=== PATIENT | male | born 1940 | race Caucasian/White ===

== ENCOUNTER 2019-11-20 14:42 | Inpatient (IN) | payer MEDICARE ==
[~2019-11-20] VITALS: Ht 177.8 cm; Wt 62.4 kg
--- NOTE | 2019-11-20 14:45 | NUR ---
Admission Note with Justification for Admission to [facility] Patient admitted to [facility] for protective oversight for emergency stabilization of acute psychiatric crisis. Pt admitted from: [facility] Mode of arrival: Wheelchair van Accompanied By: Wheelchair Van personnel Precipitating behaviors that initiated intake and admission: manic, lying in driveway, yelling at family, hearing voices,delusional, moving from 1 subject to another rapidly, paranoid, racing thoughts, insomnia. Description of failure of out patient attempts at stabilization in previous setting list behavior and medication trials: crisis intervention team in [facility]. Behaviors and assessment findings upon admission: Pt is calm upon admission. Interactive with staff. States that he is a mystic, grandiose thoughts. Compliant with cares. Plan: Admit for protective oversight for adjustment and stabilization of medications, behaviors and mood. Intense treatment regimen including groups, medication adjustments, therapy, consistent regimen for ADL's, self care, and sleep hygiene. Daily monitoring by Inpatient staff, Psychiatry, and Medical Physician.
[2019-11-20] MEDS ORDERED: ACETAMINOPHEN 325 MG TABLET PO PRN (15:30)
[2019-11-20] MEDS ORDERED: METHYL SALICYLATE/MENTHOL TOPICAL OINTMENT 57GM TUBE. TP PRN (15:30)
[2019-11-20] MEDS ORDERED: MAGNESIUM HYDROXIDE 2,400 MG/30 ML ORAL.SUSP. PO PRN (15:30)
[2019-11-20] MEDS ORDERED: MAG HYDROX/AL HYDROX/SIMETH 30 ML ORAL.SUSP PO PRN (15:30)
[2019-11-20] MEDS ORDERED: LITH300T22 PO (16:25)
[2019-11-20] MEDS ORDERED: RISP0.5T3 PO (16:25)
[2019-11-20] MEDS ORDERED: LEVO25TA4 PO (16:25)
[2019-11-20] MEDS ORDERED: OLAN5TAB9 PO (16:25)
[2019-11-20 16:58] LABS: BASO % 0 % (0-3); EOS # 0.1 x10^3/uL (0.0-0.7); EOS % 1 % (0-3); HEMATOCRIT 43.3 % (39.0-53.0); HEMOGLOBIN 14.4 g/dL (13.0-17.5); LYMPH % 10 % (24-48); MEAN CORPUSCULAR HEMOGLOBIN 32 pg (25-35); MEAN CORPUSCULAR HGB CONC 33 g/dL (31-37); MEAN CORPUSCULAR VOLUME 95 fL (79-100); MONO # 0.6 x10^3/uL (0.0-1.1); MONO % 6 % (0-9); NEUT # 8.1 x10^3uL (1.8-7.7); NEUT % 82 % (31-73); PLATELET COUNT 302 x10^3/uL (140-400); RED BLOOD COUNT 4.58 x10^6/uL (4.30-5.70); RED CELL DISTRIBUTION WIDTH 13.6 % (11.5-14.5); WHITE BLOOD COUNT 9.8 x10^3/uL (4.0-11.0)
[2019-11-20 17:14] LABS: ALBUMIN/GLOBULIN RATIO 0.7 (1.0-1.7); CALCIUM 9.4 mg/dL (8.5-10.1); CREATININE 1.6 mg/dL (0.7-1.3); GFR 41.9; MAGNESIUM 2.4 mg/dL (1.8-2.4); POTASSIUM 3.7 mmol/L (3.5-5.1); TOTAL BILIRUBIN 0.3 mg/dL (0.2-1.0); TOTAL PROTEIN 7.2 g/dL (6.4-8.2)
[2019-11-20 18:26] VITALS: BP 134/81
[2019-11-20 18:50] LABS: BILIRUBIN,URINE NEG (NEG); CLARITY,URINE CLEAR; COLOR,URINE YELLOW; GLUCOSE,URINE NEG (NEG)
[2019-11-20 18:51] LABS: BACTERIA,URINE 0 /HPF (0-FEW); NITRITE,URINE NEG (NEG); RBC,URINE RARE /HPF (0-2); SQUAMOUS EPITHELIAL CELL,UR OCC /LPF; UROBILINOGEN,URINE 0.2 mg/dL (0.2 mg/dL); WBC,URINE OCC /HPF (0-4)
[2019-11-20] MEDS: risperiDONE 0.5 MG TABLET. PO SCH (20:37)
[2019-11-20] MEDS: LITHIUM CARBONATE ER 300 MG TABLET.ER PO SCH (20:37)
--- NOTE | 2019-11-20 22:15 | PDOC ---
Exam Note: Quoc Note: Please also refer to the separate dictated note~for this date of service dictated separately.~Patient seen individually. Discussed the patient with Nursing staff reviewed the chart.~Reviewed interim history and current functioning. Reviewed vital signs,~Labs/ Radiology~and current medications noted below. Continue current treatment with the changes noted in the dictated addendum note Assessment: Vital Signs/I&O: Vital Signs Date Time Temp Pulse Resp B/P (MAP) Pulse Ox O2 Delivery O2 Flow Rate FiO2 11/20/19 18:26 98.9 95 18 134/81 (98) 95 Labs: Laboratory Tests Test 11/20/19 16:41 11/20/19 18:30 White Blood Count 9.8 x10^3/uL (4.0-11.0) Red Blood Count 4.58 x10^6/uL (4.30-5.70) Hemoglobin 14.4 g/dL (13.0-17.5) Hematocrit 43.3 % (39.0-53.0) Mean Corpuscular Volume 95 fL (79-100) Mean Corpuscular Hemoglobin 32 pg (25-35) Mean Corpuscular Hemoglobin Concent 33 g/dL (31-37) Red Cell Distribution Width 13.6 % (11.5-14.5) Platelet Count 302 x10^3/uL (140-400) Neutrophils (%) (Auto) 82 % (31-73) H Lymphocytes (%) (Auto) 10 % (24-48) L Monocytes (%) (Auto) 6 % (0-9) Eosinophils (%) (Auto) 1 % (0-3) Basophils (%) (Auto) 0 % (0-3) Neutrophils # (Auto) 8.1 x10^3uL (1.8-7.7) H Lymphocytes # (Auto) 1.0 x10^3/uL (1.0-4.8) Monocytes # (Auto) 0.6 x10^3/uL (0.0-1.1) Eosinophils # (Auto) 0.1 x10^3/uL (0.0-0.7) Basophils # (Auto) 0.0 x10^3/uL (0.0-0.2) Sodium Level 139 mmol/L (136-145) Potassium Level 3.7 mmol/L (3.5-5.1) Chloride Level 105 mmol/L (98-107) Carbon Dioxide Level 28 mmol/L (21-32) Anion Gap 6 (6-14) Blood Urea Nitrogen 19 mg/dL (8-26) Creatinine 1.6 mg/dL (0.7-1.3) H Estimated GFR (Cockcroft-Gault) 41.9 BUN/Creatinine Ratio 12 (6-20) Glucose Level 111 mg/dL (70-99) H Calcium Level 9.4 mg/dL (8.5-10.1) Magnesium Level 2.4 mg/dL (1.8-2.4) Total Bilirubin 0.3 mg/dL (0.2-1.0) Aspartate Amino Transferase (AST) 22 U/L (15-37) Alanine Aminotransferase (ALT) 42 U/L (16-63) Alkaline Phosphatase 76 U/L (46-116) Total Protein 7.2 g/dL (6.4-8.2) Albumin 3.0 g/dL (3.4-5.0) L Albumin/Globulin Ratio 0.7 (1.0-1.7) L Urine Collection Type Unknown Urine Color Yellow Urine Clarity Clear Urine pH 7.0 Urine Specific [place] 1.015 Urine Protein Neg (NEG-TRACE) Urine Glucose (UA) Neg mg/dL (NEG) Urine Ketones (Stick) Neg mg/dL (NEG) Urine Blood Neg (NEG) Urine Nitrite Neg (NEG) Urine Bilirubin Neg (NEG) Urine Urobilinogen Dipstick 0.2 mg/dL (0.2 mg/dL) Urine Leukocyte Esterase Neg (NEG) Urine RBC Rare /HPF (0-2) Urine WBC Occ /HPF (0-4) Urine Squamous Epithelial Cells Occ /LPF Urine Bacteria 0 /HPF (0-FEW) Current Medications: Meds: Current Medications Medications (Trade) Dose Ordered Sig/Ki Route PRN Reason Start Time Stop Time Status Last Admin Dose Admin Opp Carbonate (Lithobid) 300 mg BID PO 11/20/19 21:00 11/20/19 20:37 Risperidone (RisperDAL) 0.5 mg BID PO 11/20/19 21:00 11/20/19 20:37 I have reviewed the current psychotropics carefully including drug interactions. Risk benefit ratio favors no change other than as noted in my dictated progress note. Diagnosis: Problems: (1) Bipolar disorder, curr episode mixed, severe, with psychotic features WAN SEO MD Nov 20, 2019 22:15
--- NOTE | 2019-11-20 23:04 | NUR ---
Pt up in w/c in hallway at shift change. Pt A/O, pleasant, and interactive. Pt asking appropriate questions of staff, all questions answered to pt's satisfaction. Pt provided a walker this evening and has ambulated with a steady gait in the hallway some this evening. Pt cooperative with assessment and compliant with medications administered whole.
[2019-11-21 06:07] LABS: HEMOGLOBIN A1C 5.5 % (4.8-5.6)
[2019-11-21 06:22] VITALS: BP 157/91
[2019-11-21 07:09] LABS: THYROXINE 5.5 ug/dL (4.5-12.0)
[2019-11-21] MEDS: LITHIUM CARBONATE ER 300 MG TABLET.ER PO SCH ×2 (07:47→20:36)
[2019-11-21] MEDS: risperiDONE 0.5 MG TABLET. PO SCH ×2 (07:47→20:36)
[2019-11-21] MEDS ORDERED: LEVOTHYROXINE 25 MCG TABLET. PO SCH (09:00)
--- NOTE | 2019-11-21 10:43 | RAD ---
EXAM: Head CT without contrast. HISTORY: Mental status changes. TECHNIQUE: Computed tomographic images of the head were obtained without contrast. *One or more of the following individualized dose reduction techniques were utilized for this examination: 1. Automated exposure control. 2. Adjustment of the mA and/or kV according to patient size. 3. Use of iterative reconstruction technique. COMPARISON: None. FINDINGS: There is no acute or subacute extra-axial or intraparenchymal hemorrhage. There is no mass effect or midline shift. There is no hydrocephalus. There are areas of decreased attenuation within the cerebral white matter, nonspecific and likely related to chronic small vessel disease. There is cerebral volume loss. There is fluid throughout the left greater than right mastoid air cells. The visualized paranasal sinuses and orbits are unremarkable. No calvarial lesion is seen. IMPRESSION: 1. No acute intracranial finding. Note is made that MRI is more sensitive for acute infarction. 2. Bilateral cerebral white matter changes, likely due to chronic small vessel disease. 3. Left greater than right mastoid fluid. Electronically signed by: Iman Gordon MD (11/21/2019 10:40 AM) [id number]
--- NOTE | 2019-11-21 11:21 | NUR ---
NURSING NOTE REQUEST FOR MEDICAL RECORDS REQUEST FOR MEDICAL RECORDS FAXED TO [facility] AT FOR PSYCH UNIT STAY IN [address] SEO REQUEST. FAX CONFIRMATION IN CHART. LESLIE MARTINO.
--- NOTE | 2019-11-21 12:13 | CONS ---
DATE OF CONSULTATION: 11/21/2019 ATTENDING PHYSICIAN: Dr. King. We are asked to see this patient for medical consultation. HISTORY OF PRESENT ILLNESS: The patient is a 79-year-old gentleman directly admitted up here from the [place], [place]. I may have taken care of him during hospitalization at [facility]. He seems to recognize my face. The patient is fairly alert and cooperative. He was sent here for treatment of psychosis related to bipolar disorder, mixed, with psychotic features. There is no suicidal ideation. He is not agitated. He was very cooperative. CURRENT MEDICINES: Include Synthroid, lithium, Zyprexa and risperidone. Various p.r.n. meds have been started. ALLERGIES: PREDNISOLONE. Exact etiology is unclear. SOCIAL HISTORY: He is a nonsmoker, nondrinker. FAMILY HISTORY: Unobtainable. REVIEW OF SYSTEMS: Unremarkable for any recent exposures, fevers, chills, cough, congestion, shortness of breath, dyspnea. All other systems reviewed and determined to be negative. PHYSICAL EXAMINATION: GENERAL: When I saw him, this is a pleasant, middle-aged gentleman. INITIAL VITAL SIGNS: Showed a blood pressure of 134/81 mmHg. His pulse is 90 and regular, temperature 98.9 degrees Fahrenheit and his oxygen saturation 95% on room air. HEENT: Head is without trauma. The pupils are reactive. Sclerae are nonicteric. The oropharynx is clear. NECK: Supple, no bruits identified. LUNGS: Otherwise clear. CARDIOVASCULAR: Showed regular heart tones. No gallops, no murmurs. Peripheral pulses are palpable and full. ABDOMEN: Soft, obese, protuberant. No organomegaly. Bowel sounds are normoactive. EXTREMITIES: Show no cyanosis or edema. NEUROLOGIC: Focally intact. Speech is fluent. No focal deficits. PERTINENT LABORATORY STUDIES: His hemoglobin is 14.4 g/dL with a white count of 9800. Electrolytes are within normal range. Creatinine is slightly elevated at 1.6 mg/dL. Nonfasting blood sugar 111. Hemoglobin A1c is normal. Transaminases and liver functions are normal. ASSESSMENT: 1. This 79-year-old gentleman has bipolar disorder, mixed with some psychosis. He is currently calm. 2. Mild chronic kidney disease stage 2. Etiology unclear. He is not on a diuretic. 3. Degenerative arthritis. 4. This patient is stable from a medical standpoint. RECOMMENDATIONS: Home meds were reviewed. We will continue them as ordered. Thank you again for asking us to see this patient for medical consultation. We should gladly follow along closely during his inpatient stay. PETE DELATORRE MD DR: PERRY/hamlet JOB#: [id number] / [id number] WAN Dunham MD, AHMED MD
--- NOTE | 2019-11-21 12:57 | NUR ---
NURSING SHIFT NOTE PT WAS IN DINNING ROOM THIS AM UPON ASSESSMENT AND MEDICATION ADMINISTRATION. PT TOOK HIS MEDS WHOLE WITH NO PROBLEM. PT IS A&O X4 THIS AM, CALM, COOPERATIVE, AND COMPLIANT WITH CARES. PT DENIES HEARING ANY VOICES THIS AM, DENIES ANY HALLUCINATIONS. PT LUNGS ARE DIMINISHED, PT DOES HAVE A COUGH THIS AM. PT HAS A SCAN ON HIS LEFT HAND THAT IS HEALING WELL AND BRUISING ON HIS ARMS. PT HAS BEEN INTERACTIVE WITH OTHERS AND APPROPRIATE THUS FAR. PT DID REST IN HIS BED BEFORE LUNCH. NO COMPLICATIONS. WILL CONTINUE TO MONITOR. LESLIE MARTINO.
[2019-11-21] MEDS: OLANZapine 5 MG TABLET PO PRN (13:14)
--- NOTE | 2019-11-21 13:15 | NUR ---
Patient has been sitting with a female peer that is speaking negatively about [facility]. At lunch AT was talking to the female and patient kept inserting himself into the conversation and interrupting. He was getting upset and agitated by the conversation. Patient verbally redirected but he continued to be intrusive. PRN zyprexa given for agitation per order. 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 Patient appears calmer and is heading to day room for movie activity. Will continue to monitor.
[2019-11-21 14:10] LABS: THYROID STIM HORMONE (TSH) 1.826 uIU/mL (0.358-3.740)
[2019-11-21 15:50] VITALS: BP 166/84
--- NOTE | 2019-11-21 16:21 | NUR ---
PSYCHOSOCIAL ASSESSMENT ADMISSION DATE: 11/20/19 CONTACT INFORMATION: DPOA/Guardian Contact Name: Patrick Muñiz-spouse/POA Contact Phone #: [phone] ETHNIC ORIGIN: REASONS FOR ADMISSION: Agitated Angry Delusions Poor impulse control Sig. Change Sleep Suspicious/paranoid ADDITIONAL ADMISSION COMMENTS: Per intake, hearing voices, delusional, manic, psychotic, agitated, yelling at family, labile mood, racing thoughts, paranoid, insomnia, and laying out in hot driveway. REASON FOR ADMISSION IN PATIENT/FAMILY'S OWN WORDS: Per Matteo, this is my "fifth manic episode." PATIENT/FAMILY EXPECTATIONS FOR ADMISSION: Per Matteo, "Anything my wants, she wants me to be well." LIVING SITUATION: Patient lives with: Spouse Patrick Address: [address] [place] [id number] Phone #: [phone] FAMILY RELATIONS: Marital Status: # of Marriages: 3 # of Children: 4 [facility] Family Support: Cooperative Additional Comments r/t Family: Matteo was to Clare for 25 years. They had two children, Jason ([place]) and Moshe ( from cancer 8 years ago). Clare and Matteo after Clare fell in love with another man. Matteo has periodic phone conversations with Jason. Matteo remarried to Maite. Maite had two children from a previous marriage, Shailesh and Vinita. Maite and Matteo were for 11 years before Maite of cancer. Matteo continues to have regular communication with Bill and Vinita. Matteo is currently to Patrick. They have been for 13 years. Matteo describes their marriage as wonderful until he's manic and then Patrick "can't stand to be around." SIGNIFICANT PSYCHIATRIC/MEDICAL HISTORY: Psychiatric/Treatment History: Matteo reports being hospitalized five times, starting [place] [address]. Dr. Brower is his current psychiatrist and Matteo sees him every two months. Matteo has also used the counseling supports of [facility]. Pertinent Family History: Matteo denies mental illness in his family of origin. He reports his brother Juan was an alcoholic (recovering) and suspects his father was an undiagnosed alcoholic. HISTORICAL DATA: Childhood Environment: [place] Childhood Environment Additional Comments: Matteo was born in [facility] to Matteo and Rebecca Parkin. He was the second child born of four. His brother Juan is , Jeannie resides in [place], and Kalyn resides in [place]. Matteo recalls his childhood fondly and stated "we had a good time." Trauma History: None reported Drug Abuse History last 12 months: None Comment: Matteo has a monthly louis. 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 Matteo also worked in the [employer] industry. service: Five years- Last Size Baptist background: Matteo is of the Sabianist john and belongs to [facility] in [place]. He attends services regularly and reports his john is "my life." Sexual orientation: Heterosexual Educational Level: Matteo graduated high school and obtained a BA in economics. Past/Present Interests/Hobbies: Matteo enjoys exercising, volunteer work, protestant involvement, camping, and cooking. Financial support/resources: Senior Living/Pension Social Security Monthly income: adequate Person handling finances: Matteo and Patrick Do you have a history of legal problems: None reported Cultural considerations: None reported. SOCIAL RELATIONSHIPS-CURRENT/PAST: Psychiatrist: Dr. Brower PCP: Dr. Nieves Counselor/Therapist: [facility] [employer]: N/A Support Group: N/A Hospitality Ambassador/.Net Architect: N/A Other relationships: Support from family and friends STRENGTHS & WEAKNESSES: Patient's strengths: Good verbal skills Ambulatory Engaged Patient's weaknesses: Impulsive Health problems Other patient weaknesses: Manic, grandiose PRELIMINARY PLAN OF TREATMENT: Preliminary plan: Apr. Hallucination/Delus Promote Coping Skill Medication Stabilization Monitor Med Effects Control abnormal behavior Other preliminary treatment comments: Matteo will be encouraged to attend group programming while on the unit. DISCHARGE PLANNING: Discharge planning/disposition: Home Additional discharge needs identified: Follow up with PCP and psychiatrist ADDITIONAL INFORMATION: Other Pertinent Data: Met with Matteo on 11/19 and 11/20 to complete psychosocial assessment and social history. Matteo is alert and oriented to person, place, year, and month. He is able to make his needs and wishes known. He is hyperverbal with labile mood and tearfulness throughout discussion. Matteo expresses the desire to get better and return home.
--- NOTE | 2019-11-21 16:32 | TX PLAN ---
Interdisciplinary Tx Plan Admission Information Nov 20, 2019 at 14:42 Legal Status (on Admission): Voluntary, DPOA DPOA/Guardian Name: Patrick Muñiz-spouse/POA Contact Other Contact Name: Patrick Other Contact Verified Code Status: Full Code Allergies: Coded Allergies: prednisolone (Verified Allergy, Mild, 11/20/19) Estimated Length of Stay: 14 Diagnoses Primary Diagnosis: Bipolar mixed with psychotic features Reasons for Admission: Delusions, Agitated, Sig. Change Sleep, Angry, Suspicious/paranoid, Poor impulse control Problem in Patient's Words: Per Matteo, this is my "fifth manic episode." Additional Admission Comments: Per intake, hearing voices, delusional, manic, psychotic, agitated, yelling at family, labile mood, racing thoughts, paranoid, insomnia, and laying out in hot driveway. Problems Active Problems: Manic Grandiose Not sleeping Inactive Problems: Medication complaint Pt Strengths/Limitations Ability for [place]: Fair Cognitive Functioning/Ability: Fair Communication Skills/Ability: Fair Financial Resources: Fair Insight/Judgement: Fair Intellectual Ability: Good Physical Health: Fair Social Skills: Fair Stability in Family: Fair Verbal Skills: Good Discharge Criteria Discharge Criteria: Adequate arrangements @DC, Adequate self-care, Improved behavior, Improved mood/thought Preliminary Discharge Plan Preliminary DC Plan: Home Special Precautions Fall Risk: High Initial D/C Plan Home with once stable Identified Discharge Needs: Follow up with PCP and psychiatrist Currently Utilized Resources Currently Utilized Resources/P: PCP, psychiatry, counseling prn Identified Problems/Hx/Goals Objectives/Short-Term Goals Short Term Goals: Control abnormal behavior, Dec. Hallucination/Delus, Medication Stabilization, Monitor Med Effects, Promote Coping Skill Short Term Goals in Patient's: Per Matteo, "Anything my wants, she wants me to get better." Interventions/Frequency Staff Interventions/Frequency&: Nursing to provide routine checks, medication administration, and adl support. Psychiatry visit 3-5 times weekly. SW visits twice weekly. Recreational and SW groups as Matteo will participate. 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 Matteo also worked in the [employer] industry. Social: Matteo enjoys exercising, volunteer work, oriental orthodox involvement, and camping. Education: Matteo graduated high school and obtained a BA in economics. Community Follow-up PCP, psychiatry, counseling prn Treatment Plan Explained Patient/Dust Mixer had this treatment plan explained to him/her as indicated by the signature below and has been given the opportunity to ask questions and make suggestions: Date: Patient/Dust Mixer Signature: MICHELLE ART Nov 21, 2019 16:32
--- NOTE | 2019-11-21 22:15 | PDOC ---
Exam Note: Quoc Note: Please also refer to the separate dictated note~for this date of service dictated separately.~Patient seen individually. Discussed the patient with Nursing staff reviewed the chart.~Reviewed interim history and current functioning. Reviewed vital signs,~Labs/ Radiology~and current medications noted below. Continue current treatment with the changes noted in the dictated addendum note Assessment: Vital Signs/I&O: Vital Signs Date Time Temp Pulse Resp B/P (MAP) Pulse Ox O2 Delivery O2 Flow Rate FiO2 11/21/19 15:50 98.6 94 20 166/84 (111) 95 Room Air I & O 11/20/19 11/20/19 11/21/19 14:59 22:59 06:59 Intake Total 240 ml 120 ml Balance 240 ml 120 ml Labs: Laboratory Tests Test 11/21/19 05:50 Webster Level 0.8 mmol/L (0.6-1.2) Webster Last Dose Date 11/20/19 Webster Last Dose Time 2100 Current Medications: Meds: Current Medications Medications (Trade) Dose Ordered Sig/Ki Route PRN Reason Start Time Stop Time Status Last Admin Dose Admin Levothyroxine Sodium (Synthroid) 25 mcg DAILY PO 11/21/19 09:00 11/21/19 07:47 I have reviewed the current psychotropics carefully including drug interactions. Risk benefit ratio favors no change other than as noted in my dictated progress note. Diagnosis: Problems: (1) Bipolar disorder, curr episode mixed, severe, with psychotic features WAN SEO MD Nov 21, 2019 22:15
--- NOTE | 2019-11-21 22:45 | NUR ---
Pt sitting in room at shift change but came down to the day room for evening movie after his shower. Pt calm and interactive when approached, but he does become anxious and tearful after speaking with a female peer in the hallway on his way to his room. Pt was removed from the situation and escorted to his room. I spoke with pt 1:1 about his concerns and he was much calmer after. Pt cooperative with assessment and compliant with medications administered whole.
[2019-11-22] MEDS: LEVOTHYROXINE 25 MCG TABLET. PO SCH (04:50)
[2019-11-22 06:24] VITALS: BP 161/83
[2019-11-22] MEDS: risperiDONE 0.5 MG TABLET. PO SCH ×2 (08:21→20:45)
[2019-11-22] MEDS: LITHIUM CARBONATE ER 300 MG TABLET.ER PO SCH ×2 (08:21→20:45)
--- NOTE | 2019-11-22 09:39 | HP ---
ADMIT DATE: 11/20/2019 PSYCHIATRIC ADMISSION HISTORY/EVALUATION This late entry 11/20/2019 covers elements not covered in my initial note. SUBJECTIVE: I met with the patient evening of 11/20/2019 for this evaluation. IDENTIFYING DATA: The patient is a 79-year-old male referred to us from [facility] where he presented from home on account of marked agitation, yelling at family, having a labile mood, hearing voices, delusional, being manic with racing thoughts, jumping from one thing to another. He had laid himself in the driveway. Behaviors were deemed dangerous, unmanageable at the home. He was evaluated by the crisis intervention team of the local [facility] and taken to the Emergency Room at [facility] on 11/14/2019. Seroquel was started, then discontinued. Behaviors and mood lability persisted. He was having racing thoughts, tearfulness, deemed a potential danger to himself while he to return home without psychiatric stabilization, then referred to us by his primary care physician, Dr. Israel Nieves and his psychiatrist, Dr. Dumont. CHIEF COMPLAINT: "I don't know what to do." The patient was tearful, anxious, quite labile. He had been living with his , but his moved out with other family due to the patient's marked manic symptoms. HISTORY OF PRESENT ILLNESS: The patient has a history of bipolar disorder, being followed by the local [facility]. Recently, he has had an exacerbation of his symptoms, hearing voices, delusional, appearing manic with marked mood lability, yelling at family, jumping from one subject to the other, having marked paranoia, racing thoughts, tearfulness. He has had sleep and appetite changes. No active suicidal or homicidal ideation. PAST PSYCHIATRIC HISTORY: As above. MEDICAL HISTORY: Hypertension, BPH, benign neoplasm of colon, hearing loss, hyperlipidemia, hyperthyroidism, melanoma, neuropathy, osteoarthritis, diverticulitis, status post appendectomy, total hip replacement bilateral, chronic kidney disease. ACCU-CHEKS: None. CODE STATUS: Full code. ALLERGIES: PREDNISOLONE. FAMILY HISTORY: Noncontributory. SOCIAL HISTORY: No history of alcohol, drug abuse, physical, sexual or elder abuse. He is not known to be a perpetrator. CURRENT PSYCHOTROPICS: Risperdal 0.5 mg b.i.d., lithium carbonate 300 mg controlled release b.i.d., Zyprexa 5 mg b.i.d. p.r.n. [place] is being drawn. REACTION TO HOSPITALIZATION: The patient accepting of it. ASSETS: Supportive family. REVIEW OF SYSTEMS: Positive for some tiredness, impaired ambulation with walker. No CV, , pulmonary, eye, ENT system symptoms on review. Hard of hearing as noted. MENTAL STATUS EXAMINATION: The patient was seen individually evening of 11/20/2019. He is oriented to himself and situation, somewhat anxious, restless, tearful at times, distractible. He is paranoid, suspicious. No active suicidal or homicidal ideation. Attention span is short. Language function intact. Intellect average. Insight somewhat limited. Judgment intact to standard questioning. LABORATORY DATA: Reviewed. IMPRESSION: Bipolar disorder, mixed with psychotic features versus depressed with psychotic features; anxiety disorder, unspecified; mild cognitive impairment; impulse control disorder. Rest as above. PLAN: Admit to Geropsychiatry Unit at [facility]. I will see the patient daily individually from a psychiatric standpoint. Medical followup with Dr. Guillory/Dr. Lu. Continue the patient on his current psychotropics. Obtain past psychiatric records. CT head was done at [facility], we will review that in time. We will make further adjustments in psychotropics post baseline assessment. ESTIMATED LENGTH OF STAY: 10-12 days. DISPOSITION PLANS: Possibly back home once he is psychiatrically stable. WAN SEO MD DR: MACEY/hamlet JOB#: [id number] / [id number]
--- NOTE | 2019-11-22 10:25 | NUR ---
ACTIVITY THERAPY ASSESSMENT Completed based on observation, notes, and interview. Pt. was in his room and agreeable to speak with [facility] after she read a letter he wrote. The letter was difficult to read and follow about covid and and masks. Pt. was tearful off and on during the interview. He knew he was at [place] and was in a manic state, explained this was his fifth episode in 23 years and thought these states usually last a couple weeks. He said he was from [place] and was feeling really good after he wrote that letter. He thinks everyone should be wearing masks. It was difficult to comprehend everything he was tearful about: talked about an issue with his step daughter and something about his not wanting him to sweat anymore. He was wearing a mask off and on during the interview and that made it difficult to understand. He explained his glasses, hearing aid, dentures that are all not functioning right now. When asked what he enjoyed doing in his leisure time, he paused, reached out for BRAZER RESISTANCE's hand and looked her in the eye and softly said "I take care of people the best I can." He needed some guidance to get more information about hobbies: "anything that's good" (music), "take on projects," collect things (seashells), journals/writing, did "4,000" crunches in his bed, volunteers for [employer], rebuilt [employer]. He believes he has a little guardian isaura on his shoulder that whispers in his ear and he chuckled as he explained he just tries to do what they want him to do. Pt. has a tendency to get involved with other's issues, often increasing agitation. [facility] walked with Pt. to group after assessment, where he used CleanBeeBabyalker to listen and participate. Initial goal aimed to increase focus/attention: Pt. will participate in at least three Activity Therapy groups, fully, per week. Addendum: 12/05/19 at 1113 by SHEKHAR GOFF ACT Goal changed 12/05/19: Pt. will participate in at least one Activity Therapy group per day
--- NOTE | 2019-11-22 10:38 | NUR ---
Returned phone call to Patrick, pura/ARGELIA, and provided update as reported at treatment team meeting on 11/21/19. Patrick will plan to be involved in treatment team meeting on 11/28/19.
--- NOTE | 2019-11-22 13:27 | PN ---
DATE: 11/21/2019 PSYCHIATRIC PROGRESS NOTE This late entry 11/21/2019 covers elements not covered in my initial note. SUBJECTIVE: I met with the patient evening of 11/21/2019 and staffed at a treatment team meeting with the entire team in the morning. Savanna Martinez, bariatric program coordinator, social service staff and Britany along with LESLIE Downs and Graciela attended the treatment team meeting along with the patient's , Sylvain. We will obtain CT head results from [facility] if not repeated on our unit. Appetite 75%, sleeping 2-3 hours at night. He has been calmer, pleasant. At times, he is noted to be grandiose and manic, at times depressed. PSYCHOSOCIAL HISTORY. Reportedly, he was driving until recently, volunteering in [employer] projects and had been treated outpatient for his bipolar disorder. REVIEW OF SYSTEMS: Ambulation impaired with walker. No hard of hearing. No CV, , pulmonary, eye system symptoms on review. MENTAL STATUS EXAMINATION: The patient is reasonably oriented. Speech coherent, quite tearful, anxious, restless, following me around the unit in the evening on rounds. Abstraction fair, computation impaired, language function intact, attention span short. Mood and affect remains anxious, labile, paranoid. LABORATORY DATA: Reviewed. IMPRESSION: Bipolar 1 disorder, mixed with psychotic features versus manic with psychotic features; anxiety disorder, unspecified; impulse control disorder, unspecified. Rest as above. PLAN: Continue current psychotropics. Check a lithium level. Obtain past psychiatric records. CT head as noted. Make further adjustments as clinically indicated. MAN Wili SEO MD DR: MACEY/hamlet JOB#: [id number] / [id number]
--- NOTE | 2019-11-22 13:50 | NUR ---
Nursing note: Pt in dining room for morning meds and assessment. He was pleasant, med compliant, and cooperative. He showed this nurse all the notes he had been writing down about his day and where he had logged his sleep hours. He was given a pocket talker for morning group and has continued to use it. He has been very social with peers. He is currently sitting in the day room. Will continue to monitor.
[2019-11-22 15:35] VITALS: BP 152/80
[2019-11-22] MEDS ORDERED: traZODone 50 MG TABLET. PO PRN (17:00)
--- NOTE | 2019-11-22 22:16 | PDOC ---
Exam Note: Quoc Note: Please also refer to the separate dictated note~for this date of service dictated separately.~Patient seen individually. Discussed the patient with Nursing staff reviewed the chart.~Reviewed interim history and current functioning. Reviewed vital signs,~Labs/ Radiology~and current medications noted below. Continue current treatment with the changes noted in the dictated addendum note Assessment: Vital Signs/I&O: Vital Signs Date Time Temp Pulse Resp B/P (MAP) Pulse Ox O2 Delivery O2 Flow Rate FiO2 11/22/19 15:35 97.9 98 20 152/80 (104) 97 11/21/19 15:50 Room Air I & O 11/21/19 11/21/19 11/22/19 15:00 23:00 07:00 Intake Total 720 ml 240 ml 120 ml Balance 720 ml 240 ml 120 ml Current Medications: Meds: Current Medications Medications (Trade) Dose Ordered Sig/Ki Route PRN Reason Start Time Stop Time Status Last Admin Dose Admin Levothyroxine Sodium (Synthroid) 25 mcg DAILY06 PO 11/22/19 06:00 11/22/19 04:50 I have reviewed the current psychotropics carefully including drug interactions. Risk benefit ratio favors no change other than as noted in my dictated progress note. Diagnosis: Problems: (1) Bipolar disorder, current episode manic severe with psychotic features (2) Mild cognitive impairment (3) Anxiety disorder, unspecified (4) Impulse control disorder, unspecified (5) Bipolar disorder, curr episode mixed, severe, with psychotic features WAN SEO MD Nov 22, 2019 22:16
--- NOTE | 2019-11-22 23:59 | NUR ---
Pt located in his room this evening, visiting with a male peer. Pt hyperverbal at times, laughing uncontrollably at times. Compliant with whole medications. Pt has been writing notes addressed to the doctor. PRN Trazodone administered at midnight per pt request.
[2019-11-23] MEDS: traZODone 50 MG TABLET. PO PRN ×2 (00:03→20:40)
[2019-11-23] MEDS: LEVOTHYROXINE 25 MCG TABLET. PO SCH (05:18)
[2019-11-23 06:43] VITALS: BP 164/83
[2019-11-23] MEDS: LITHIUM CARBONATE ER 300 MG TABLET.ER PO SCH (08:20)
[2019-11-23] MEDS: risperiDONE 0.5 MG TABLET. PO SCH ×2 (08:20→20:40)
--- NOTE | 2019-11-23 11:25 | NUR ---
Pt is calm, cooperative, compliant. No agitation,m no aggression, no hallucinations, no delusions. He is compliant with his medications and assessment.
[2019-11-23 15:58] VITALS: BP 120/67
--- NOTE | 2019-11-23 22:14 | PDOC ---
Exam Note: Quoc Note: Please also refer to the separate dictated note~for this date of service dictated separately.~Patient seen individually. Discussed the patient with Nursing staff reviewed the chart.~Reviewed interim history and current functioning. Reviewed vital signs,~Labs/ Radiology~and current medications noted below. Continue current treatment with the changes noted in the dictated addendum note Assessment: Vital Signs/I&O: Vital Signs Date Time Temp Pulse Resp B/P (MAP) Pulse Ox O2 Delivery O2 Flow Rate FiO2 11/23/19 15:58 98.5 100 20 120/67 (84) 96 11/21/19 15:50 Room Air I & O 11/22/19 11/22/19 11/23/19 15:00 23:00 07:00 Intake Total 600 ml 600 ml Balance 600 ml 600 ml Current Medications: I have reviewed the current psychotropics carefully including drug interactions. Risk benefit ratio favors no change other than as noted in my dictated progress note. Diagnosis: Problems: (1) Bipolar disorder, curr episode mixed, severe, with psychotic features (2) Impulse control disorder, unspecified (3) Mild cognitive impairment (4) Anxiety disorder, unspecified (5) Bipolar disorder, current episode manic severe with psychotic features WAN SEO MD Nov 23, 2019 22:14
--- NOTE | 2019-11-23 23:56 | NUR ---
Pt has been interacting with another male pt this evening. Compliant with whole medications. Became tearful when talking about his and how beautiful she is. Less manic tonight.
[2019-11-24] MEDS: traZODone 50 MG TABLET. PO PRN (00:46)
[2019-11-24] MEDS: LEVOTHYROXINE 25 MCG TABLET. PO SCH (05:30)
[2019-11-24 06:39] VITALS: BP 132/67
--- NOTE | 2019-11-24 07:14 | PDOC ---
Exam Note: Quoc Note: This note is a late entry for 11/22/2019 covers elements not covered in my initial note. Subjective: The patient was seen individually in the evening of 11/22/2019. Per Becca NELSON, he slept 1-1/2 hours previous night. He took meds in the morning, less intrusive. We are awaiting records from [facility]. I have also received a note from Savanna Wilkins, Horse Show Judge/social service staff. This patients Jolly power of industrial electrician wants me to call the patients psychiatrist Dr. Philippe, #[phone] to discuss possibly changing lithium to an alternate mood stabilizer. I had already considered this since his creatinine is somewhat elevated, GFR is in the 40s, but we will observe him another day and then decide. Review of Systems: Ambulation impaired with walker. No CV, , pulmonary, eye system symptoms on review. He has vague somatic symptoms. Mental Status Exam: The patient is oriented to himself and situation. Speech has some latency, somewhat pressured at times. He is talking about doing [employer] projects and quite verbal about this. Attention span is short. Language function is intact. Mood and affect remains labile. Laboratory Data: Reviewed. Impression: Bipolar disorder, manic with psychotic features. Anxiety disorder unspecified. Impulse control disorder unspecified. Mild cognitive impairment. Plan: Given his marked insomnia, we will add trazodone 50 mg h.s. p.r.n., may repeat x1. Rest unchanged for now. Consider changing lithium to Depakote. Assessment: Vital Signs/I&O: Vital Signs Date Time Temp Pulse Resp B/P (MAP) Pulse Ox O2 Delivery O2 Flow Rate FiO2 11/24/19 06:39 97.5 85 18 132/67 (88) 97 11/21/19 15:50 Room Air I & O 11/23/19 11/23/19 11/24/19 15:00 23:00 07:00 Intake Total 960 ml 360 ml Balance 960 ml 360 ml Current Medications: I have reviewed the current psychotropics carefully including drug interactions. Risk benefit ratio favors no change other than as noted in my dictated progress note. Diagnosis: Problems: (1) Bipolar disorder, curr episode mixed, severe, with psychotic features (2) Impulse control disorder, unspecified (3) Mild cognitive impairment (4) Anxiety disorder, unspecified (5) Bipolar disorder, current episode manic severe with psychotic features WAN SEO MD Nov 24, 2019 07:14
--- NOTE | 2019-11-24 07:35 | PDOC ---
Exam Note: Quoc Note: This note is a late entry for 11/23/2019 covers elements not covered in my initial note. Subjective: The patient was seen individually in the evening of 11/23/2019. Per Gin NELSON, he slept 4-1/4 hours previous night. He has been somewhat manic, hyperverbal and I met with him in the evening. 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 He was laughing uncontrollably at times previous evening. He was writing profuse notes, page after page, disorganized. He believes one or the other patients on the unit is his girlfriend. Review of Systems: Ambulation impaired with walker. No CV, , pulmonary, eye system symptoms on review. He has vague somatic symptoms. Mental Status Exam: The patient is oriented to himself and situation. Speech has some latency, somewhat pressured at times. Abstraction is fair. Computation impaired. Attention span is short. Language function is intact. Mood and affect remains labile, manic. Laboratory Data: Reviewed. AST 22 and ALT 42, alkaline phosphatase 76, BUN 19 and creatinine 1.6. Creatinine clearance is in the 40s. Impression: Bipolar disorder, manic with psychotic features. Anxiety disorder unspecified. Impulse control disorder unspecified. Mild cognitive impairment. Plan: We will stop the patients lithium. Start Depakote ER 500 mg p.o. h.s. Check CBC, CMP, valproic acid level, ammonia level in 3 days for bipolar disorder stabilization. Continue rest unchanged. Assessment: Vital Signs/I&O: Vital Signs Date Time Temp Pulse Resp B/P (MAP) Pulse Ox O2 Delivery O2 Flow Rate FiO2 11/24/19 06:39 97.5 85 18 132/67 (88) 97 11/21/19 15:50 Room Air I & O 11/23/19 11/23/19 11/24/19 15:00 23:00 07:00 Intake Total 960 ml 360 ml Balance 960 ml 360 ml Current Medications: I have reviewed the current psychotropics carefully including drug interactions. Risk benefit ratio favors no change other than as noted in my dictated progress note. Diagnosis: Problems: (1) Bipolar disorder, curr episode mixed, severe, with psychotic features (2) Impulse control disorder, unspecified (3) Mild cognitive impairment (4) Anxiety disorder, unspecified (5) Bipolar disorder, current episode manic severe with psychotic features WAN SEO MD Nov 24, 2019 07:35
[2019-11-24] MEDS: DIVALPROEX ER 500 MG TAB.ER.24H PO SCH (08:03)
[2019-11-24] MEDS: risperiDONE 0.5 MG TABLET. PO SCH ×2 (08:04→20:40)
--- NOTE | 2019-11-24 11:10 | NUR ---
Pt is calm, cooperative and compliant. Pt states he is manic. No agitation, no aggression. Denies SI/HI. He is compliant with medication and assessment.
[2019-11-24 16:32] VITALS: BP 112/72
[2019-11-24] MEDS: traZODone 100 MG TABLET. PO PRN (20:40)
--- NOTE | 2019-11-24 22:20 | PDOC ---
Exam Note: Quoc Note: Please also refer to the separate dictated note~for this date of service dictated separately.~Patient seen individually. Discussed the patient with Nursing staff reviewed the chart.~Reviewed interim history and current functioning. Reviewed vital signs,~Labs/ Radiology~and current medications noted below. Continue current treatment with the changes noted in the dictated addendum note Assessment: Vital Signs/I&O: Vital Signs Date Time Temp Pulse Resp B/P (MAP) Pulse Ox O2 Delivery O2 Flow Rate FiO2 11/24/19 16:32 97.4 99 18 112/72 (85) 95 11/21/19 15:50 Room Air I & O 11/23/19 11/23/19 11/24/19 15:00 23:00 07:00 Intake Total 960 ml 360 ml Balance 960 ml 360 ml Current Medications: Meds: Current Medications Medications (Trade) Dose Ordered Sig/Ki Route PRN Reason Start Time Stop Time Status Last Admin Dose Admin Divalproex Sodium (Depakote Er) 500 mg DAILY PO 11/24/19 09:00 11/24/19 08:03 Trazodone HCl (Desyrel) 100 mg PRN QHS PRN PO INSOMNIA, use first 11/24/19 16:30 11/24/19 20:40 I have reviewed the current psychotropics carefully including drug interactions. Risk benefit ratio favors no change other than as noted in my dictated progress note. Diagnosis: Problems: (1) Bipolar disorder, curr episode mixed, severe, with psychotic features (2) Impulse control disorder, unspecified (3) Mild cognitive impairment (4) Anxiety disorder, unspecified (5) Bipolar disorder, current episode manic severe with psychotic features WAN SEO MD Nov 24, 2019 22:20
--- NOTE | 2019-11-24 23:56 | NUR ---
Pt delusional this evening, stating that he is an undercover [employer] agent. Pt states that he is going home tomorrow. Compliant with whole medications. Interactive with staff and other patients.
[2019-11-25] MEDS: traZODone 50 MG TABLET. PO PRN ×2 (01:03→23:52)
--- NOTE | 2019-11-25 01:11 | NUR ---
Pt awake and extremely manic. Pt refusing to stay in his room, walking up and down the hallway yelling. Pt picking up his walker and lifting it as if he is lifting weights. Pt manically writing in his journal and became upset and yelled at this RN when I couldn't read his journal note. The journal stated Noy Charlton and the date he was hired with the [employer]. Attempted to administer repeat Trazodone to pt x3 and each time pt took the med cup and dumped the medication on the floor. Pt stated to this RN that he would lay down if I would go to bed with him. 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 Pt yelling "[employer] Agent Matteo Muñiz reporting!" Will continue to monitor. Addendum: 11/25/19 at 0148 by NIURKA WHITEHEAD RN Pt has been wandering unit. Pt went back to his room where he proceeded to tear apart his bed and attempt to lay on the floor. Pt informed that he cannot lay on the floor as he is up and down all night and he could potentially trip over the mattress on the floor. Attempted to have pt stand up and take him to the [facility]. Pt extremely combative. Staff x4 assisted pt to [facility] for de-escalation. Pt now yelling out "not too bad for an 80 year old, huh?" Pt continues to make statements about the [employer].
[2019-11-25 05:03] VITALS: BP 142/75
[2019-11-25] MEDS: LEVOTHYROXINE 25 MCG TABLET. PO SCH (05:03)
[2019-11-25] MEDS: risperiDONE 0.5 MG TABLET. PO SCH ×2 (08:02→20:43)
[2019-11-25] MEDS: DIVALPROEX ER 500 MG TAB.ER.24H PO SCH (08:02)
--- NOTE | 2019-11-25 09:53 | PDOC ---
Exam Note: Quoc Note: This note is a late entry for 11/24/2019 covers elements not covered in my initial note. Subjective: The patient was seen individually in the evening of 11/24/2019. Per Gin NELSON, he slept 2 hours previous night. 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 Review of Systems: Ambulation impaired with walker. No CV, , pulmonary, eye system symptoms on review. Mental Status Exam: The patient is oriented to himself and situation. Speech has some latency, somewhat pressured at times. Abstraction is fair. Computation impaired. Attention span is short. Language function is intact. Mood and affect remains labile, anxious. Laboratory Data: Reviewed. Impression: Bipolar disorder, manic with psychotic features. Anxiety disorder unspecified. Impulse control disorder unspecified. Mild cognitive impairment. Plan: The patients lithium has been changed to Depakote due to his low GFR. We will follow labs level and adjust as clinically indicated. Continue rest of the psychotropics. Start trazodone 100 mg h.s. p.r.n. May repeat 50 mg p.r.n. insomnia. Rest unchanged. Assessment: Vital Signs/I&O: Vital Signs Date Time Temp Pulse Resp B/P (MAP) Pulse Ox O2 Delivery O2 Flow Rate FiO2 11/25/19 05:03 98.1 95 20 142/75 (97) 96 11/21/19 15:50 Room Air I & O 11/24/19 11/24/19 11/25/19 15:00 23:00 07:00 Intake Total 960 ml 600 ml Balance 960 ml 600 ml Current Medications: Meds: Current Medications Medications (Trade) Dose Ordered Sig/Ki Route PRN Reason Start Time Stop Time Status Last Admin Dose Admin Trazodone HCl (Desyrel) 100 mg PRN QHS PRN PO INSOMNIA, use first 11/24/19 16:30 11/24/19 20:40 I have reviewed the current psychotropics carefully including drug interactions. Risk benefit ratio favors no change other than as noted in my dictated progress note. Diagnosis: Problems: (1) Bipolar disorder, curr episode mixed, severe, with psychotic features (2) Impulse control disorder, unspecified (3) Mild cognitive impairment (4) Anxiety disorder, unspecified (5) Bipolar disorder, current episode manic severe with psychotic features WAN SEO MD Nov 25, 2019 09:53
[2019-11-25] MEDS ORDERED: MELATONIN 3 MG TABLET PO PRN (16:30)
[2019-11-25 16:43] VITALS: BP 132/81
--- NOTE | 2019-11-25 18:26 | NUR ---
Patient is alert, oriented to place, self and time. Pt is however manic. While RN on the phone this afternoon, pt was repeatedly banging on the window. Pt thought that SW was an packaging sales and wanted the nurse to have her look at his hearing aids. Pt is compliant with medications. Pt is also taking trash paper bags out of other patients rooms and hoarding them so that he can garden later. RN had to remove 2 bags from patients hands that had trash in them. Pt didn't understand this, wanted to keep them because he was going to keep trash in them. RN informed him that there is a trash can in day room for him to throw trash him and that he wasn't going to keep trash bags with dirty tissues in them. Pt walked away mad. RAOUL.
[2019-11-25] MEDS: traZODone 100 MG TABLET. PO PRN (20:43)
--- NOTE | 2019-11-25 22:17 | PDOC ---
Exam Note: Quoc Note: Please also refer to the separate dictated note~for this date of service dictated separately.~Patient seen individually. Discussed the patient with Nursing staff reviewed the chart.~Reviewed interim history and current functioning. Reviewed vital signs,~Labs/ Radiology~and current medications noted below. Continue current treatment with the changes noted in the dictated addendum note Assessment: Vital Signs/I&O: Vital Signs Date Time Temp Pulse Resp B/P (MAP) Pulse Ox O2 Delivery O2 Flow Rate FiO2 11/25/19 16:43 97.8 97 20 132/81 (98) 95 11/21/19 15:50 Room Air I & O 11/24/19 11/24/19 11/25/19 14:59 22:59 06:59 Intake Total 960 ml 600 ml Balance 960 ml 600 ml Current Medications: Meds: Current Medications Medications (Trade) Dose Ordered Sig/Ki Route PRN Reason Start Time Stop Time Status Last Admin Dose Admin Melatonin (Melatonin) 3 mg PRN QHS PRN PO INSOMNIA 11/25/19 16:30 11/25/19 20:43 I have reviewed the current psychotropics carefully including drug interactions. Risk benefit ratio favors no change other than as noted in my dictated progress note. Diagnosis: Problems: (1) Bipolar disorder, curr episode mixed, severe, with psychotic features (2) Impulse control disorder, unspecified (3) Mild cognitive impairment (4) Anxiety disorder, unspecified (5) Bipolar disorder, current episode manic severe with psychotic features WAN SEO MD Nov 25, 2019 22:17
--- NOTE | 2019-11-25 23:34 | NUR ---
Pt restless this evening, pacing the unit back and forth into the dayroom. Pt salutes staff members as he walks by them. Pt stated that he was tired from working all day. Pt stated that he had a contractual agreement with [employer] to complete the [facility] project today. Pt found on the floor multiple times doing crunches, stating that he has to complete his 4000 crunches/ day. Compliant with whole medications. PRN Trazodone and Melatonin administered with HS medications.
[2019-11-26] MEDS: LEVOTHYROXINE 25 MCG TABLET. PO SCH (05:08)
[2019-11-26 05:34] VITALS: BP 142/75
--- NOTE | 2019-11-26 07:24 | PDOC ---
Exam Note: Quoc Note: This note is a late entry for 11/25/2019 covers elements not covered in my initial note. Subjective: The patient was seen individually in the evening of 11/25/2019. Per Ant NELSON, he slept 2-3/4 hours previous night. He has had hypergraphia writing page after page in handwritten notes, stealing things from trash cans saying that he has to go and find a job. 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 Discussed with Savanna Wilkins, social service staff that I was unable to contact Dr. Philippe over the weekend but we have changed the lithium to Depakote and if Dr. Philippe would like to talk to me my cell phone number could be shared with Dr. Philippe, patients outpatient psychiatrist. Review of Systems: Ambulation impaired with walker. No CV, , pulmonary, eye system symptoms on review. Mental Status Exam: The patient is oriented to himself and situation. He is very hyperverbal, grandiose. Speech has some latency, somewhat pressured at times. Abstraction is fair. Computation impaired. Attention span is short. Language function is intact. Mood and affect remains labile as I met with him. No suicidal or homicidal ideation. Laboratory Data: Reviewed. Impression: Bipolar disorder, manic with psychotic features. Anxiety disorder unspecified. Impulse control disorder unspecified. Mild cognitive impairment. Plan: Continue psychotropics from initial note. Adjust Depakote to reach therapeutic level. Assessment: Vital Signs/I&O: Vital Signs Date Time Temp Pulse Resp B/P (MAP) Pulse Ox O2 Delivery O2 Flow Rate FiO2 11/26/19 05:34 97.3 84 18 142/75 (97) 98 11/21/19 15:50 Room Air I & O 11/25/19 11/25/19 11/26/19 15:00 23:00 07:00 Intake Total 840 ml 240 ml 360 ml Balance 840 ml 240 ml 360 ml Current Medications: Meds: Current Medications Medications (Trade) Dose Ordered Sig/Ki Route PRN Reason Start Time Stop Time Status Last Admin Dose Admin Melatonin (Melatonin) 3 mg PRN QHS PRN PO INSOMNIA 11/25/19 16:30 11/25/19 20:43 I have reviewed the current psychotropics carefully including drug interactions. Risk benefit ratio favors no change other than as noted in my dictated progress note. Diagnosis: Problems: (1) Bipolar disorder, curr episode mixed, severe, with psychotic features (2) Impulse control disorder, unspecified (3) Mild cognitive impairment (4) Anxiety disorder, unspecified (5) Bipolar disorder, current episode manic severe with psychotic features WAN SEO MD Nov 26, 2019 07:24
[2019-11-26] MEDS: DIVALPROEX ER 500 MG TAB.ER.24H PO SCH (08:19)
[2019-11-26] MEDS: risperiDONE 0.5 MG TABLET. PO SCH ×2 (08:19→19:53)
[2019-11-26 15:37] VITALS: BP 144/79
--- NOTE | 2019-11-26 18:15 | NUR ---
Patient has been writing notes on paper and sending them into nurses station. On one note, pt it appears that patient is requesting to be dismissed so that he can keep working on his garden plans outside of the patio. Pt also gave RN plans to give to director of planning for a new garden measuring 100ft by 100ft. Pt was talking to another patient during breakfast. These two patients feed off of each other, RN suggested to patient that he sit somewhere else so that his behaviors remain good. Pt did move to another area. Pt was overheard by mmd unit teacher telling another patient that the BROADCAST DIRECTOR OPERATIONS was the most beautiful person that he had seen all day. Pt is now requesting gloves and a manicure.
[2019-11-26] MEDS: traZODone 100 MG TABLET. PO PRN (19:53)
--- NOTE | 2019-11-26 22:06 | PDOC ---
Exam Note: Quoc Note: Please also refer to the separate dictated note~for this date of service dictated separately.~Patient seen individually. Discussed the patient with Nursing staff reviewed the chart.~Reviewed interim history and current functioning. Reviewed vital signs,~Labs/ Radiology~and current medications noted below. Continue current treatment with the changes noted in the dictated addendum note Assessment: Vital Signs/I&O: Vital Signs Date Time Temp Pulse Resp B/P (MAP) Pulse Ox O2 Delivery O2 Flow Rate FiO2 11/26/19 15:37 98.4 83 16 144/79 (100) 98 Room Air I & O 11/25/19 11/25/19 11/26/19 15:00 23:00 07:00 Intake Total 840 ml 240 ml 360 ml Balance 840 ml 240 ml 360 ml Current Medications: I have reviewed the current psychotropics carefully including drug interactions. Risk benefit ratio favors no change other than as noted in my dictated progress note. Diagnosis: Problems: (1) Bipolar disorder, curr episode mixed, severe, with psychotic features (2) Impulse control disorder, unspecified (3) Mild cognitive impairment (4) Anxiety disorder, unspecified (5) Bipolar disorder, current episode manic severe with psychotic features WAN SEO MD Nov 26, 2019 22:06
[2019-11-26] MEDS: traZODone 50 MG TABLET. PO PRN (22:07)
--- NOTE | 2019-11-26 23:08 | NUR ---
On assessment sitting on couch in dayroom visiting with other pts. Pt is pleasant and compliant with this RN. Pt shows RN his hand and said, "Do you know what this writing says?" This RN said no, pt then stated that he saw a well dressed isaura, the most beautiful lady he has seen. Pt then asks if this RN knew Savanna, the GRAPHIC TECHNICIAN, that she was this isaura. Pt restless in room, telling this RN that he did not know how to sleep. Pt wanted to log his sleep himself in his journal, notified pt that the journal has in his locker for the night and he could have it back in the am. Assisted pt back to bed multiple times. PRN Trazodone given as ordered x2.
[2019-11-27] MEDS: LEVOTHYROXINE 25 MCG TABLET. PO SCH (05:10)
[2019-11-27 05:32] VITALS: BP 138/72
[2019-11-27 06:29] LABS: BASO % 0 % (0-3); EOS # 0.1 x10^3/uL (0.0-0.7); EOS % 1 % (0-3); HEMOGLOBIN 13.1 g/dL (13.0-17.5); LYMPH # 0.9 x10^3/uL (1.0-4.8); LYMPH % 8 % (24-48); MEAN CORPUSCULAR HEMOGLOBIN 31 pg (25-35); MEAN CORPUSCULAR HGB CONC 33 g/dL (31-37); MEAN CORPUSCULAR VOLUME 95 fL (79-100); MONO # 0.5 x10^3/uL (0.0-1.1); MONO % 5 % (0-9); NEUT # 9.4 x10^3uL (1.8-7.7); NEUT % 86 % (31-73); PLATELET COUNT 276 x10^3/uL (140-400); RED BLOOD COUNT 4.22 x10^6/uL (4.30-5.70); RED CELL DISTRIBUTION WIDTH 13.2 % (11.5-14.5); WHITE BLOOD COUNT 10.8 x10^3/uL (4.0-11.0)
[2019-11-27 06:42] LABS: ALBUMIN/GLOBULIN RATIO 0.8 (1.0-1.7); ALK PHOS 80 U/L (46-116); ALT (SGPT) 24 U/L (16-63); ANION GAP 9 (6-14); AST (SGOT) 15 U/L (15-37); BLOOD UREA NITROGEN 17 mg/dL (8-26); BUN/CREATININE RATIO 10 (6-20); CARBON DIOXIDE 24 mmol/L (21-32); CHLORIDE 106 mmol/L (98-107); CREATININE 1.7 mg/dL (0.7-1.3); GFR 39.1; GLUCOSE 110 mg/dL (70-99); SODIUM 139 mmol/L (136-145); TOTAL BILIRUBIN 0.3 mg/dL (0.2-1.0); TOTAL PROTEIN 6.8 g/dL (6.4-8.2)
[2019-11-27 06:43] LABS: VAL ACID 37 mcg/mL (50-100)
--- NOTE | 2019-11-27 07:04 | PDOC ---
Exam Note: Quoc Note: This note is a late entry for 11/26/2019 covers elements not covered in my initial note. Subjective: The patient was seen individually in the evening of 11/26/2019. Per Ant NELSON, he slept 2-3/4 hours previous night. 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 He instigates other patients asking them not to take their medications and other things. I processed this with him. He was quite grandiose, hyperverbal as I met with him. Review of Systems: Ambulation impaired with walker. No CV, , pulmonary, eye system symptoms on review. Mental Status Exam: The patient is oriented to himself and situation. He is very hyperverbal, grandiose. Speech has some latency, somewhat pressured at times. Abstraction is fair. Computation impaired. Attention span is short. Language function is intact. Mood and affect remains labile. No suicidal or homicidal ideation. Laboratory Data: Reviewed. Impression: Bipolar disorder, manic with psychotic features. Anxiety disorder unspecified. Impulse control disorder unspecified. Mild cognitive impairment. Plan: Continue psychotropics from initial note. Valproic acid level will be checked 11/26. Adjust Depakote thereafter to reach therapeutic level. [place] has been stopped. Maintain Risperdal along with Zyprexa p.r.n., trazodone p.r.n., melatonin 3 mg h.s. Assessment: Vital Signs/I&O: Vital Signs Date Time Temp Pulse Resp B/P (MAP) Pulse Ox O2 Delivery O2 Flow Rate FiO2 11/27/19 05:32 98.3 87 18 138/72 (94) 96 Room Air I & O 11/26/19 11/26/19 11/27/19 15:00 23:00 07:00 Intake Total 1080 ml 840 ml Balance 1080 ml 840 ml Labs: Laboratory Tests Test 11/27/19 06:02 White Blood Count 10.8 x10^3/uL (4.0-11.0) Red Blood Count 4.22 x10^6/uL (4.30-5.70) L Hemoglobin 13.1 g/dL (13.0-17.5) Hematocrit 40.0 % (39.0-53.0) Mean Corpuscular Volume 95 fL (79-100) Mean Corpuscular Hemoglobin 31 pg (25-35) Mean Corpuscular Hemoglobin Concent 33 g/dL (31-37) Red Cell Distribution Width 13.2 % (11.5-14.5) Platelet Count 276 x10^3/uL (140-400) Neutrophils (%) (Auto) 86 % (31-73) H Lymphocytes (%) (Auto) 8 % (24-48) L Monocytes (%) (Auto) 5 % (0-9) Eosinophils (%) (Auto) 1 % (0-3) Basophils (%) (Auto) 0 % (0-3) Neutrophils # (Auto) 9.4 x10^3uL (1.8-7.7) H Lymphocytes # (Auto) 0.9 x10^3/uL (1.0-4.8) L Monocytes # (Auto) 0.5 x10^3/uL (0.0-1.1) Eosinophils # (Auto) 0.1 x10^3/uL (0.0-0.7) Basophils # (Auto) 0.0 x10^3/uL (0.0-0.2) Sodium Level 139 mmol/L (136-145) Potassium Level 4.0 mmol/L (3.5-5.1) Chloride Level 106 mmol/L (98-107) Carbon Dioxide Level 24 mmol/L (21-32) Anion Gap 9 (6-14) Blood Urea Nitrogen 17 mg/dL (8-26) Creatinine 1.7 mg/dL (0.7-1.3) H Estimated GFR (Cockcroft-Gault) 39.1 BUN/Creatinine Ratio 10 (6-20) Glucose Level 110 mg/dL (70-99) H Calcium Level 9.0 mg/dL (8.5-10.1) Total Bilirubin 0.3 mg/dL (0.2-1.0) Aspartate Amino Transferase (AST) 15 U/L (15-37) Alanine Aminotransferase (ALT) 24 U/L (16-63) Alkaline Phosphatase 80 U/L (46-116) Ammonia < 10 mcmol/L (11-34) L Total Protein 6.8 g/dL (6.4-8.2) Albumin 3.0 g/dL (3.4-5.0) L Albumin/Globulin Ratio 0.8 (1.0-1.7) L Valproic Acid Level 37 mcg/mL (50-100) L Valproic Acid Last Dose Date 11/26/2019 Valproic Acid Last Dose Time 0900 Current Medications: I have reviewed the current psychotropics carefully including drug interactions. Risk benefit ratio favors no change other than as noted in my dictated progress note. Diagnosis: Problems: (1) Bipolar disorder, curr episode mixed, severe, with psychotic features (2) Impulse control disorder, unspecified (3) Mild cognitive impairment (4) Anxiety disorder, unspecified (5) Bipolar disorder, current episode manic severe with psychotic features WAN SEO MD Nov 27, 2019 07:04
[2019-11-27] MEDS: risperiDONE 0.5 MG TABLET. PO SCH ×2 (07:38→19:57)
[2019-11-27] MEDS: DIVALPROEX ER 500 MG TAB.ER.24H PO SCH (07:39)
--- NOTE | 2019-11-27 13:56 | NUR ---
NURSING NOTE PT WAS IN HALLWAY THIS AM UPON ASSESSMENT AND MEDICATION ADMINISTRATION. PT WAS A&O X4 THIS AM. PT TOOK MEDS WHOLE WITH NO COMPLICATIONS. PT DOES STILL HAVE A COUGH. PT DECLINED ANY PAIN. PT DECLINES ANY SI THOUGHTS OR HALLUCINATIONS AT THIS TIME. PT WAS VERY ACTIVE IN PARTICIPATING IN GROUP TODAY. PT IS CALM AND COOPERATIVE THUS FAR. PT ASKING SEVERAL TIMES ABOUT MICHELLE RG IN HER "PRETTY SKIRT". PT ASKED SEVERAL TIMES ABOUT PERSONAL LIFE AND QUESTIONS, REDIRECTED EASILY. PT ALSO WANTING HIS NOTEBOOK TO WRITE IN. PT WAS GIVEN NOTEBOOK AFTER LUNCH FOR SHORT PERIOD OF TIME. LAWNCARE WAS OUTSIDE MOWING, PT STATES "I ORDERED HIM TO MOW THAT GRASS". PT DID NOT SLEEP LAST NIGHT PER REPORT. WILL CONTINUE TO MONITOR. LESLIE MARTINO.
--- NOTE | 2019-11-27 14:34 | NUR ---
Matteo has attended both recreational therapy groups this date with full participation. He continues to be hyperverbal and become tearful several times during conversation. Matteo was agreeable to complete MMSE and scored 26/30. He continues to be grandiose sharing lots of stories. SW had lengthy phone conversation with Patrick, /POA, on 11/26/19. Patrick is uncertain that she will be able to continue to manage Matteo in their home. She is meeting with an commercial litigation attorney about their finances and assets. Patrick will be involved in team meeting via phone on 11/28/19.
[2019-11-27 16:48] VITALS: BP 157/80
[2019-11-27] MEDS: traZODone 100 MG TABLET. PO PRN (19:57)
--- NOTE | 2019-11-27 20:00 | NUR ---
Pt is sitting up in chair in the dayroom on assessment. Pt is calm and interactive with staff. Pt compliant with medications whole. Denies complaints at this time.
[2019-11-27] MEDS ORDERED: DIVALPROEX ER 500 MG TAB.ER.24H PO ONE (21:00)
--- NOTE | 2019-11-27 22:16 | PDOC ---
Exam Note: Quoc Note: Please also refer to the separate dictated note~for this date of service dictated separately.~Patient seen individually. Discussed the patient with Nursing staff reviewed the chart.~Reviewed interim history and current functioning. Reviewed vital signs,~Labs/ Radiology~and current medications noted below. Continue current treatment with the changes noted in the dictated addendum note Assessment: Vital Signs/I&O: Vital Signs Date Time Temp Pulse Resp B/P (MAP) Pulse Ox O2 Delivery O2 Flow Rate FiO2 11/27/19 16:48 97.3 86 18 157/80 (105) 98 11/27/19 05:32 Room Air I & O 11/26/19 11/26/19 11/27/19 15:00 23:00 07:00 Intake Total 1080 ml 840 ml Balance 1080 ml 840 ml Labs: Laboratory Tests Test 11/27/19 06:02 White Blood Count 10.8 x10^3/uL (4.0-11.0) Red Blood Count 4.22 x10^6/uL (4.30-5.70) L Hemoglobin 13.1 g/dL (13.0-17.5) Hematocrit 40.0 % (39.0-53.0) Mean Corpuscular Volume 95 fL (79-100) Mean Corpuscular Hemoglobin 31 pg (25-35) Mean Corpuscular Hemoglobin Concent 33 g/dL (31-37) Red Cell Distribution Width 13.2 % (11.5-14.5) Platelet Count 276 x10^3/uL (140-400) Neutrophils (%) (Auto) 86 % (31-73) H Lymphocytes (%) (Auto) 8 % (24-48) L Monocytes (%) (Auto) 5 % (0-9) Eosinophils (%) (Auto) 1 % (0-3) Basophils (%) (Auto) 0 % (0-3) Neutrophils # (Auto) 9.4 x10^3uL (1.8-7.7) H Lymphocytes # (Auto) 0.9 x10^3/uL (1.0-4.8) L Monocytes # (Auto) 0.5 x10^3/uL (0.0-1.1) Eosinophils # (Auto) 0.1 x10^3/uL (0.0-0.7) Basophils # (Auto) 0.0 x10^3/uL (0.0-0.2) Sodium Level 139 mmol/L (136-145) Potassium Level 4.0 mmol/L (3.5-5.1) Chloride Level 106 mmol/L (98-107) Carbon Dioxide Level 24 mmol/L (21-32) Anion Gap 9 (6-14) Blood Urea Nitrogen 17 mg/dL (8-26) Creatinine 1.7 mg/dL (0.7-1.3) H Estimated GFR (Cockcroft-Gault) 39.1 BUN/Creatinine Ratio 10 (6-20) Glucose Level 110 mg/dL (70-99) H Calcium Level 9.0 mg/dL (8.5-10.1) Total Bilirubin 0.3 mg/dL (0.2-1.0) Aspartate Amino Transferase (AST) 15 U/L (15-37) Alanine Aminotransferase (ALT) 24 U/L (16-63) Alkaline Phosphatase 80 U/L (46-116) Ammonia < 10 mcmol/L (11-34) L Total Protein 6.8 g/dL (6.4-8.2) Albumin 3.0 g/dL (3.4-5.0) L Albumin/Globulin Ratio 0.8 (1.0-1.7) L Valproic Acid Level 37 mcg/mL (50-100) L Valproic Acid Last Dose Date 11/26/2019 Valproic Acid Last Dose Time 0900 Current Medications: Meds: Current Medications Medications (Trade) Dose Ordered Sig/Ki Route PRN Reason Start Time Stop Time Status Last Admin Dose Admin Divalproex Sodium (Depakote Er) 500 mg 1X ONCE PO 11/27/19 21:00 11/27/19 21:01 DC 11/27/19 19:57 I have reviewed the current psychotropics carefully including drug interactions. Risk benefit ratio favors no change other than as noted in my dictated progress note. Diagnosis: Problems: (1) Impulse control disorder, unspecified (2) Mild cognitive impairment (3) Anxiety disorder, unspecified (4) Bipolar disorder, current episode manic severe with psychotic features WAN SEO MD Nov 27, 2019 22:16
--- NOTE | 2019-11-27 22:39 | NUR ---
Pt put self on the floor in doorway to his room. Pt reports the he feels like he will lose his hips, he needs a CAT scan. Pt reports that he need to warm his hips up. Pt proceed to scoot around the room and then out into the hallway. Pt notified that it was unsafe to lay in the middle of the helton, and that he needs to get up. Pt states that he is unable to get up before his hips warm up 10 more degrees. Pt assisted up with x3 assist, and taken to the shower. Pt states the shower will warm his hip right up.
[2019-11-28] MEDS: LEVOTHYROXINE 25 MCG TABLET. PO SCH (05:32)
[2019-11-28 05:36] VITALS: BP 145/76
--- NOTE | 2019-11-28 07:20 | PDOC ---
Exam Note: Quoc Note: This note is a late entry for 11/27/2019 covers elements not covered in my initial note. Subjective: The patient was seen individually in the evening of 11/27/2019. Per Florencia RN, he slept just 1 hour previous night. He remains quite grandiose, irritable, labile, hit stuck a star on his forehead. He was joking about it, at times somewhat flirtatious with female nursing staff, talking about one of the administration female staff members would come on the unit and how pretty she was and her dress. He does redirect when socially inappropriate comments are pointed out to him. Valproic acid level is 37 on Depakote ER 500 mg a day. Review of Systems: Ambulation impaired with walker. No CV, , pulmonary, eye system symptoms on review. Mental Status Exam: The patient is reasonably oriented. Speech is coherent, rapid at times. Abstraction is fair. Computation impaired. Attention span is short. Language function is intact. Mood and affect remains grandiose, labile. Laboratory Data: Reviewed. Impression: Bipolar disorder, manic with psychotic features. Anxiety disorder unspecified. Impulse control disorder unspecified. Mild cognitive impairment. Plan: The patients valproic acid level is 37 subtherapeutic on Depakote ER 500 mg a day. We will change this to Depakote ER 1000 mg h.s. to help somewhat with insomnia. Check CBC, CMP, valproic acid level, ammonia level in 3 days. Rest unchanged from initial note. Assessment: Vital Signs/I&O: Vital Signs Date Time Temp Pulse Resp B/P (MAP) Pulse Ox O2 Delivery O2 Flow Rate FiO2 11/28/19 05:36 97.9 87 18 145/76 (99) 96 Room Air I & O 11/27/19 11/27/19 11/28/19 15:00 23:00 07:00 Intake Total 600 ml 480 ml Balance 600 ml 480 ml Current Medications: Meds: Current Medications Medications (Trade) Dose Ordered Sig/Ki Route PRN Reason Start Time Stop Time Status Last Admin Dose Admin Divalproex Sodium (Depakote Er) 500 mg 1X ONCE PO 11/27/19 21:00 11/27/19 21:01 DC 11/27/19 19:57 I have reviewed the current psychotropics carefully including drug interactions. Risk benefit ratio favors no change other than as noted in my dictated progress note. Diagnosis: Problems: (1) Impulse control disorder, unspecified (2) Mild cognitive impairment (3) Anxiety disorder, unspecified (4) Bipolar disorder, current episode manic severe with psychotic features WAN SEO MD Nov 28, 2019 07:20
[2019-11-28] MEDS: risperiDONE 0.5 MG TABLET. PO SCH ×2 (07:49→20:32)
--- NOTE | 2019-11-28 08:59 | NUR ---
Patient is calm and cooperative. Patient has no complaints this morning.
--- NOTE | 2019-11-28 10:41 | NUR ---
WEEKLY ACTIVITY THERAPY NOTE Date of Admission: 11/20/19 Date of AT Assessment: 11/22/19 Precipitating behaviors that initiated intake and admission: manic, lying in driveway, yelling at family, hearing voices,delusional, moving from 1 subject to another rapidly, paranoid, racing thoughts, insomnia. Goal aimed: to increase focus/attention Initial Goal: Pt. will participate in at least three Activity Therapy groups, fully, per week. 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
--- NOTE | 2019-11-28 11:16 | TX PLAN ---
Interdisciplinary Tx Plan Admission Information Nov 20, 2019 at 14:42 Legal Status (on Admission): Voluntary, DPOA DPOA/Guardian Name: Patrick Muñiz-spouse/POA Contact Other Contact Name: Patrick Other Contact Verified Code Status: Full Code Allergies: Coded Allergies: prednisolone (Verified Allergy, Mild, 11/20/19) Estimated Length of Stay: 14 Diagnoses Primary Diagnosis: Bipolar mixed with psychotic features Reasons for Admission: Delusions, Agitated, Sig. Change Sleep, Angry, Suspicious/paranoid, Poor impulse control Problem in Patient's Words: Per Matteo, this is my "fifth manic episode." Additional Admission Comments: Per intake, hearing voices, delusional, manic, psychotic, agitated, yelling at family, labile mood, racing thoughts, paranoid, insomnia, and laying out in hot driveway. Problems Active Problems: Manic Grandiose Not sleeping Inactive Problems: Medication complaint Pt Strengths/Limitations Ability for [place]: Fair Cognitive Functioning/Ability: Fair Communication Skills/Ability: Fair Financial Resources: Fair Insight/Judgement: Fair Intellectual Ability: Good Physical Health: Fair Social Skills: Fair Stability in Family: Fair Verbal Skills: Good Discharge Criteria Discharge Criteria: Adequate arrangements @DC, Adequate self-care, Improved behavior, Improved mood/thought Preliminary Discharge Plan Preliminary DC Plan: Home Special Precautions Fall Risk: High Initial D/C Plan Home with once stable Identified Discharge Needs: Follow up with PCP and psychiatrist Currently Utilized Resources Currently Utilized Resources/P: PCP, psychiatry, counseling prn Identified Problems/Hx/Goals Objectives/Short-Term Goals Short Term Goals: Control abnormal behavior, Dec. Hallucination/Delus, Medication Stabilization, Monitor Med Effects, Promote Coping Skill Short Term Goals in Patient's: Per Matteo, "Anything my wants, she wants me to get better." Interventions/Frequency Staff Interventions/Frequency&: Nursing to provide routine checks, medication administration, and adl support. Psychiatry visit 3-5 times weekly. SW visits twice weekly. Recreational and SW groups as Matteo will participate. 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 Matteo also worked in the [employer] industry. Social: Matteo enjoys exercising, volunteer work, episcopalian involvement, and camping. Education: Matteo graduated high school and obtained a BA in economics. Community Follow-up PCP, psychiatry, counseling prn Treatment Plan Explained Patient/Population Health Manager had this treatment plan explained to him/her as indicated by the signature below and has been given the opportunity to ask questions and make suggestions: Date: Patient/Population Health Manager Signature: Status Update Update WEEKLY UPDATE/NOTE: Matteo is averaging 75% of meal intakes and three hours of sleep at night. Matteo is manic, delusional, demanding, and not sleeping well. He is fixated on landscaping and lawn care. Matteo has been fully involved in most of the groups with a tendency to be easily distracted and in need of re-direction at times. [place] has been discontinued and Depakote has been initiated. MMSE score of 26/30. Will request further cognitive testing from Dr. Bolton. Almaterra, /POA, participated in team meeting via phone. SW will follow up with Patrick about preferences for discharge location. MICHELLE ART Nov 28, 2019 11:16
--- NOTE | 2019-11-28 13:20 | NUR ---
Dr. Bolton will complete cognitive testing with Matteo on 12/06/19, awaiting time.
[2019-11-28 15:37] VITALS: BP 157/77
--- NOTE | 2019-11-28 20:30 | NUR ---
Pt in room during assessment. Pt calm and compliant with assessment and medications whole.
[2019-11-28] MEDS: DIVALPROEX ER 500 MG TAB.ER.24H PO SCH (20:32)
[2019-11-28] MEDS: traZODone 100 MG TABLET. PO PRN (21:16)
--- NOTE | 2019-11-28 22:06 | PDOC ---
Exam Note: Quoc Note: Please also refer to the separate dictated note~for this date of service dictated separately.~Patient seen individually. Discussed the patient with Nursing staff reviewed the chart.~Reviewed interim history and current functioning. Reviewed vital signs,~Labs/ Radiology~and current medications noted below. Continue current treatment with the changes noted in the dictated addendum note Assessment: Vital Signs/I&O: Vital Signs Date Time Temp Pulse Resp B/P (MAP) Pulse Ox O2 Delivery O2 Flow Rate FiO2 11/28/19 15:37 98.7 103 20 157/77 (103) 95 11/28/19 05:36 Room Air I & O 11/27/19 11/27/19 11/28/19 15:00 23:00 07:00 Intake Total 600 ml 480 ml Balance 600 ml 480 ml Current Medications: Meds: Current Medications Medications (Trade) Dose Ordered Sig/Ki Route PRN Reason Start Time Stop Time Status Last Admin Dose Admin Divalproex Sodium (Depakote Er) 1,000 mg QHS PO 11/28/19 21:00 11/28/19 20:32 I have reviewed the current psychotropics carefully including drug interactions. Risk benefit ratio favors no change other than as noted in my dictated progress note. Diagnosis: Problems: (1) Impulse control disorder, unspecified (2) Mild cognitive impairment (3) Anxiety disorder, unspecified (4) Bipolar disorder, current episode manic severe with psychotic features WAN SEO MD Nov 28, 2019 22:06
[2019-11-28] MEDS: OLANZapine 5 MG TABLET PO PRN (22:40)
[2019-11-28] MEDS: traZODone 50 MG TABLET. PO PRN (22:40)
--- NOTE | 2019-11-28 22:54 | NUR ---
Pt restless and wandering into other pts rooms. Pt trying to find someone to count his crunches. Pt keeps laying himself on the floor and then yelling that the ground is to cold for his hips. Pt assisted to the secure hallway. Pt given PRN ttrazodone as ordered. Pt in hallway doing his drills and yelling out commands. Pt shouting at staff that we need to count his crunches and that we promised he could start at nine o'clock. Pt yells that he could get his friend to do the counting for him. Reminded pt that all the other pts are currently in bed and would be unable to assist him. Attempted to redirect pt. Pt continue to pace the helton yelling. PRN Trazodone and Zyprexa given as ordered Pt said he would do his crunches in bed. Pt encouraged to go lay down in bed in quiet room to get some rest. Pt refused and stated that 210 was his room. Pt states that his room has be anointed my god and he would only sleep in that room. Pt promised that if he could go to his room that he would stay in there and not disturb the other pts. Pt ambulated to back to his room, with stand by assist. Will continue to monitor.
--- NOTE | 2019-11-29 00:05 | NUR ---
Pt restless and attempting to wander. Pt is intrusive with another pt. Pt following female pt back into her room refusing to leave. When attempting to redirect pt, pt attempts to swing at staff. Pt assisted x4 to quiet [place] for deescalation.
[2019-11-29 05:16] VITALS: BP 123/79
[2019-11-29] MEDS: LEVOTHYROXINE 25 MCG TABLET. PO SCH (06:10)
[2019-11-29] MEDS: risperiDONE 0.5 MG TABLET. PO SCH (07:55)
[2019-11-29] MEDS: OLANZapine 5 MG TABLET PO PRN (07:57)
[2019-11-29 16:00] VITALS: BP 106/56
--- NOTE | 2019-11-29 16:26 | NUR ---
Pt up for meals and out to day room. Has been compliant with meds and cares. Has been hyperverbal at times. Was attempting to make announcements at lunch. Was telling table mates he was recently diagnosed with PTSD. Pt found propelling self in a peers wc. Pt stated he was in one for six months after B knee surgery. Pt was running over others in the way. Pt removed from wc.
[2019-11-29] MEDS: DIVALPROEX ER 500 MG TAB.ER.24H PO SCH (20:34)
[2019-11-29] MEDS: traZODone 100 MG TABLET. PO PRN (20:35)
[2019-11-29] MEDS: risperiDONE 1 MG TABLET. PO SCH (20:35)
--- NOTE | 2019-11-29 22:15 | PDOC ---
Exam Note: Quoc Note: Please also refer to the separate dictated note~for this date of service dictated separately.~Patient seen individually. Discussed the patient with Nursing staff reviewed the chart.~Reviewed interim history and current functioning. Reviewed vital signs,~Labs/ Radiology~and current medications noted below. Continue current treatment with the changes noted in the dictated addendum note Assessment: Vital Signs/I&O: Vital Signs Date Time Temp Pulse Resp B/P (MAP) Pulse Ox O2 Delivery O2 Flow Rate FiO2 11/29/19 16:00 98.1 69 16 106/56 (73) 96 11/28/19 05:36 Room Air I & O 11/28/19 11/28/19 11/29/19 15:00 23:00 07:00 Intake Total 720 ml 240 ml Balance 720 ml 240 ml Current Medications: Meds: Current Medications Medications (Trade) Dose Ordered Sig/Ki Route PRN Reason Start Time Stop Time Status Last Admin Dose Admin Risperidone (RisperDAL) 1 mg QHS PO 11/29/19 21:00 11/29/19 20:35 I have reviewed the current psychotropics carefully including drug interactions. Risk benefit ratio favors no change other than as noted in my dictated progress note. Diagnosis: Problems: (1) Impulse control disorder, unspecified (2) Mild cognitive impairment (3) Anxiety disorder, unspecified (4) Bipolar disorder, current episode manic severe with psychotic features WAN SEO MD Nov 29, 2019 22:15
--- NOTE | 2019-11-29 23:59 | NUR ---
Patient is in the day room on assumption of care. He is calm, cooperative and compliant with assessments and medications. Interactive and appropriate with peers and staff. No agitation. Denies any pain or discomfort. Denies SI. Appears to be sleeping comfortably at present time. Will continue to monitor.
[2019-11-30] MEDS: LEVOTHYROXINE 25 MCG TABLET. PO SCH (05:28)
[2019-11-30 05:39] VITALS: BP 155/88
--- NOTE | 2019-11-30 07:39 | PDOC ---
Exam Note: Quoc Note: This note is a late entry for 11/28/2019 covers elements not covered in my initial note. Subjective: The patient was seen individually in the morning of 11/28/2019 with treatment team meeting with Mima Greenfield RN (social service staff), [facility] staff. The patients Martina attended the lengthy treatment team meeting. He slept 2-3 hours previous night. Appetite is 75%. He remains somewhat manic, delusional, puts himself on the floor. He makes somewhat inappropriate sexual comments to female nursing staff but then redirects. He did attend some groups. He talked at length individually as I met with him about the bernardo gardens he has planted and how he has won national competitions and [employer]. On the mini-mental status exam he scored 26/30. He continues to be writing extensive notes every day leaving for me and social service staff and nursing staff. Discussed with Lio NELSON in the evening. The patient remains social butterfly. I also returned a call from Dr. Philippe, patients outpatient psychiatrist and had discussion about the patients diagnoses, change in treatment from lithium to Depakote as a mood stabilizer given his creatinine clearance in the low 40s. Dr. Philippe was agreeable to this. Review of Systems: Ambulation impaired with walker. No CV, , pulmonary, eye system symptoms on review. Mental Status Exam: The patient is reasonably oriented. He is quite manic, hyperverbal, distractible. Speech is coherent, rapid at times. Abstraction is fair. Computation impaired. Attention span is short. Language function is intact. Mood and affect remains manic. No suicidal or homicidal ideation. Laboratory Data: Reviewed. Impression: Bipolar disorder, manic with psychotic features. Anxiety disorder unspecified. Impulse control disorder unspecified. Mild cognitive impairment. Plan: No change from initial note. Check valproic acid level on 11/29 and adjust Depakote to reach therapeutic level. Continue Risperdal along with Zyprexa p.r.n., trazodone and melatonin. Assessment: Vital Signs/I&O: Vital Signs Date Time Temp Pulse Resp B/P (MAP) Pulse Ox O2 Delivery O2 Flow Rate FiO2 11/30/19 05:39 98.1 84 18 155/88 (110) 97 Room Air I & O 11/29/19 11/29/19 11/30/19 15:00 23:00 07:00 Intake Total 960 ml 0 ml 480 ml Balance 960 ml 0 ml 480 ml Current Medications: Meds: Current Medications Medications (Trade) Dose Ordered Sig/Ki Route PRN Reason Start Time Stop Time Status Last Admin Dose Admin Risperidone (RisperDAL) 1 mg QHS PO 11/29/19 21:00 11/29/19 20:35 I have reviewed the current psychotropics carefully including drug interactions. Risk benefit ratio favors no change other than as noted in my dictated progress note. Diagnosis: Problems: (1) Impulse control disorder, unspecified (2) Mild cognitive impairment (3) Anxiety disorder, unspecified (4) Bipolar disorder, current episode manic severe with psychotic features WAN SEO MD Nov 30, 2019 07:39
[2019-11-30] MEDS: OLANZapine 5 MG TABLET PO PRN (08:04)
[2019-11-30] MEDS: risperiDONE 0.5 MG TABLET. PO SCH (08:04)
--- NOTE | 2019-11-30 08:09 | PDOC ---
Exam Note: Quoc Note: This note is a late entry for 11/29/2019 covers elements not covered in my initial note. Subjective: The patient was seen individually in the evening of 11/29/2019. Per Katarina NELSON, he did not sleep at all but just 1 hour previous night. He has had a very difficult night. He was agitated, manic, grandiose, had to be placed in the West hallway. He then climbed up several feet on a glass partition the West hallway from the nursing station and climbed on to the desk on the nursing station. He is quite dramatic. He remains hyperverbal, anxious. Review of Systems: Ambulation impaired with walker. No CV, , pulmonary, eye system symptoms on review. Mental Status Exam: The patient is reasonably oriented. Speech is coherent, rapid at times. Abstraction is fair. Computation impaired. Attention span is short. Language function is intact. Mood and affect remains hyperverbal, anxious with marked mood lability. No suicidal or homicidal ideation. Laboratory Data: Reviewed. Impression: Bipolar disorder, manic with psychotic features. Anxiety disorder unspecified. Impulse control disorder unspecified. Mild cognitive impairment. Plan: Rest unchanged from initial note. Increase Risperdal from 0.5 mg b.i.d. to 0.5 mg a.m. and 1 mg h.s. Continue Depakote and check labs level in the morning. Adjust to reach therapeutic level. Assessment: Vital Signs/I&O: Vital Signs Date Time Temp Pulse Resp B/P (MAP) Pulse Ox O2 Delivery O2 Flow Rate FiO2 11/30/19 05:39 98.1 84 18 155/88 (110) 97 Room Air I & O 11/29/19 11/29/19 11/30/19 15:00 23:00 07:00 Intake Total 960 ml 0 ml 480 ml Balance 960 ml 0 ml 480 ml Current Medications: Meds: Current Medications Medications (Trade) Dose Ordered Sig/Ki Route PRN Reason Start Time Stop Time Status Last Admin Dose Admin Risperidone (RisperDAL) 0.5 mg DAILY PO 11/30/19 09:00 11/30/19 08:04 Risperidone (RisperDAL) 1 mg QHS PO 11/29/19 21:00 11/29/19 20:35 I have reviewed the current psychotropics carefully including drug interactions. Risk benefit ratio favors no change other than as noted in my dictated progress note. Diagnosis: Problems: (1) Impulse control disorder, unspecified (2) Mild cognitive impairment (3) Anxiety disorder, unspecified (4) Bipolar disorder, current episode manic severe with psychotic features WAN SEO MD Nov 30, 2019 08:09
[2019-11-30 08:31] LABS: BASO % 1 % (0-3); EOS # 0.1 x10^3/uL (0.0-0.7); EOS % 2 % (0-3); HEMATOCRIT 34.3 % (39.0-53.0); HEMOGLOBIN 11.3 g/dL (13.0-17.5); LYMPH # 1.3 x10^3/uL (1.0-4.8); LYMPH % 23 % (24-48); MEAN CORPUSCULAR HEMOGLOBIN 31 pg (25-35); MEAN CORPUSCULAR HGB CONC 33 g/dL (31-37); MEAN CORPUSCULAR VOLUME 95 fL (79-100); MONO # 0.5 x10^3/uL (0.0-1.1); MONO % 9 % (0-9); NEUT # 3.7 x10^3uL (1.8-7.7); NEUT % 66 % (31-73); PLATELET COUNT 244 x10^3/uL (140-400); RED BLOOD COUNT 3.63 x10^6/uL (4.30-5.70); RED CELL DISTRIBUTION WIDTH 13.3 % (11.5-14.5); WHITE BLOOD COUNT 5.6 x10^3/uL (4.0-11.0)
[2019-11-30 08:38] LABS: ALBUMIN 2.4 g/dL (3.4-5.0); ALBUMIN/GLOBULIN RATIO 0.7 (1.0-1.7); ALK PHOS 62 U/L (46-116); ALT (SGPT) 20 U/L (16-63); ANION GAP 6 (6-14); AST (SGOT) 19 U/L (15-37); BLOOD UREA NITROGEN 16 mg/dL (8-26); BUN/CREATININE RATIO 9 (6-20); CALCIUM 8.5 mg/dL (8.5-10.1); CARBON DIOXIDE 26 mmol/L (21-32); CHLORIDE 107 mmol/L (98-107); CREATININE 1.7 mg/dL (0.7-1.3); GFR 39.1; GLUCOSE 97 mg/dL (70-99); SODIUM 139 mmol/L (136-145); TOTAL BILIRUBIN 0.2 mg/dL (0.2-1.0); TOTAL PROTEIN 5.7 g/dL (6.4-8.2)
[2019-11-30 08:46] LABS: VAL ACID 53 mcg/mL (50-100)
[2019-11-30 16:47] VITALS: BP 157/71
--- NOTE | 2019-11-30 16:51 | NUR ---
Pt hyperverbal today. Perseverating on having a show on stage for day and has invited all the pts and staff to particpate. Keeps asking staff to pain a sunflower and a pipe on his pinkie nails. Has been compliant with meds. Has been redirectable thus far.
[2019-11-30] MEDS: DIVALPROEX ER 500 MG TAB.ER.24H PO SCH (20:32)
[2019-11-30] MEDS: risperiDONE 1 MG TABLET. PO SCH (20:32)
--- NOTE | 2019-11-30 22:27 | PDOC ---
Exam Note: Quoc Note: Please also refer to the separate dictated note~for this date of service dictated separately.~Patient seen individually. Discussed the patient with Nursing staff reviewed the chart.~Reviewed interim history and current functioning. Reviewed vital signs,~Labs/ Radiology~and current medications noted below. Continue current treatment with the changes noted in the dictated addendum note Assessment: Vital Signs/I&O: Vital Signs Date Time Temp Pulse Resp B/P (MAP) Pulse Ox O2 Delivery O2 Flow Rate FiO2 11/30/19 16:47 97.9 90 18 157/71 (99) 96 Room Air I & O 11/29/19 11/29/19 11/30/19 15:00 23:00 07:00 Intake Total 960 ml 0 ml 480 ml Balance 960 ml 0 ml 480 ml Labs: Laboratory Tests Test 11/30/19 07:44 White Blood Count 5.6 x10^3/uL (4.0-11.0) Red Blood Count 3.63 x10^6/uL (4.30-5.70) L Hemoglobin 11.3 g/dL (13.0-17.5) L Hematocrit 34.3 % (39.0-53.0) L Mean Corpuscular Volume 95 fL (79-100) Mean Corpuscular Hemoglobin 31 pg (25-35) Mean Corpuscular Hemoglobin Concent 33 g/dL (31-37) Red Cell Distribution Width 13.3 % (11.5-14.5) Platelet Count 244 x10^3/uL (140-400) Neutrophils (%) (Auto) 66 % (31-73) Lymphocytes (%) (Auto) 23 % (24-48) L Monocytes (%) (Auto) 9 % (0-9) Eosinophils (%) (Auto) 2 % (0-3) Basophils (%) (Auto) 1 % (0-3) Neutrophils # (Auto) 3.7 x10^3uL (1.8-7.7) Lymphocytes # (Auto) 1.3 x10^3/uL (1.0-4.8) Monocytes # (Auto) 0.5 x10^3/uL (0.0-1.1) Eosinophils # (Auto) 0.1 x10^3/uL (0.0-0.7) Basophils # (Auto) 0.0 x10^3/uL (0.0-0.2) Sodium Level 139 mmol/L (136-145) Potassium Level 4.0 mmol/L (3.5-5.1) Chloride Level 107 mmol/L (98-107) Carbon Dioxide Level 26 mmol/L (21-32) Anion Gap 6 (6-14) Blood Urea Nitrogen 16 mg/dL (8-26) Creatinine 1.7 mg/dL (0.7-1.3) H Estimated GFR (Cockcroft-Gault) 39.1 BUN/Creatinine Ratio 9 (6-20) Glucose Level 97 mg/dL (70-99) Calcium Level 8.5 mg/dL (8.5-10.1) Total Bilirubin 0.2 mg/dL (0.2-1.0) Aspartate Amino Transferase (AST) 19 U/L (15-37) Alanine Aminotransferase (ALT) 20 U/L (16-63) Alkaline Phosphatase 62 U/L (46-116) Ammonia 13 mcmol/L (11-34) Total Protein 5.7 g/dL (6.4-8.2) L Albumin 2.4 g/dL (3.4-5.0) L Albumin/Globulin Ratio 0.7 (1.0-1.7) L Valproic Acid Level 53 mcg/mL (50-100) Valproic Acid Last Dose Date 11/29/19 Valproic Acid Last Dose Time 2100 Current Medications: Meds: Current Medications Medications (Trade) Dose Ordered Sig/Ki Route PRN Reason Start Time Stop Time Status Last Admin Dose Admin Risperidone (RisperDAL) 0.5 mg DAILY PO 11/30/19 09:00 11/30/19 08:04 I have reviewed the current psychotropics carefully including drug interactions. Risk benefit ratio favors no change other than as noted in my dictated progress note. Diagnosis: Problems: (1) Impulse control disorder, unspecified (2) Mild cognitive impairment (3) Anxiety disorder, unspecified (4) Bipolar disorder, current episode manic severe with psychotic features WAN SEO MD Nov 30, 2019 22:27
[2019-12-01] MEDS: LEVOTHYROXINE 25 MCG TABLET. PO SCH (04:59)
[2019-12-01 06:07] VITALS: BP 162/85
--- NOTE | 2019-12-01 07:35 | PDOC ---
Exam Note: Quoc Note: This note is a late entry for 11/30/2019 covers elements not covered in my initial note. Subjective: The patient was seen individually in the evening of 11/30/2019. Per Katarina NELSON, he slept 5-3/4 hours previous night. He was somewhat manic, grandiose, later more depressed, talking about wanting his nails painted and wants a Dayne and pipes drawn onto his nails. This is again reflective of his bipolar mood symptoms. Valproic acid level is therapeutic at 53. We will repeat on 12/02/19. Review of Systems: Ambulation impaired with walker. No CV, , pulmonary, eye, ENT, integumentary system symptoms on review. Mental Status Exam: Reasonably oriented. Speech is coherent. Abstraction is fair. Computation impaired. Attention span is short. Language function is intact. Mood and affect somewhat labile. He was quite anxious. He remains hyperverbal, other times almost tearful as I met with him. Laboratory Data: Reviewed. Impression: Bipolar disorder, manic with psychotic features. Anxiety disorder unspecified. Impulse control disorder unspecified. Mild cognitive impairment. Plan: Continue current psychotropics. Repeat valproic acid as noted above. Continue Risperdal current dosage, Zyprexa, melatonin for now. Assessment: Vital Signs/I&O: Vital Signs Date Time Temp Pulse Resp B/P (MAP) Pulse Ox O2 Delivery O2 Flow Rate FiO2 12/01/19 06:07 98.0 96 16 162/85 (110) 98 Room Air I & O 11/30/19 11/30/19 12/01/19 15:00 23:00 07:00 Intake Total 720 ml Balance 720 ml Labs: Laboratory Tests Test 11/30/19 07:44 White Blood Count 5.6 x10^3/uL (4.0-11.0) Red Blood Count 3.63 x10^6/uL (4.30-5.70) L Hemoglobin 11.3 g/dL (13.0-17.5) L Hematocrit 34.3 % (39.0-53.0) L Mean Corpuscular Volume 95 fL (79-100) Mean Corpuscular Hemoglobin 31 pg (25-35) Mean Corpuscular Hemoglobin Concent 33 g/dL (31-37) Red Cell Distribution Width 13.3 % (11.5-14.5) Platelet Count 244 x10^3/uL (140-400) Neutrophils (%) (Auto) 66 % (31-73) Lymphocytes (%) (Auto) 23 % (24-48) L Monocytes (%) (Auto) 9 % (0-9) Eosinophils (%) (Auto) 2 % (0-3) Basophils (%) (Auto) 1 % (0-3) Neutrophils # (Auto) 3.7 x10^3uL (1.8-7.7) Lymphocytes # (Auto) 1.3 x10^3/uL (1.0-4.8) Monocytes # (Auto) 0.5 x10^3/uL (0.0-1.1) Eosinophils # (Auto) 0.1 x10^3/uL (0.0-0.7) Basophils # (Auto) 0.0 x10^3/uL (0.0-0.2) Sodium Level 139 mmol/L (136-145) Potassium Level 4.0 mmol/L (3.5-5.1) Chloride Level 107 mmol/L (98-107) Carbon Dioxide Level 26 mmol/L (21-32) Anion Gap 6 (6-14) Blood Urea Nitrogen 16 mg/dL (8-26) Creatinine 1.7 mg/dL (0.7-1.3) H Estimated GFR (Cockcroft-Gault) 39.1 BUN/Creatinine Ratio 9 (6-20) Glucose Level 97 mg/dL (70-99) Calcium Level 8.5 mg/dL (8.5-10.1) Total Bilirubin 0.2 mg/dL (0.2-1.0) Aspartate Amino Transferase (AST) 19 U/L (15-37) Alanine Aminotransferase (ALT) 20 U/L (16-63) Alkaline Phosphatase 62 U/L (46-116) Ammonia 13 mcmol/L (11-34) Total Protein 5.7 g/dL (6.4-8.2) L Albumin 2.4 g/dL (3.4-5.0) L Albumin/Globulin Ratio 0.7 (1.0-1.7) L Valproic Acid Level 53 mcg/mL (50-100) Valproic Acid Last Dose Date 11/29/19 Valproic Acid Last Dose Time 2100 Current Medications: Meds: Current Medications Medications (Trade) Dose Ordered Sig/Ki Route PRN Reason Start Time Stop Time Status Last Admin Dose Admin Risperidone (RisperDAL) 0.5 mg DAILY PO 11/30/19 09:00 11/30/19 08:04 I have reviewed the current psychotropics carefully including drug interactions. Risk benefit ratio favors no change other than as noted in my dictated progress note. Diagnosis: Problems: (1) Impulse control disorder, unspecified (2) Mild cognitive impairment (3) Anxiety disorder, unspecified (4) Bipolar disorder, current episode manic severe with psychotic features WAN SEO MD Dec 01, 2019 07:35
[2019-12-01] MEDS: risperiDONE 0.5 MG TABLET. PO SCH (08:29)
[2019-12-01] MEDS: OLANZapine 5 MG TABLET PO PRN ×2 (08:29→20:25)
--- NOTE | 2019-12-01 12:30 | NUR ---
Pt was tearful at lunch. Pt came back to room. Met biology tutor in [place]. Asked her not to go in day room where she was about to mop as he felt something bad was going to happen to her. Slat Basket Maker Helper Machine left pt. Pt went in room and doused self with water, doused floor and covered floor with toilet paper. Pt believes the wax on the floor is going to spontaneously combust. Pt not redirectable. Will notify dr. ceja.
--- NOTE | 2019-12-01 12:45 | NUR ---
Pt given Haldol 5mg x1 po per order. Pt redirected back to [facility]. Pt asked for a mask and requested all staff use mask to prevent exposure to chlorine fumes from cleaning fluid.
[2019-12-01] MEDS ORDERED: HALOPERIDOL 5 MG TABLET PO ONE (13:15)
--- NOTE | 2019-12-01 13:30 | NUR ---
Pt starting to slow down. Pt intermittently resting in bed with eyes closed. Pt wearing mask provided.
[2019-12-01 15:38] VITALS: BP 168/92
--- NOTE | 2019-12-01 17:14 | NUR ---
Pt asked for pen and paper. Has been writing notes on it. Asking for numerous other items such as wash clothes, denture cream, a new water cup etc. Attempting to redirect to dinner table.
[2019-12-01] MEDS: DIVALPROEX ER 500 MG TAB.ER.24H PO SCH (20:23)
[2019-12-01] MEDS: risperiDONE 1 MG TABLET. PO SCH (20:24)
[2019-12-01] MEDS: traZODone 100 MG TABLET. PO PRN (20:24)
--- NOTE | 2019-12-01 22:05 | PDOC ---
Exam Note: Quoc Note: Please also refer to the separate dictated note~for this date of service dictated separately.~Patient seen individually. Discussed the patient with Nursing staff reviewed the chart.~Reviewed interim history and current functioning. Reviewed vital signs,~Labs/ Radiology~and current medications noted below. Continue current treatment with the changes noted in the dictated addendum note Assessment: Vital Signs/I&O: Vital Signs Date Time Temp Pulse Resp B/P (MAP) Pulse Ox O2 Delivery O2 Flow Rate FiO2 12/01/19 15:38 97.8 94 16 168/92 (117) 96 12/01/19 06:07 Room Air I & O 11/30/19 11/30/19 12/01/19 15:00 23:00 07:00 Intake Total 720 ml Balance 720 ml Current Medications: Meds: Current Medications Medications (Trade) Dose Ordered Sig/Ki Route PRN Reason Start Time Stop Time Status Last Admin Dose Admin Haloperidol (Haldol) 5 mg 1X ONCE PO 12/01/19 13:15 12/01/19 13:16 DC 12/01/19 13:11 I have reviewed the current psychotropics carefully including drug interactions. Risk benefit ratio favors no change other than as noted in my dictated progress note. Diagnosis: Problems: (1) Impulse control disorder, unspecified (2) Mild cognitive impairment (3) Anxiety disorder, unspecified (4) Bipolar disorder, current episode manic severe with psychotic features WAN SEO MD Dec 01, 2019 22:05
--- NOTE | 2019-12-01 23:40 | NUR ---
Patient is in his room on assumption of care. He is calm, cooperative and compliant with assessments and medications. Interactive and appropriate with peers and staff. No agitation. Denies any pain or discomfort. Denies SI. Appears to be sleeping comfortably at present time. Will continue to monitor.
[2019-12-02] MEDS: LEVOTHYROXINE 25 MCG TABLET. PO SCH (05:06)
[2019-12-02 06:18] VITALS: BP 125/66
[2019-12-02 06:53] LABS: VAL ACID 59 mcg/mL (50-100)
--- NOTE | 2019-12-02 07:46 | PDOC ---
Exam Note: Quoc Note: This note is a late entry for 12/01/2019 covers elements not covered in my initial note. Subjective: The patient was seen individually in the evening of 12/01/2019. Per Katarina NELSON, he slept 5 hours previous night. I was paged as an emergency earlier in the day. The patient was agitated, restless, anxious, very paranoid. We added one dose of Haldol 5 mg p.o. and he slept somewhat after that, less paranoid, still manic, talking about toxic chemicals that might kill people, agitated in the p.m. We will repeat valproic acid level tomorrow morning. He remains on Zyprexa 5 mg t.i.d. p.r.n. psychosis and agitation. Review of Systems: Ambulation impaired with walker. No CV, , pulmonary, eye, ENT, integumentary system symptoms on review. Mental Status Exam: Reasonably oriented. Speech is coherent, has some latency, pressured. Abstraction is fair. Computation impaired. Attention span is short. Language function is intact. He remains paranoid, suspicious, distractible. Laboratory Data: Reviewed. Impression: Bipolar 1 disorder, mixed with psychotic features. Anxiety disorder unspecified. Impulse control disorder unspecified. Plan: Continue current psychotropics. Risperdal is total 1.5 mg a day, Depakote ER 1000 mg h.s. Valproic acid level will be checked on 12/01. Adjust to reach a therapeutic level. Continue melatonin 3 mg h.s., trazodone p.r.n. Assessment: Vital Signs/I&O: Vital Signs Date Time Temp Pulse Resp B/P (MAP) Pulse Ox O2 Delivery O2 Flow Rate FiO2 12/02/19 06:18 98.4 78 16 125/66 (85) 97 Room Air I & O 12/01/19 12/01/19 12/02/19 15:00 23:00 07:00 Intake Total 720 ml 360 ml Balance 720 ml 360 ml Labs: Laboratory Tests Test 12/02/19 06:15 Valproic Acid Level 59 mcg/mL (50-100) Valproic Acid Last Dose Date 12/01/2019 Valproic Acid Last Dose Time 2100 Current Medications: Meds: Current Medications Medications (Trade) Dose Ordered Sig/Ki Route PRN Reason Start Time Stop Time Status Last Admin Dose Admin Haloperidol (Haldol) 5 mg 1X ONCE PO 12/01/19 13:15 12/01/19 13:16 DC 12/01/19 13:11 I have reviewed the current psychotropics carefully including drug interactions. Risk benefit ratio favors no change other than as noted in my dictated progress note. Diagnosis: Problems: (1) Bipolar disorder, curr episode mixed, severe, with psychotic features (2) Impulse control disorder, unspecified (3) Mild cognitive impairment (4) Anxiety disorder, unspecified WAN SEO MD Dec 02, 2019 07:46
[2019-12-02] MEDS: risperiDONE 0.5 MG TABLET. PO SCH (08:26)
[2019-12-02] MEDS: SCOPOLAMINE 1.5MG PATCH. TD SCH (13:30)
--- NOTE | 2019-12-02 15:38 | NUR ---
Patient is mostly calm, cooperative with meds. Is intrusive into other peoples business, has been instructed 3 times today that the he needs to worry about his own problems and quit getting involved into others. Pt has a habit of getting other patients riled up, for instance, another patient asked this nurse for a new brief, this nurse told the patient she would get one. This patient told the other patient that the nurse wouldn't get it. This patient likes to sit with 3 other patients and discuss staff and other patients. They feed off each other and get each other upset, these patients are now being during meal times. WCTM.
[2019-12-02 16:25] VITALS: BP 109/64
[2019-12-02] MEDS: risperiDONE 1 MG TABLET. PO SCH (20:37)
[2019-12-02] MEDS: traZODone 100 MG TABLET. PO PRN (20:37)
[2019-12-02] MEDS: DIVALPROEX ER 500 MG TAB.ER.24H PO SCH (20:38)
--- NOTE | 2019-12-02 21:54 | NUR ---
Pt sitting up in the dayroom eating a snack on assessmeny. Pt is pleasant and inactive with staff. Pt compliant with medications whole and assessment. Pt denies other complaints at this time.
--- NOTE | 2019-12-02 22:08 | PDOC ---
Exam Note: Quoc Note: Please also refer to the separate dictated note~for this date of service dictated separately.~Patient seen individually. Discussed the patient with Nursing staff reviewed the chart.~Reviewed interim history and current functioning. Reviewed vital signs,~Labs/ Radiology~and current medications noted below. Continue current treatment with the changes noted in the dictated addendum note Assessment: Vital Signs/I&O: Vital Signs Date Time Temp Pulse Resp B/P (MAP) Pulse Ox O2 Delivery O2 Flow Rate FiO2 12/02/19 16:25 97.1 81 16 109/64 (79) 96 12/02/19 06:18 Room Air I & O 12/01/19 12/01/19 12/02/19 15:00 23:00 07:00 Intake Total 720 ml 360 ml Balance 720 ml 360 ml Labs: Laboratory Tests Test 12/02/19 06:15 Valproic Acid Level 59 mcg/mL (50-100) Valproic Acid Last Dose Date 12/01/2019 Valproic Acid Last Dose Time 2100 Current Medications: Meds: Current Medications Medications (Trade) Dose Ordered Sig/Ki Route PRN Reason Start Time Stop Time Status Last Admin Dose Admin Scopolamine (Transderm-Scop) 1 patch Q3DAYS TD 12/02/19 13:30 12/02/19 13:30 I have reviewed the current psychotropics carefully including drug interactions. Risk benefit ratio favors no change other than as noted in my dictated progress note. Diagnosis: Problems: (1) Bipolar disorder, curr episode mixed, severe, with psychotic features (2) Impulse control disorder, unspecified (3) Mild cognitive impairment (4) Anxiety disorder, unspecified AWN SEO MD Dec 02, 2019 22:08
[2019-12-03] MEDS: traZODone 50 MG TABLET. PO PRN ×2 (00:44→22:50)
[2019-12-03] MEDS: LEVOTHYROXINE 25 MCG TABLET. PO SCH (05:02)
[2019-12-03 06:04] VITALS: BP 156/78
--- NOTE | 2019-12-03 07:37 | NUR ---
Patient continually coming to nurses station to ask for his hearing aides and dentures. When staff gets the hearing aides patient refusing to wear them because "a piece is missing" (the plastic earbud). He keeps announcing what time it is and how long until breakfast time to staff and everyone in the hallway. Patient arguing with nurse about his closet contents and is becoming agitated with staff about the hearing aides, he wants to look through all the things in his closet multiple times. He then wants all the belongings put into the patient belonging bag. 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 Patient is very forgetful and attention seeking this morning.
[2019-12-03] MEDS: risperiDONE 0.5 MG TABLET. PO SCH (08:25)
[2019-12-03] MEDS: OLANZapine 5 MG TABLET PO PRN (08:25)
--- NOTE | 2019-12-03 08:27 | NUR ---
Patient demanding and rude to staff in day room. He continues to state that he was in the [employer] and must eat in a hurry because he has to go. PRN zyprexa given for delusions/agitation per order. He is also accusing a peer of having "stole his glasses the first day he was here".
--- NOTE | 2019-12-03 10:44 | NUR ---
Patient continues to obsessively look for his glasses despite being told by multiple staff members that he did not bring them to the hospital. (the belongings paper in the chart was checked). Patient obsessing about a linen cart that is in the elevator lobby, saying that his glasses, hearing aides and dentures are on the cart. There is nothing on the cart. Patient has been told multiple times by several staff members that there is nothing on that cart. After breakfast, patient tired to take a peers glasses of his face stating that they were his. He was redirected to the hallway by staff. The PRN zyprexa given at 0830 was not effective.
--- NOTE | 2019-12-03 12:55 | NUR ---
Follow up call placed to Patrick, /POA, to inquire about status of legal affairs and d/c destination for once Matteo is stable. Patrick expressed that the collections attorney she left a message with has not called her back. She is hopeful that Matteo will stabilize and that he can return home and they can have continued discussions about their finances and division of property. Patrick expressed that she feels Matteo has been somewhat more logical on phone calls but still slips back into "fantasies." Patrick took phone numbers for several assisted living facilities in the [facility] to inquire about respite care and also took the contact information for the [facility]. Patrick will be involved in team meeting via phone on 12/05/19. Patrick indicated that Matteo has a new pair of eyeglasses for when he gets home and has dentures at home that need to be repaired or replaced. Matteo has his hearing aids on the unit.
[2019-12-03 16:15] VITALS: BP 127/63
[2019-12-03] MEDS: risperiDONE 1 MG TABLET. PO SCH (19:31)
[2019-12-03] MEDS: traZODone 100 MG TABLET. PO PRN (19:31)
[2019-12-03] MEDS: DIVALPROEX ER 500 MG TAB.ER.24H PO SCH (19:31)
--- NOTE | 2019-12-03 22:09 | PDOC ---
Exam Note: Quoc Note: Please also refer to the separate dictated note~for this date of service dictated separately.~Patient seen individually. Discussed the patient with Nursing staff reviewed the chart.~Reviewed interim history and current functioning. Reviewed vital signs,~Labs/ Radiology~and current medications noted below. Continue current treatment with the changes noted in the dictated addendum note Assessment: Vital Signs/I&O: Vital Signs Date Time Temp Pulse Resp B/P (MAP) Pulse Ox O2 Delivery O2 Flow Rate FiO2 12/03/19 16:15 97.9 92 19 127/63 (84) 98 Room Air I & O 12/02/19 12/02/19 12/03/19 15:00 23:00 07:00 Intake Total 960 ml 720 ml Balance 960 ml 720 ml Current Medications: I have reviewed the current psychotropics carefully including drug interactions. Risk benefit ratio favors no change other than as noted in my dictated progress note. Diagnosis: Problems: (1) Bipolar disorder, curr episode mixed, severe, with psychotic features (2) Impulse control disorder, unspecified (3) Mild cognitive impairment (4) Anxiety disorder, unspecified WAN SEO MD Dec 03, 2019 22:09
--- NOTE | 2019-12-03 22:28 | NUR ---
On assessment pt is sitting on bedside writing in journal. Pt remains obsessed with finding his glasses, denture and hearing aids. Pt is insisting that he is leaving tomorrow to go home. Pt is compliant with medications, but need directions to get pt to remain on task. Pt is pleasant with staff.
--- NOTE | 2019-12-03 22:54 | NUR ---
Pt restless and insisting that he is leaving tomorrow. Pt shouting down the helton at staff. When attempting to lock up journal for the night pt place self between staff and locker. Pt then accuses staff of putting the journal in their pants, demanding the staff member to be frisked. Attempted to redirect pt with little success. Made deal with pt that if we went through first two pages of questions that he would allow us to lock the journal up and lay back down. Pt asked questions like, "Did you find the card for my dump truck driver off highway that is taking me to [place] tomorrow", "Should I send my son in [place] a big steak.", "I need to write a check for my and one for me, i have not had hill in 40 yrs.", "Can i get this nail paint for my daughter." Reminded pt that these were all questions that could be dealt with when he went home. Pt demanding and short with staff, saying he hide things in the room we missed. Tech searched room, nothing found. Pt given PRN Trazodone given as ordered.
[2019-12-04 05:03] VITALS: BP 100/60
[2019-12-04] MEDS: LEVOTHYROXINE 25 MCG TABLET. PO SCH (05:17)
--- NOTE | 2019-12-04 07:30 | PDOC ---
Exam Note: Quoc Note: This note is a late entry for 12/02/2019 covers elements not covered in my initial note. Subjective: The patient was seen individually in the evening of 12/02/2019. Per Ant NELSON, he slept 5-1/4 hours previous night. He has been intrusive, grandiose. The day before he had been extremely paranoid, psychotic, wanting washed cloths to put on what he believed were cleaning material that were hazardous left on the floor by the cleaning lady. Valproic acid level is 59. He has been combative with cares at times, getting into other patients rooms and telling others not to take the medications at times but I addressed this with him individually. Review of Systems: Ambulation impaired with walker. No CV, , pulmonary, eye, ENT, integumentary system symptoms on review. Mental Status Exam: Reasonably oriented. Speech is coherent, has some latency, pressured. Abstraction is fair. Computation impaired. Attention span is short. Language function is intact. He remains paranoid, psychotic. Laboratory Data: Reviewed. Impression: Bipolar 1 disorder, mixed with psychotic features. Anxiety disorder unspecified. Impulse control disorder unspecified. Plan: Continue current psychotropics. We do have an option to increase the Depakote slightly if mood swings persist. Assessment: Vital Signs/I&O: Vital Signs Date Time Temp Pulse Resp B/P (MAP) Pulse Ox O2 Delivery O2 Flow Rate FiO2 12/04/19 05:03 99.0 70 18 100/60 (73) 96 12/03/19 16:15 Room Air I & O 12/03/19 12/03/19 12/04/19 15:00 23:00 07:00 Intake Total 480 ml 600 ml Balance 480 ml 600 ml Current Medications: I have reviewed the current psychotropics carefully including drug interactions. Risk benefit ratio favors no change other than as noted in my dictated progress note. Diagnosis: Problems: (1) Impulse control disorder, unspecified (2) Mild cognitive impairment (3) Anxiety disorder, unspecified (4) Bipolar disorder, current episode manic severe with psychotic features WAN SEO MD Dec 04, 2019 07:30
--- NOTE | 2019-12-04 08:11 | PDOC ---
Exam Note: Quoc Note: This note is a late entry for 12/03/2019 covers elements not covered in my initial note. Subjective: The patient was seen individually in the evening of 12/03/2019. Per Julia NELSON, he slept 5 hours previous night. In the morning he was fixated on his hearing aid and dentures and quite obsessive regarding his glasses and his closet. He remains somewhat delusional, paranoid stated he works for [employer] and has to go for meetings. Psyche testing will be done on 12/05 for diagnostic clarification but it does seem he has bipolar disorder, manic with psychotic features. Review of Systems: Ambulation impaired with walker. No CV, , pulmonary, eye, ENT, integumentary system symptoms on review. Mental Status Exam: Reasonably oriented. The patient was saluting me as I met with him. Speech is coherent. Abstraction is fair. Computation impaired. Attention span is short. Language function is intact. Mood and affect still somewhat grandiose, labile but better than before. Laboratory Data: Reviewed. Impression: Bipolar 1 disorder, mixed with psychotic features. Anxiety disorder unspecified. Impulse control disorder unspecified. Plan: Continue current psychotropics. Continue Risperdal, Depakote along with Zyprexa and trazodone p.r.n. Make further adjustments as clinically indicated. Assessment: Vital Signs/I&O: Vital Signs Date Time Temp Pulse Resp B/P (MAP) Pulse Ox O2 Delivery O2 Flow Rate FiO2 12/04/19 05:03 99.0 70 18 100/60 (73) 96 12/03/19 16:15 Room Air I & O 12/03/19 12/03/19 12/04/19 15:00 23:00 07:00 Intake Total 480 ml 600 ml Balance 480 ml 600 ml Current Medications: I have reviewed the current psychotropics carefully including drug interactions. Risk benefit ratio favors no change other than as noted in my dictated progress note. Diagnosis: Problems: (1) Impulse control disorder, unspecified (2) Mild cognitive impairment (3) Anxiety disorder, unspecified (4) Bipolar disorder, current episode manic severe with psychotic features WAN SEO MD Dec 04, 2019 08:11
[2019-12-04] MEDS: risperiDONE 0.5 MG TABLET. PO SCH (08:23)
--- NOTE | 2019-12-04 11:00 | NUR ---
Patient social at breakfast with table mate and staff. Patient making a lot of requests one at a time (ketchup, napkins, hot tea, cream and sugar) instead of grouping the requests. Patient is oriented x4 and calm and compliant at this time. He has been appropriate, denies hallucinations and delusions at this time.
--- NOTE | 2019-12-04 13:54 | NUR ---
Matteo accepted SW invite to recreational therapy group this afternoon in which they were utilizing music as therapy. Matteo was engaged in group and began going individually to each of his peers and requesting to dance. Matteo would dance and peers would stay seated. Matteo gives frequent compliments to female staff. 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 Matteo's will be involved in team meeting on 12/05/19 via phone.
[2019-12-04 16:08] VITALS: BP 158/70
[2019-12-04] MEDS: DIVALPROEX ER 500 MG TAB.ER.24H PO SCH (20:29)
[2019-12-04] MEDS: traZODone 100 MG TABLET. PO PRN (20:29)
[2019-12-04] MEDS: risperiDONE 1 MG TABLET. PO SCH (20:29)
--- NOTE | 2019-12-04 20:30 | NUR ---
On assessment pt is sitting up in the dayroom visiting with other pts. Pt is alert and oriented x4. Pt is calm and compliant with medication and assessment. Pt denies all other complaints at this time.
[2019-12-04] MEDS: traZODone 50 MG TABLET. PO PRN (22:46)
--- NOTE | 2019-12-04 22:57 | PDOC ---
Exam Note: Quoc Note: Please also refer to the separate dictated note~for this date of service dictated separately.~Patient seen individually. Discussed the patient with Nursing staff reviewed the chart.~Reviewed interim history and current functioning. Reviewed vital signs,~Labs/ Radiology~and current medications noted below. Continue current treatment with the changes noted in the dictated addendum note Assessment: Vital Signs/I&O: Vital Signs Date Time Temp Pulse Resp B/P (MAP) Pulse Ox O2 Delivery O2 Flow Rate FiO2 12/04/19 16:08 98.5 87 18 158/70 (99) 96 12/03/19 16:15 Room Air I & O 12/03/19 12/03/19 12/04/19 15:00 23:00 07:00 Intake Total 480 ml 600 ml Balance 480 ml 600 ml Current Medications: I have reviewed the current psychotropics carefully including drug interactions. Risk benefit ratio favors no change other than as noted in my dictated progress note. Diagnosis: Problems: (1) Bipolar disorder, curr episode mixed, severe, with psychotic features (2) Impulse control disorder, unspecified (3) Mild cognitive impairment (4) Anxiety disorder, unspecified (5) Bipolar disorder, current episode manic severe with psychotic features WAN SEO MD Dec 04, 2019 22:57
--- NOTE | 2019-12-04 23:06 | NUR ---
Pt is restless, demanding to see the logs. Pt wandering the halls, not staying out of other rooms. PRN trazodone given as ordered.
[2019-12-05] MEDS: LEVOTHYROXINE 25 MCG TABLET. PO SCH (04:48)
[2019-12-05 05:15] VITALS: BP 159/74
[2019-12-05] MEDS: risperiDONE 0.5 MG TABLET. PO SCH (08:49)
[2019-12-05] MEDS: SCOPOLAMINE 1.5MG PATCH. TD SCH (08:49)
--- NOTE | 2019-12-05 11:12 | NUR ---
WEEKLY ACTIVITY THERAPY NOTE Date of Admission: 11/20/19 Date of AT Assessment: 11/22/19 Precipitating behaviors that initiated intake and admission: manic, lying in driveway, yelling at family, hearing voices,delusional, moving from 1 subject to another rapidly, paranoid, racing thoughts, insomnia. Goal aimed: to increase focus/attention Initial Goal: Pt. will participate in at least three Activity Therapy groups, fully, per week. Weekly progress towards goal: 12/29 Group participation level: 4 full, 2 mod, 2 min Weekly highlights: really enjoyed dancing on Monday afternoon Behaviors observed: reports Pt. got into nurses station and at a different time he flooded his room and self over the weekend, restless, always moving, often front and center in groups and needs redirection, tried to get others engaged in groups Plan: change goal to: Pt. will participate in at least one Activity Therapy group per day Beneficial adaptations: work/productivity activities (garden)
--- NOTE | 2019-12-05 11:22 | TX PLAN ---
Interdisciplinary Tx Plan Admission Information Nov 20, 2019 at 14:42 Legal Status (on Admission): Voluntary, DPOA DPOA/Guardian Name: Patrick Muñiz-spouse/POA Contact Other Contact Name: Patrick Other Contact Verified Code Status: Full Code Allergies: Coded Allergies: prednisolone (Verified Allergy, Mild, 11/20/19) Estimated Length of Stay: 14 Diagnoses Primary Diagnosis: Bipolar mixed with psychotic features Reasons for Admission: Delusions, Agitated, Sig. Change Sleep, Angry, Suspicious/paranoid, Poor impulse control Problem in Patient's Words: Per Matteo, this is my "fifth manic episode." Additional Admission Comments: Per intake, hearing voices, delusional, manic, psychotic, agitated, yelling at family, labile mood, racing thoughts, paranoid, insomnia, and laying out in hot driveway. Problems Active Problems: Manic Grandiose Not sleeping Inactive Problems: Medication complaint Pt Strengths/Limitations Ability for [place]: Fair Cognitive Functioning/Ability: Fair Communication Skills/Ability: Fair Financial Resources: Fair Insight/Judgement: Fair Intellectual Ability: Good Physical Health: Fair Social Skills: Fair Stability in Family: Fair Verbal Skills: Good Discharge Criteria Discharge Criteria: Adequate arrangements @DC, Adequate self-care, Improved behavior, Improved mood/thought Preliminary Discharge Plan Preliminary DC Plan: Home Special Precautions Fall Risk: High Initial D/C Plan Home with once stable Identified Discharge Needs: Follow up with PCP and psychiatrist Currently Utilized Resources Currently Utilized Resources/P: PCP, psychiatry, counseling prn Identified Problems/Hx/Goals Objectives/Short-Term Goals Short Term Goals: Control abnormal behavior, Dec. Hallucination/Delus, Medication Stabilization, Monitor Med Effects, Promote Coping Skill Short Term Goals in Patient's: Per Matteo, "Anything my wants, she wants me to get better." Interventions/Frequency Staff Interventions/Frequency&: Nursing to provide routine checks, medication administration, and adl support. Psychiatry visit 3-5 times weekly. SW visits twice weekly. Recreational and SW groups as Matteo will participate. 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 Matteo also worked in the [employer] industry. Social: Matteo enjoys exercising, volunteer work, scientology involvement, and camping. Education: Matteo graduated high school and obtained a BA in economics. Community Follow-up PCP, psychiatry, counseling prn Treatment Plan Explained Patient/Financial Writer had this treatment plan explained to him/her as indicated by the signature below and has been given the opportunity to ask questions and make suggestions: Date: Patient/Financial Writer Signature: Status Update Update WEEKLY UPDATE/NOTE: Matteo is averaging 75% of meal intakes and five hours of sleep. He is compliant with nursing assessments and medication administration. Matteo is restless and tends to be on the go or move all the time. He can be demanding at times. He has been involved in group programming and is engaged often working to get his peers engaged. Matteo was delusional over the weekend and had placed water and toilet paper on his floor with the belief that the floor was going to combust. Matteo will have cognitive testing completed on 12/06/19. Patrick, /POA, participated in team meeting via phone and reported that she has checked in to the [facility] program which is currently not available due to Covid. Patrick is reaching out to [facility] this afternoon to determine if Matteo may be a candidate to go there for a short term stay upon d/c. Patrick also inquired about if the Depakote would be able to stabilize Matteo's psychosis/mood as historically lithium has worked the best for Matteo. Patrick expressed that she would rather see Matteo's mood stabilized and for him to be fully functional even if that meant he had side effects to his kidneys from the lithium. Patrick was informed that it would take a full 6-8 weeks to determine the effectiveness of the Depakote and that Dr. Martinez (community psychiatrist) could make that determination. Tentative d/c around 12/11/19. MICHELLE ART Dec 05, 2019 11:22
--- NOTE | 2019-12-05 11:37 | NUR ---
Patient is compliant with medications. At meals he makes many requests for condiments, drinks, straws, etc and encourages everyone at his table to do the same thing. Patient is usually cooperative with staff during the day. He can be hyperfocused on looking for his glasses, dentures and hearing aides at times and wants his closet opened several times per shift so he can "look at his things" because as he states, "they are my things". Patient oriented x4 and yet remains delusional. He is attention seeking, wandering from N to S nurses station stating he is in the [employer] and has been assigned to go outside and work on the concrete and flower gardens. This nurse has asked him several times where he is and why he is here. He consistently able to state that he is at [facility] and he is here for "eliseo". At breakfast patient stood up and announced that we would be singing Happy Birthday to Bhavesh Lundy and Jj Ladd. He stated he would sing the first verse and then others should join in on the second verse. Patient spends time in the day room and in his room, is very social with the female peers and is a self proclaimed expert about [facility], introduces himself to all new patients and offers to "show them the ropes".
--- NOTE | 2019-12-05 12:33 | NUR ---
Patient was observed chewing his food and spitting it into a cup, Patient has no teeth and no dentures present. Nurse changed diet to dysphagia 2, ground meat. Kitchen notified after lunch and [facility].
--- NOTE | 2019-12-05 14:37 | NUR ---
Patient has removed both of the mattresses in his room from the beds and put them on the floor. He has pushed the chair across the room and states he is looking for his hearing aides. Patient is not redirectible and is insisting that nurse come into room to look under the side rails. Nurse looked under the rails, behind the bed and where the chairs had been. Patient is still insisting that they are lost.
[2019-12-05 15:37] VITALS: BP 142/56
[2019-12-05] MEDS: risperiDONE 1 MG TABLET. PO SCH (20:27)
[2019-12-05] MEDS: DIVALPROEX ER 500 MG TAB.ER.24H PO SCH (20:27)
--- NOTE | 2019-12-05 22:06 | PDOC ---
Exam Note: Quoc Note: Please also refer to the separate dictated note~for this date of service dictated separately.~Patient seen individually. Discussed the patient with Nursing staff reviewed the chart.~Reviewed interim history and current functioning. Reviewed vital signs,~Labs/ Radiology~and current medications noted below. Continue current treatment with the changes noted in the dictated addendum note Assessment: Vital Signs/I&O: Vital Signs Date Time Temp Pulse Resp B/P (MAP) Pulse Ox O2 Delivery O2 Flow Rate FiO2 12/05/19 15:37 98.2 79 18 142/56 (84) 94 12/03/19 16:15 Room Air I & O 12/04/19 12/04/19 12/05/19 15:00 23:00 07:00 Intake Total 960 ml 360 ml 240 ml Balance 960 ml 360 ml 240 ml Current Medications: I have reviewed the current psychotropics carefully including drug interactions. Risk benefit ratio favors no change other than as noted in my dictated progress note. Diagnosis: Problems: (1) Impulse control disorder, unspecified (2) Mild cognitive impairment (3) Anxiety disorder, unspecified (4) Bipolar disorder, current episode manic severe with psychotic features WAN SEO MD Dec 05, 2019 22:06
[2019-12-06] MEDS: traZODone 100 MG TABLET. PO PRN ×2 (00:02→19:41)
--- NOTE | 2019-12-06 01:05 | NUR ---
Nursing Note Pt in and out of his room on and off. Argues at length about his time in and how much time he still has how much time will he be credited for etc. Gets angry that he has to go to his room and wants to argue with all male staff. Very irritable and manic this pm. Trazodone given this HS.
[2019-12-06] MEDS: LEVOTHYROXINE 25 MCG TABLET. PO SCH ×2 (05:29→05:33)
--- NOTE | 2019-12-06 05:29 | NUR ---
Nursing Note Pt up and awake intermittently this PM, pt is intrusive and demanding. Finally fell asleep this am and is not waking up to take his synthroid dose. Pt had awakened and obsessively shaved multiple times in the night.
--- NOTE | 2019-12-06 05:32 | NUR ---
Nursing not Pt now awake and willing to take his meds.
[2019-12-06 06:16] VITALS: BP 134/70
[2019-12-06 06:46] LABS: BASO % 1 % (0-3); EOS # 0.2 x10^3/uL (0.0-0.7); EOS % 4 % (0-3); HEMOGLOBIN 12.2 g/dL (13.0-17.5); LYMPH # 0.7 x10^3/uL (1.0-4.8); LYMPH % 13 % (24-48); MEAN CORPUSCULAR HEMOGLOBIN 32 pg (25-35); MEAN CORPUSCULAR HGB CONC 33 g/dL (31-37); MEAN CORPUSCULAR VOLUME 95 fL (79-100); MONO # 0.8 x10^3/uL (0.0-1.1); MONO % 15 % (0-9); NEUT # 3.5 x10^3uL (1.8-7.7); NEUT % 68 % (31-73); PLATELET COUNT 197 x10^3/uL (140-400); RED BLOOD COUNT 3.88 x10^6/uL (4.30-5.70); RED CELL DISTRIBUTION WIDTH 13.2 % (11.5-14.5); WHITE BLOOD COUNT 5.2 x10^3/uL (4.0-11.0)
--- NOTE | 2019-12-06 07:14 | PDOC ---
Exam Note: Quoc Note: This note is a late entry for 12/04/2019 covers elements not covered in my initial note. Subjective: The patient was seen individually in the evening of 12/04/2019. Per Julia NELSON, he slept 3-3/4 hours previous night. He has had a better day. He remains somewhat paranoid, suspicious. He likes to look in his closet and feels reassured when he finds his things. He felt previous night he was taken to nursing home. Review of Systems: Ambulation impaired with walker. No CV, , pulmonary, eye, ENT system symptoms on review. Mental Status Exam: He is alert and oriented x4. Speech is coherent. Abstraction is fair. Computation impaired. Attention span is short. Language function is intact. Mood and affect still somewhat paranoid. Laboratory Data: Reviewed. Impression: Bipolar 1 disorder, mixed with psychotic features. Anxiety disorder unspecified. Impulse control disorder unspecified. Plan: Valproic acid level is therapeutic. Continue Risperdal, trazodone, and Klonopin at current dosage. Make further adjustments as clinically indicated. Assessment: Vital Signs/I&O: Vital Signs Date Time Temp Pulse Resp B/P (MAP) Pulse Ox O2 Delivery O2 Flow Rate FiO2 12/06/19 06:16 98.3 85 18 134/70 (91) 96 12/03/19 16:15 Room Air I & O 12/05/19 12/05/19 12/06/19 15:00 23:00 07:00 Intake Total 720 ml 480 ml Balance 720 ml 480 ml Labs: Laboratory Tests Test 12/06/19 06:17 White Blood Count 5.2 x10^3/uL (4.0-11.0) Red Blood Count 3.88 x10^6/uL (4.30-5.70) L Hemoglobin 12.2 g/dL (13.0-17.5) L Hematocrit 37.0 % (39.0-53.0) L Mean Corpuscular Volume 95 fL (79-100) Mean Corpuscular Hemoglobin 32 pg (25-35) Mean Corpuscular Hemoglobin Concent 33 g/dL (31-37) Red Cell Distribution Width 13.2 % (11.5-14.5) Platelet Count 197 x10^3/uL (140-400) Neutrophils (%) (Auto) 68 % (31-73) Lymphocytes (%) (Auto) 13 % (24-48) L Monocytes (%) (Auto) 15 % (0-9) H Eosinophils (%) (Auto) 4 % (0-3) H Basophils (%) (Auto) 1 % (0-3) Neutrophils # (Auto) 3.5 x10^3uL (1.8-7.7) Lymphocytes # (Auto) 0.7 x10^3/uL (1.0-4.8) L Monocytes # (Auto) 0.8 x10^3/uL (0.0-1.1) Eosinophils # (Auto) 0.2 x10^3/uL (0.0-0.7) Basophils # (Auto) 0.0 x10^3/uL (0.0-0.2) Current Medications: I have reviewed the current psychotropics carefully including drug interactions. Risk benefit ratio favors no change other than as noted in my dictated progress note. Diagnosis: Problems: (1) Bipolar disorder, curr episode mixed, severe, with psychotic features (2) Impulse control disorder, unspecified (3) Mild cognitive impairment (4) Anxiety disorder, unspecified (5) Bipolar disorder, current episode manic severe with psychotic features WAN SEO MD Dec 06, 2019 07:14
[2019-12-06 07:25] LABS: ALBUMIN 2.5 g/dL (3.4-5.0); ALBUMIN/GLOBULIN RATIO 0.7 (1.0-1.7); CALCIUM 8.7 mg/dL (8.5-10.1); CREATININE 1.7 mg/dL (0.7-1.3); GFR 39.1; POTASSIUM 4.5 mmol/L (3.5-5.1); TOTAL BILIRUBIN 0.2 mg/dL (0.2-1.0); TOTAL PROTEIN 6.2 g/dL (6.4-8.2)
--- NOTE | 2019-12-06 07:40 | PDOC ---
Exam Note: Quoc Note: This note is a late entry for 12/05/2019 covers elements not covered in my initial note. Subjective: The patient was seen individually in the morning of 12/05/2019 with treatment team meeting with Mima (social service staff), Graciela Activity [facility] staff, Gin NELSON. The patients Sylvain also attended. I had a lengthy discussion about his diagnoses, grandiosity which is slightly improving over the last day or so. Sleeping 5 hours average. Appetite is 75%. He is compliant with meds, has been restless, demanding at times. shared with us his history where he would become quite restless at home, moving the furniture. Couple of nights back and over the weekend he was quite paranoid on the unit stating the cleaning supplies that were left were poisoned and was going to blow up. I discussed with Julia NELSON in the evening. He has been telling others that he is in the [employer]. He was singing Happy Birthday to others. He gets confused. He was dancing in Activity Therapy groups the day before. He has some bizarre behaviors at times walking around the unit with towel on his head. Review of Systems: Ambulation impaired with walker. No CV, , pulmonary, eye, ENT system symptoms on review. Mental Status Exam: Reasonably oriented. Speech is coherent. Abstraction is fair. Computation impaired. Attention span is short. Language function is intact. Mood and affect grandiosity improved, somewhat paranoid. Laboratory Data: Reviewed. Impression: Bipolar 1 disorder, mixed with psychotic features. Anxiety disorder unspecified. Impulse control disorder unspecified. Plan: Continue current psychotropics per initial note. Assessment: Vital Signs/I&O: Vital Signs Date Time Temp Pulse Resp B/P (MAP) Pulse Ox O2 Delivery O2 Flow Rate FiO2 12/06/19 06:16 98.3 85 18 134/70 (91) 96 12/03/19 16:15 Room Air I & O 12/05/19 12/05/19 12/06/19 15:00 23:00 07:00 Intake Total 720 ml 480 ml Balance 720 ml 480 ml Labs: Laboratory Tests Test 12/06/19 06:17 12/06/19 06:30 White Blood Count 5.2 x10^3/uL (4.0-11.0) Red Blood Count 3.88 x10^6/uL (4.30-5.70) L Hemoglobin 12.2 g/dL (13.0-17.5) L Hematocrit 37.0 % (39.0-53.0) L Mean Corpuscular Volume 95 fL (79-100) Mean Corpuscular Hemoglobin 32 pg (25-35) Mean Corpuscular Hemoglobin Concent 33 g/dL (31-37) Red Cell Distribution Width 13.2 % (11.5-14.5) Platelet Count 197 x10^3/uL (140-400) Neutrophils (%) (Auto) 68 % (31-73) Lymphocytes (%) (Auto) 13 % (24-48) L Monocytes (%) (Auto) 15 % (0-9) H Eosinophils (%) (Auto) 4 % (0-3) H Basophils (%) (Auto) 1 % (0-3) Neutrophils # (Auto) 3.5 x10^3uL (1.8-7.7) Lymphocytes # (Auto) 0.7 x10^3/uL (1.0-4.8) L Monocytes # (Auto) 0.8 x10^3/uL (0.0-1.1) Eosinophils # (Auto) 0.2 x10^3/uL (0.0-0.7) Basophils # (Auto) 0.0 x10^3/uL (0.0-0.2) Sodium Level 140 mmol/L (136-145) Potassium Level 4.5 mmol/L (3.5-5.1) Chloride Level 106 mmol/L (98-107) Carbon Dioxide Level 28 mmol/L (21-32) Anion Gap 6 (6-14) Blood Urea Nitrogen 15 mg/dL (8-26) Creatinine 1.7 mg/dL (0.7-1.3) H Estimated GFR (Cockcroft-Gault) 39.1 BUN/Creatinine Ratio 9 (6-20) Glucose Level 101 mg/dL (70-99) H Calcium Level 8.7 mg/dL (8.5-10.1) Total Bilirubin 0.2 mg/dL (0.2-1.0) Aspartate Amino Transferase (AST) 15 U/L (15-37) Alanine Aminotransferase (ALT) 18 U/L (16-63) Alkaline Phosphatase 65 U/L (46-116) Total Protein 6.2 g/dL (6.4-8.2) L Albumin 2.5 g/dL (3.4-5.0) L Albumin/Globulin Ratio 0.7 (1.0-1.7) L Current Medications: I have reviewed the current psychotropics carefully including drug interactions. Risk benefit ratio favors no change other than as noted in my dictated progress note. Diagnosis: Problems: (1) Impulse control disorder, unspecified (2) Mild cognitive impairment (3) Anxiety disorder, unspecified (4) Bipolar disorder, current episode manic severe with psychotic features WAN SEO MD Dec 06, 2019 07:40
[2019-12-06] MEDS: risperiDONE 0.5 MG TABLET. PO SCH (08:21)
--- NOTE | 2019-12-06 09:10 | NUR ---
Matteo met with Dr. Rg on 12/05/19 and completed cognitive testing. Cognitive testing left in Dr. King's box for review. Met with Matteo this morning who reported he felt the appointment went well. He was complimentary of Dr. Rg. 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
[2019-12-06 15:39] VITALS: BP 172/77
[2019-12-06] MEDS: DIVALPROEX ER 500 MG TAB.ER.24H PO SCH (19:40)
[2019-12-06] MEDS: MELATONIN 3 MG TABLET PO SCH ×2 (19:41→21:00)
[2019-12-06] MEDS: risperiDONE 1 MG TABLET. PO SCH (19:41)
[2019-12-06] MEDS ORDERED: MELATONIN 3 MG TABLET PO SCH (21:00)
[2019-12-06] MEDS ORDERED: MELATONIN 3 MG TABLET PO PRN (21:00)
--- NOTE | 2019-12-06 22:01 | PDOC ---
Exam Note: Quoc Note: Please also refer to the separate dictated note~for this date of service dictated separately.~Patient seen individually. Discussed the patient with Nursing staff reviewed the chart.~Reviewed interim history and current functioning. Reviewed vital signs,~Labs/ Radiology~and current medications noted below. Continue current treatment with the changes noted in the dictated addendum note Assessment: Vital Signs/I&O: Vital Signs Date Time Temp Pulse Resp B/P (MAP) Pulse Ox O2 Delivery O2 Flow Rate FiO2 12/06/19 15:39 98.1 84 18 172/77 (108) 96 Room Air I & O 12/05/19 12/05/19 12/06/19 15:00 23:00 07:00 Intake Total 720 ml 480 ml Balance 720 ml 480 ml Labs: Laboratory Tests Test 12/06/19 06:17 12/06/19 06:30 White Blood Count 5.2 x10^3/uL (4.0-11.0) Red Blood Count 3.88 x10^6/uL (4.30-5.70) L Hemoglobin 12.2 g/dL (13.0-17.5) L Hematocrit 37.0 % (39.0-53.0) L Mean Corpuscular Volume 95 fL (79-100) Mean Corpuscular Hemoglobin 32 pg (25-35) Mean Corpuscular Hemoglobin Concent 33 g/dL (31-37) Red Cell Distribution Width 13.2 % (11.5-14.5) Platelet Count 197 x10^3/uL (140-400) Neutrophils (%) (Auto) 68 % (31-73) Lymphocytes (%) (Auto) 13 % (24-48) L Monocytes (%) (Auto) 15 % (0-9) H Eosinophils (%) (Auto) 4 % (0-3) H Basophils (%) (Auto) 1 % (0-3) Neutrophils # (Auto) 3.5 x10^3uL (1.8-7.7) Lymphocytes # (Auto) 0.7 x10^3/uL (1.0-4.8) L Monocytes # (Auto) 0.8 x10^3/uL (0.0-1.1) Eosinophils # (Auto) 0.2 x10^3/uL (0.0-0.7) Basophils # (Auto) 0.0 x10^3/uL (0.0-0.2) Sodium Level 140 mmol/L (136-145) Potassium Level 4.5 mmol/L (3.5-5.1) Chloride Level 106 mmol/L (98-107) Carbon Dioxide Level 28 mmol/L (21-32) Anion Gap 6 (6-14) Blood Urea Nitrogen 15 mg/dL (8-26) Creatinine 1.7 mg/dL (0.7-1.3) H Estimated GFR (Cockcroft-Gault) 39.1 BUN/Creatinine Ratio 9 (6-20) Glucose Level 101 mg/dL (70-99) H Calcium Level 8.7 mg/dL (8.5-10.1) Total Bilirubin 0.2 mg/dL (0.2-1.0) Aspartate Amino Transferase (AST) 15 U/L (15-37) Alanine Aminotransferase (ALT) 18 U/L (16-63) Alkaline Phosphatase 65 U/L (46-116) Total Protein 6.2 g/dL (6.4-8.2) L Albumin 2.5 g/dL (3.4-5.0) L Albumin/Globulin Ratio 0.7 (1.0-1.7) L Current Medications: Meds: Current Medications Medications (Trade) Dose Ordered Sig/Ki Route PRN Reason Start Time Stop Time Status Last Admin Dose Admin Melatonin (Melatonin) 6 mg HS PO 12/06/19 19:30 12/06/19 19:41 I have reviewed the current psychotropics carefully including drug interactions. Risk benefit ratio favors no change other than as noted in my dictated progress note. Diagnosis: Problems: (1) Impulse control disorder, unspecified (2) Mild cognitive impairment (3) Anxiety disorder, unspecified (4) Bipolar disorder, current episode manic severe with psychotic features WAN SEO MD Dec 06, 2019 22:01
[2019-12-07] MEDS: LEVOTHYROXINE 25 MCG TABLET. PO SCH (03:41)
[2019-12-07 03:50] VITALS: BP 143/83
[2019-12-07] MEDS: risperiDONE 0.5 MG TABLET. PO SCH (08:19)
--- NOTE | 2019-12-07 09:37 | NUR ---
Patient is calm and cooperative. Patient has no complaints this morning. Patient would like to speak with his family today via telephone.
[2019-12-07 10:32] LABS: VAL ACID 61 mcg/mL (50-100)
[2019-12-07 16:13] VITALS: BP 112/69
[2019-12-07] MEDS: MELATONIN 3 MG TABLET PO SCH (20:03)
[2019-12-07] MEDS: risperiDONE 1 MG TABLET. PO SCH (20:03)
[2019-12-07] MEDS: traZODone 50 MG TABLET. PO PRN (20:04)
[2019-12-07] MEDS: OLANZapine 5 MG TABLET PO PRN (20:04)
[2019-12-07] MEDS: DIVALPROEX ER 500 MG TAB.ER.24H PO SCH (20:04)
[2019-12-07] MEDS: traZODone 100 MG TABLET. PO PRN (20:04)
--- NOTE | 2019-12-07 22:18 | PDOC ---
Exam Note: Quoc Note: Please also refer to the separate dictated note~for this date of service dictated separately.~Patient seen individually. Discussed the patient with Nursing staff reviewed the chart.~Reviewed interim history and current functioning. Reviewed vital signs,~Labs/ Radiology~and current medications noted below. Continue current treatment with the changes noted in the dictated addendum note Assessment: Vital Signs/I&O: Vital Signs Date Time Temp Pulse Resp B/P (MAP) Pulse Ox O2 Delivery O2 Flow Rate FiO2 12/07/19 16:13 98.1 89 16 112/69 (83) 98 12/06/19 15:39 Room Air I & O 12/06/19 12/06/19 12/07/19 15:00 23:00 07:00 Intake Total 840 ml 590 ml Balance 840 ml 590 ml Labs: Laboratory Tests Test 12/07/19 08:15 Valproic Acid Level 61 mcg/mL (50-100) Valproic Acid Last Dose Date 12/06/19 Valproic Acid Last Dose Time 2100 Current Medications: I have reviewed the current psychotropics carefully including drug interactions. Risk benefit ratio favors no change other than as noted in my dictated progress note. Diagnosis: Problems: (1) Impulse control disorder, unspecified (2) Mild cognitive impairment (3) Anxiety disorder, unspecified (4) Bipolar disorder, current episode manic severe with psychotic features WAN SEO MD Dec 07, 2019 22:17
--- NOTE | 2019-12-07 22:24 | NUR ---
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 Chased a TECH into the hallway, and into a bathroom barricaded the door, she had been attempting to redirect him from entering peers rooms. She was able to get out and escorted him to the day room, he was pacing around the unit, demanding to go outside and weed the flower beds. Accusing staff of drugging and overdosing him, that he is flying high is so incredibly productive and that I am going to ruin that for him. States his threshold for gardening is 85 degrees and is ready to head to work since the [employer] sent him here to weed the garden on a special assignment. Then he wants to go to his room, but I told him he couldn't return secondary to entering peers rooms and locking the tech in the bathroom. He stated they are all liars, that he did no such thing. I told him if he calmed down and stopped arguing he could go to his room in a minute. He then sits on the couch counting to 60, then gets confrontational because I told him it would be 1 minute. I then told him to stop his arguing or he wouldn't go back to his room at all. He sat quietly for about 3 minutes then became hyperverbal again. Pt asked again if he could go to his room, I stated only if he would stay in his room, no roaming and intrusive behavior, he agreed. I escorted him to his room, and he got in bed soon after. PRN trazodone and zydis given with HS meds.
[2019-12-08 05:10] VITALS: BP 119/67
[2019-12-08] MEDS: LEVOTHYROXINE 25 MCG TABLET. PO SCH (05:10)
--- NOTE | 2019-12-08 06:57 | PDOC ---
Exam Note: Quoc Note: This note is a late entry for 12/06/2019 covers elements not covered in my initial note. Subjective: The patient was seen individually in the evening of 12/06/2019. Per Dione NELSON, he slept just 2 to 3-1/4 hours previous night. He has been wandering, looking for someone and states she works for the [employer]. Chemistry profile on 12/05 is unremarkable. We will check valproic acid level morning of 12/06. I met with him right after his supper. Review of Systems: Ambulation impaired with walker. No CV, , pulmonary, eye, ENT system symptoms on review. Mental Status Exam: Reasonably oriented. Speech is coherent. Abstraction is fair. Computation impaired. Language function is intact. Mood and affect somewhat anxious, labile. Laboratory Data: Reviewed. Impression: Bipolar 1 disorder, mixed with psychotic features. Anxiety disorder unspecified. Impulse control disorder unspecified. OCD. Plan: Continue current psychotropics per initial note. Assessment: Vital Signs/I&O: Vital Signs Date Time Temp Pulse Resp B/P (MAP) Pulse Ox O2 Delivery O2 Flow Rate FiO2 12/08/19 05:10 98.7 90 16 119/67 (84) 95 12/06/19 15:39 Room Air I & O 12/07/19 12/07/19 12/08/19 15:00 23:00 07:00 Intake Total 480 ml 240 ml Balance 480 ml 240 ml Labs: Laboratory Tests Test 12/07/19 08:15 Valproic Acid Level 61 mcg/mL (50-100) Valproic Acid Last Dose Date 12/06/19 Valproic Acid Last Dose Time 2100 Current Medications: I have reviewed the current psychotropics carefully including drug interactions. Risk benefit ratio favors no change other than as noted in my dictated progress note. Diagnosis: Problems: (1) Impulse control disorder, unspecified (2) Mild cognitive impairment (3) Anxiety disorder, unspecified (4) Bipolar disorder, current episode manic severe with psychotic features WAN SEO MD Dec 08, 2019 06:57
--- NOTE | 2019-12-08 07:21 | PDOC ---
Exam Note: Quoc Note: This note is a late entry for 12/07/2019 covers elements not covered in my initial note. Subjective: The patient was seen individually in the evening 12/07/2019. Per Lio NELSON, he slept 3-1/4 hours previous night. Previous evening he refused his p.r.n. He appears less psychotic. Diet has been changed to puree and he does better with this. Review of Systems: Ambulation impaired with walker. No CV, , pulmonary, eye system symptoms on review. Mental Status Exam: Reasonably oriented. He was somewhat more tearful today, talking in length about getting back home to [place] with his and follow-up with Dr. Philippe, psychiatrist whom he has seen for many years. We addressed this at some length. Speech is coherent. Abstraction is fair. Computation impaired. Attention span is short. Language function is intact. Mood and affect labile, withdrawn. No suicidal or homicidal ideation. Laboratory Data: Reviewed. Impression: Bipolar 1 disorder, mixed with psychotic features. Anxiety disorder unspecified. Impulse control disorder unspecified. Plan: Continue current psychotropics per initial note. Assessment: Vital Signs/I&O: Vital Signs Date Time Temp Pulse Resp B/P (MAP) Pulse Ox O2 Delivery O2 Flow Rate FiO2 12/08/19 05:10 98.7 90 16 119/67 (84) 95 12/06/19 15:39 Room Air I & O 12/07/19 12/07/19 12/08/19 15:00 23:00 07:00 Intake Total 480 ml 240 ml Balance 480 ml 240 ml Labs: Laboratory Tests Test 12/07/19 08:15 Valproic Acid Level 61 mcg/mL (50-100) Valproic Acid Last Dose Date 12/06/19 Valproic Acid Last Dose Time 2100 Current Medications: I have reviewed the current psychotropics carefully including drug interactions. Risk benefit ratio favors no change other than as noted in my dictated progress note. Diagnosis: Problems: (1) Impulse control disorder, unspecified (2) Mild cognitive impairment (3) Anxiety disorder, unspecified (4) Bipolar disorder, current episode manic severe with psychotic features WAN SEO MD Dec 08, 2019 07:21
[2019-12-08] MEDS: risperiDONE 0.5 MG TABLET. PO SCH (08:32)
[2019-12-08] MEDS: SCOPOLAMINE 1.5MG PATCH. TD SCH (08:33)
--- NOTE | 2019-12-08 09:02 | NUR ---
Patient is calm and cooperative. Patient has no complaints this morning. Patient remembers [place] and was asking when his green party was
[2019-12-08 15:45] VITALS: BP 132/68
[2019-12-08] MEDS: MELATONIN 3 MG TABLET PO SCH (20:05)
[2019-12-08] MEDS: DIVALPROEX ER 500 MG TAB.ER.24H PO SCH (20:06)
[2019-12-08] MEDS: traZODone 100 MG TABLET. PO PRN (20:07)
[2019-12-08] MEDS: risperiDONE 1 MG TABLET. PO SCH (20:07)
[2019-12-08] MEDS: OLANZapine 5 MG TABLET PO PRN (20:07)
--- NOTE | 2019-12-08 21:26 | NUR ---
Patient is in his room on assumption of care. He is in pleasant spirits. No delusions voiced so far this shift. He is calm, cooperative and compliant with assessments and medications taken whole. No agitation. Denies any pain or discomfort. Denies SI.
--- NOTE | 2019-12-08 22:02 | PDOC ---
Exam Note: Quoc Note: Please also refer to the separate dictated note~for this date of service dictated separately.~Patient seen individually. Discussed the patient with Nursing staff reviewed the chart.~Reviewed interim history and current functioning. Reviewed vital signs,~Labs/ Radiology~and current medications noted below. Continue current treatment with the changes noted in the dictated addendum note Assessment: Vital Signs/I&O: Vital Signs Date Time Temp Pulse Resp B/P (MAP) Pulse Ox O2 Delivery O2 Flow Rate FiO2 12/08/19 15:45 97.4 81 20 132/68 (89) 97 12/06/19 15:39 Room Air I & O 12/07/19 12/07/19 12/08/19 15:00 23:00 07:00 Intake Total 480 ml 240 ml Balance 480 ml 240 ml Current Medications: I have reviewed the current psychotropics carefully including drug interactions. Risk benefit ratio favors no change other than as noted in my dictated progress note. Diagnosis: Problems: (1) Impulse control disorder, unspecified (2) Mild cognitive impairment (3) Anxiety disorder, unspecified (4) Bipolar disorder, current episode manic severe with psychotic features WAN SEO MD Dec 08, 2019 22:02
[2019-12-09] MEDS: LEVOTHYROXINE 25 MCG TABLET. PO SCH (05:08)
[2019-12-09 05:41] VITALS: BP 149/71
[2019-12-09] MEDS: risperiDONE 0.5 MG TABLET. PO SCH (08:13)
--- NOTE | 2019-12-09 09:35 | NUR ---
Nursing note: Pt in dining room for morning meds and assessment. He was calm, med compliant, and cooperative. Pt has been walking around the unit wearing the "poncho" he made overnight. He had no complaints this morning. He is currently sitting in his room. Will continue to monitor.
--- NOTE | 2019-12-09 15:21 | NUR ---
Call placed to Patrick, /POA, with intent to touch base about preferred for d/c location. Patrick had left SW a message previously that she has spoken with V[facility] at [facility] and also to Nithya Adams with senior services. Left message for Patrick with request for return phone call.
[2019-12-09 16:15] VITALS: BP 129/71
[2019-12-09] MEDS: risperiDONE 1 MG TABLET. PO SCH (21:30)
[2019-12-09] MEDS: MELATONIN 3 MG TABLET PO SCH (21:30)
[2019-12-09] MEDS: DIVALPROEX ER 500 MG TAB.ER.24H PO SCH (21:30)
--- NOTE | 2019-12-09 22:00 | PDOC ---
Exam Note: Quoc Note: Please also refer to the separate dictated note~for this date of service dictated separately.~Patient seen individually. Discussed the patient with Nursing staff reviewed the chart.~Reviewed interim history and current functioning. Reviewed vital signs,~Labs/ Radiology~and current medications noted below. Continue current treatment with the changes noted in the dictated addendum note Assessment: Vital Signs/I&O: Vital Signs Date Time Temp Pulse Resp B/P (MAP) Pulse Ox O2 Delivery O2 Flow Rate FiO2 12/09/19 16:15 98.7 84 16 129/71 (90) 97 12/06/19 15:39 Room Air I & O 12/08/19 12/08/19 12/09/19 15:00 23:00 07:00 Intake Total 600 ml 360 ml Balance 600 ml 360 ml Current Medications: I have reviewed the current psychotropics carefully including drug interactions. Risk benefit ratio favors no change other than as noted in my dictated progress note. Diagnosis: Problems: (1) Impulse control disorder, unspecified (2) Mild cognitive impairment (3) Anxiety disorder, unspecified (4) Bipolar disorder, current episode manic severe with psychotic features WAN SEO MD Dec 09, 2019 22:00
--- NOTE | 2019-12-09 23:53 | NUR ---
Nursing Note The patient was located in his room for his assessment and medication pass. The patient was calm and cooperative during interactions with this nurse and when taking his medication the patient asked this nurse to explain his medication which this nurse did. The patient took his medication whole. The patient is currently sleeping in his room.
[2019-12-10 05:00] VITALS: BP 107/68
[2019-12-10] MEDS: LEVOTHYROXINE 25 MCG TABLET. PO SCH (06:00)
[2019-12-10] MEDS: risperiDONE 0.5 MG TABLET. PO SCH (08:43)
--- NOTE | 2019-12-10 08:57 | PDOC ---
Exam Note: Quoc Note: This note is a late entry for 12/08/2019 covers elements not covered in my initial note. Subjective: The patient was seen individually in the evening 12/08/2019. Per Lio NELSON, he slept 6-3/4 hours previous night. He remains somewhat hypomanic, hyperverbal at times, somewhat grandiose. Review of Systems: Ambulation impaired with walker. No CV, , pulmonary, eye system symptoms on review. Mental Status Exam: Reasonably oriented. He remains somewhat hyperverbal, reflective of his hypomania which is improving. Speech is coherent. Abstraction is fair. Computation impaired. Attention span is short. Language function is intact. Mood and affect somewhat hypomanic. No suicidal or homicidal ideation. Laboratory Data: Reviewed. Impression: Bipolar 1 disorder, mixed with psychotic features. Anxiety disor martin unspecified. Impulse control disorder unspecified. Plan: Continue current psychotropics per initial note. Assessment: Vital Signs/I&O: Vital Signs Date Time Temp Pulse Resp B/P (MAP) Pulse Ox O2 Delivery O2 Flow Rate FiO2 12/10/19 08:26 97.7 12/09/19 16:15 84 16 129/71 (90) 97 12/06/19 15:39 Room Air I & O 12/09/19 12/09/19 12/10/19 15:00 23:00 07:00 Intake Total 360 ml 680 ml Balance 360 ml 680 ml Current Medications: I have reviewed the current psychotropics carefully including drug interactions. Risk benefit ratio favors no change other than as noted in my dictated progress note. Diagnosis: Problems: (1) Impulse control disorder, unspecified (2) Mild cognitive impairment (3) Anxiety disorder, unspecified (4) Bipolar disorder, current episode manic severe with psychotic features WAN SEO MD Dec 10, 2019 08:57
--- NOTE | 2019-12-10 09:15 | PDOC ---
Exam Note: Quoc Note: This note is a late entry for 12/09/2019 covers elements not covered in my initial note. Subjective: The patient was seen individually in the evening 12/09/2019. Per Becca NELSON, generally the patient has done better. Previous evening he was somewhat obsessive, intrusive, pulled apart some thread from his blanket and made it into a puncho. The patient states he was feeling cold and did this and this was not reflective of eliseo. I addressed this with him individually in his room in the evening. He remains intermittently delusional per nursing staff. Review of Systems: Ambulation impaired with walker. No CV, , pulmonary, eye system symptoms on review. Mental Status Exam: Reasonably oriented. Speech is coherent. Abstraction is fair. Computation impaired. Attention span is short. Language function is intact. Mood and affect remains intermittent delusional, obsessive. Laboratory Data: Reviewed. Impression: Bipolar 1 disorder, mixed with psychotic features. Anxiety disorder unspecified. Impulse control disorder unspecified. Plan: Continue current psychotropics per initial note. Assessment: Vital Signs/I&O: Vital Signs Date Time Temp Pulse Resp B/P (MAP) Pulse Ox O2 Delivery O2 Flow Rate FiO2 12/10/19 08:26 97.7 12/09/19 16:15 84 16 129/71 (90) 97 12/06/19 15:39 Room Air I & O 12/09/19 12/09/19 12/10/19 15:00 23:00 07:00 Intake Total 360 ml 680 ml Balance 360 ml 680 ml Current Medications: I have reviewed the current psychotropics carefully including drug interactions. Risk benefit ratio favors no change other than as noted in my dictated progress note. Diagnosis: Problems: (1) Impulse control disorder, unspecified (2) Mild cognitive impairment (3) Anxiety disorder, unspecified (4) Bipolar disorder, current episode manic severe with psychotic features WAN SEO MD Dec 10, 2019 09:15
--- NOTE | 2019-12-10 09:46 | NUR ---
0600 Synthroid given by HS staff while [employer] was down.
--- NOTE | 2019-12-10 10:44 | NUR ---
Nursing note: Pt in his room for morning meds and assessment. He was pleasant, med compliant, and cooperative. He had no complaints at time of assessment. He has been walking around the unit this morning while wearing his mask and has been writing in his journal. He is currently sitting in his room. Will continue to monitor.
--- NOTE | 2019-12-10 14:54 | NUR ---
Call placed to Delfino, /POA, to inform of potential Covid exposure on [facility]. Informed Delfino that the unit will be quarantined for the next two weeks. Delfino is aware she can continue to call the nursing staff for updates and visit with Matteo via phone. Delfino feels that her recent conversations with Matteo over the phone have been more lucid. Delfino will be involved in team meeting on 12/11/19.
[2019-12-10 15:19] VITALS: BP 156/72
[2019-12-10] MEDS: DIVALPROEX ER 500 MG TAB.ER.24H PO SCH (20:34)
[2019-12-10] MEDS: risperiDONE 1 MG TABLET. PO SCH (20:34)
[2019-12-10] MEDS: MELATONIN 3 MG TABLET PO SCH (20:35)
[2019-12-10] MEDS: traZODone 100 MG TABLET. PO SCH (20:36)
--- NOTE | 2019-12-10 21:59 | PDOC ---
Exam Note: Quoc Note: Please also refer to the separate dictated note~for this date of service dictated separately.~Patient seen individually. Discussed the patient with Nursing staff reviewed the chart.~Reviewed interim history and current functioning. Reviewed vital signs,~Labs/ Radiology~and current medications noted below. Continue current treatment with the changes noted in the dictated addendum note Assessment: Vital Signs/I&O: Vital Signs Date Time Temp Pulse Resp B/P (MAP) Pulse Ox O2 Delivery O2 Flow Rate FiO2 12/10/19 20:43 98.4 95 12/10/19 15:19 89 18 156/72 (100) 12/06/19 15:39 Room Air I & O 12/09/19 12/09/19 12/10/19 15:00 23:00 07:00 Intake Total 360 ml 680 ml Balance 360 ml 680 ml Current Medications: Meds: Current Medications Medications (Trade) Dose Ordered Sig/Ki Route PRN Reason Start Time Stop Time Status Last Admin Dose Admin Trazodone HCl (Desyrel) 100 mg QHS PO 12/10/19 21:00 12/10/19 20:36 I have reviewed the current psychotropics carefully including drug interactions. Risk benefit ratio favors no change other than as noted in my dictated progress note. Diagnosis: Problems: (1) Impulse control disorder, unspecified (2) Mild cognitive impairment (3) Anxiety disorder, unspecified (4) Bipolar disorder, current episode manic severe with psychotic features WAN SEO MD Dec 10, 2019 21:59
--- NOTE | 2019-12-11 00:37 | NUR ---
Nursing Note The patient has been compliant with using his mask and staying in his room this shift. The patient took his medication whole and was pleasant during interactions with this nurse. The patient is currently awake in his room.
[2019-12-11] MEDS: LEVOTHYROXINE 25 MCG TABLET. PO SCH (05:34)
[2019-12-11 06:06] VITALS: BP 125/84
--- NOTE | 2019-12-11 07:40 | PDOC ---
Exam Note: Quoc Note: This note is a late entry for 12/10/2019 covers elements not covered in my initial note. Subjective: The patient was seen on telehealth rounds in the evening of 12/10/2019 with Clemente RN and Susana RN. COVID-19 screen has been done on all patients and staff members since one patient has turned up positive for COVID-19 on the unit today. The unit is on lockdown per the [facility] of Health and Environment ([facility])/Centers for Disease Control (CDC) due to the COVID positive patient on our unit, which was discovered. All patients are back in their rooms and are not using main dining room either to avoid group activities and exposure. Per Becca NELSON, she slept 2-1/2 hours previous night but he was not given any trazodone. Reportedly, he was up and down all night per nursing report. He is more mobile, walking up and down the hallway till patients had been restricted to their room not more one in one room because of the COVID exposure on the unit. The patient states his eliseo appears much better to him subjectively. Review of Systems: Ambulation impaired with walker. No CV, , pulmonary, eye system symptoms on review. Mental Status Exam: Reasonably oriented. Speech is coherent. Abstraction is fair. Computation impaired. Attention span is short. Language function is intact. Mood and affect remains improved. Laboratory Data: Reviewed. Impression: Bipolar 1 disorder, mixed with psychotic features. Anxiety disorder unspecified. Impulse control disorder unspecified. Plan: The patient has been getting trazodone 100 mg h.s. p.r.n. May repeat x1 50 mg p.r.n. for insomnia. We will in fact change this to 100 mg h.s. scheduled and may repeat 50 mg p.r.n. insomnia after that if needed. Rest of the psychotropics unchanged. Assessment: Vital Signs/I&O: Vital Signs Date Time Temp Pulse Resp B/P (MAP) Pulse Ox O2 Delivery O2 Flow Rate FiO2 12/11/19 06:06 97.7 98 20 125/84 (98) 96 12/06/19 15:39 Room Air I & O 12/10/19 12/10/19 12/11/19 15:00 23:00 07:00 Intake Total 960 ml 780 ml Balance 960 ml 780 ml Current Medications: Meds: Current Medications Medications (Trade) Dose Ordered Sig/Ik Route PRN Reason Start Time Stop Time Status Last Admin Dose Admin Trazodone HCl (Desyrel) 100 mg QHS PO 12/10/19 21:00 12/10/19 20:36 I have reviewed the current psychotropics carefully including drug interactions. Risk benefit ratio favors no change other than as noted in my dictated progress note. Diagnosis: Problems: (1) Impulse control disorder, unspecified (2) Mild cognitive impairment (3) Anxiety disorder, unspecified (4) Bipolar disorder, current episode manic severe with psychotic features WAN SEO MD Dec 11, 2019 07:40
[2019-12-11] MEDS: risperiDONE 0.5 MG TABLET. PO SCH (08:22)
[2019-12-11] MEDS: SCOPOLAMINE 1.5MG PATCH. TD SCH (08:23)
--- NOTE | 2019-12-11 09:50 | NUR ---
Nursing note: Pt was in his room for morning meds and assessment. He was pleasant, med compliant, and cooperative. He has been walking laps around the unit with one of the other patients on the unit. Pt does need occasional reminders to wear his mask when outside of his room, but when reminded, he is appreciative and quickly goes back to his room to put it on. He is currently sitting in his room. Will continue to monitor.
--- NOTE | 2019-12-11 14:44 | NUR ---
1:1 with Matteo this afternoon to provide support and socialization. Matteo and his have regular phone conversations and per Delfino are not seeing eye to eye right now. Matteo spent some time talking about his most recent conversation with Delfino and will wait for her to phone back. JAREN will continue to be available to offer support prn. Delfino will be involved in team meeting on 12/12/19.
--- NOTE | 2019-12-11 15:27 | NUR ---
COVID swab complete and sent to lab.
[2019-12-11 15:34] VITALS: BP 145/75
[2019-12-11] MEDS: DIVALPROEX ER 500 MG TAB.ER.24H PO SCH (21:09)
[2019-12-11] MEDS: MELATONIN 3 MG TABLET PO SCH (21:09)
[2019-12-11] MEDS: risperiDONE 1 MG TABLET. PO SCH (21:09)
[2019-12-11] MEDS: traZODone 100 MG TABLET. PO SCH (21:09)
--- NOTE | 2019-12-11 21:25 | NUR ---
JAREN contacted pt Patrick to inform her that pt Covoid testing results have come back tonight as a positive test. As it stands, pt appears to be asymptomatic and no complaints of feeling ill or having any troubles. Pt mentioned that she would still plan to be a part of treatment team and will call nursing to find out for sure when pt will move downstairs. SW to notify his SW and follow up in the morning.
--- NOTE | 2019-12-11 22:06 | PDOC ---
Exam Note: Quoc Note: Please also refer to the separate dictated note~for this date of service dictated separately.~Patient seen individually. Discussed the patient with Nursing staff reviewed the chart.~Reviewed interim history and current functioning. Reviewed vital signs,~Labs/ Radiology~and current medications noted below. Continue current treatment with the changes noted in the dictated addendum note Assessment: Vital Signs/I&O: Vital Signs Date Time Temp Pulse Resp B/P (MAP) Pulse Ox O2 Delivery O2 Flow Rate FiO2 12/11/19 19:03 98.1 12/11/19 15:34 91 18 145/75 (98) 95 12/06/19 15:39 Room Air I & O 12/10/19 12/10/19 12/11/19 15:00 23:00 07:00 Intake Total 960 ml 780 ml Balance 960 ml 780 ml Labs: Laboratory Tests Test 12/11/19 12:50 Coronavirus (COVID-19)(PCR) Positive (NEGATIVE) H Current Medications: I have reviewed the current psychotropics carefully including drug interactions. Risk benefit ratio favors no change other than as noted in my dictated progress note. Diagnosis: Problems: (1) Impulse control disorder, unspecified (2) Mild cognitive impairment (3) Anxiety disorder, unspecified (4) Bipolar disorder, current episode manic severe with psychotic features WAN SEO MD Dec 11, 2019 22:06
--- NOTE | 2019-12-12 03:01 | NUR ---
Nursing Note The patient was calm and cooperative this shift and displayed less manic behaviors. The patient took his medication whole. The patient is currently sleeping in his room.
[2019-12-12] MEDS: LEVOTHYROXINE 25 MCG TABLET. PO SCH (06:11)
[2019-12-12 06:24] VITALS: BP 115/66
--- NOTE | 2019-12-12 07:07 | PDOC ---
Exam Note: Quoc Note: This note is a late entry for 12/11/2019 covers elements not covered in my initial note. Subjective: The patient was seen on telehealth rounds in the evening of 12/11/2019 with nursing staff. The unit is on lockdown due to the COVID positive patient on our unit, which was discovered. Each patient is in their room, not able to come out to the dining room or to interact with others according to the recommendation by the [facility] of Health and Environment. Per Becca NELSON, he slept 5-3/4 hours previous night. Overall, the patient has had a good mood. He has been walking around the unit, less manic. Late this evening, his COVID swab has returned positive and will defer to Dr. Julieta jacobson for all the patients who have returned positive on our unit. Review of Systems: Ambulation impaired with walker. No CV, , pulmonary, eye system symptoms on review. Mental Status Exam: Reasonably oriented. Speech is coherent. Abstraction is fair. Computation impaired. Attention span is short. Language function is intact. Mood and affect remains improved. Laboratory Data: Reviewed. Impression: Bipolar 1 disorder, mixed with psychotic features. Anxiety disorder unspecified. Impulse control disorder unspecified. Plan: Continue rest of the psychotropics unchanged. Assessment: Vital Signs/I&O: Vital Signs Date Time Temp Pulse Resp B/P (MAP) Pulse Ox O2 Delivery O2 Flow Rate FiO2 12/12/19 06:24 98.0 73 20 115/66 (82) 98 12/06/19 15:39 Room Air I & O 12/11/19 12/11/19 12/12/19 15:00 23:00 07:00 Intake Total 960 ml 360 ml 120 ml Balance 960 ml 360 ml 120 ml Labs: Laboratory Tests Test 12/11/19 12:50 Coronavirus (COVID-19)(PCR) Positive (NEGATIVE) H Current Medications: I have reviewed the current psychotropics carefully including drug interactions. Risk benefit ratio favors no change other than as noted in my dictated progress note. Diagnosis: Problems: (1) Impulse control disorder, unspecified (2) Mild cognitive impairment (3) Anxiety disorder, unspecified (4) Bipolar disorder, current episode manic severe with psychotic features WAN SEO MD Dec 12, 2019 07:07
[2019-12-12] MEDS: risperiDONE 0.5 MG TABLET. PO SCH (10:19)
--- NOTE | 2019-12-12 10:55 | TX PLAN ---
Interdisciplinary Tx Plan Admission Information Nov 20, 2019 at 14:42 Legal Status (on Admission): Voluntary, DPOA DPOA/Guardian Name: Patrick Muñiz-spouse/POA Contact Other Contact Name: Patrick Other Contact Verified Code Status: Full Code Allergies: Coded Allergies: prednisolone (Verified Allergy, Mild, 11/20/19) Estimated Length of Stay: 14 Diagnoses Primary Diagnosis: Bipolar mixed with psychotic features Reasons for Admission: Delusions, Agitated, Sig. Change Sleep, Angry, Suspicious/paranoid, Poor impulse control Problem in Patient's Words: Per Matteo, this is my "fifth manic episode." Additional Admission Comments: Per intake, hearing voices, delusional, manic, psychotic, agitated, yelling at family, labile mood, racing thoughts, paranoid, insomnia, and laying out in hot driveway. Problems Active Problems: Manic Grandiose Not sleeping Inactive Problems: Medication complaint Pt Strengths/Limitations Ability for [place]: Fair Cognitive Functioning/Ability: Fair Communication Skills/Ability: Fair Financial Resources: Fair Insight/Judgement: Fair Intellectual Ability: Good Physical Health: Fair Social Skills: Fair Stability in Family: Fair Verbal Skills: Good Discharge Criteria Discharge Criteria: Adequate arrangements @DC, Adequate self-care, Improved behavior, Improved mood/thought Preliminary Discharge Plan Preliminary DC Plan: Home Special Precautions Fall Risk: High Initial D/C Plan Home with once stable Identified Discharge Needs: Follow up with PCP and psychiatrist Currently Utilized Resources Currently Utilized Resources/P: PCP, psychiatry, counseling prn Identified Problems/Hx/Goals Objectives/Short-Term Goals Short Term Goals: Control abnormal behavior, Dec. Hallucination/Delus, Medication Stabilization, Monitor Med Effects, Promote Coping Skill Short Term Goals in Patient's: Per Matteo, "Anything my wants, she wants me to get better." Interventions/Frequency Staff Interventions/Frequency&: Nursing to provide routine checks, medication administration, and adl support. Psychiatry visit 3-5 times weekly. SW visits twice weekly. Recreational and SW groups as Matteo will participate. 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 Matteo also worked in the [employer] industry. Social: Matteo enjoys exercising, volunteer work, pentecostalism involvement, and camping. Education: Matteo graduated high school and obtained a BA in economics. Community Follow-up PCP, psychiatry, counseling prn Treatment Plan Explained Patient/Manager Adobe had this treatment plan explained to him/her as indicated by the signature below and has been given the opportunity to ask questions and make suggestions: Date: Patient/Manager Adobe Signature: Status Update Update WEEKLY NOTE/UPDATE: Matteo is averaging 75% of meal intakes and 4-5 hours of sleep at night. While he has periods of being less hyper-verbal, he writes notes in his journal and to others frequently. Matteo is active, has been attending meals, and group programming. 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 Matteo has tested positive for Covid and will be transferred to ICU for continued care and monitoring. MICHELLE ART Dec 12, 2019 10:55
--- NOTE | 2019-12-12 11:26 | NUR ---
Patient COVID 19 test done 12/10 is positive.
--- NOTE | 2019-12-12 11:26 | NUR ---
Patient is calm and pleasant. He is compliant with his medications, he takes them whole with water. When nurse entered the room patient was laying on the bed relaxing, he is oriented x4 and did not voice any delusions at this time. Patient is positive for COVID and has been asked to remain in his room pending transfer to another unit in the hospital. Patient has been compliant and remained in his room this morning writing notes to "mail" to his , SW and other people. Nurse gave patient an envelope to put the notes in labeled "out going mail" so that he would stop sliding them under his door and into the hallway. Patient has asked to use the phone to call his a few times, redirected by nurse and told he might be able to call at some point this afternoon. Patient eats a pureed diet with regular liquids. He is [place] and usually up ad edilson with walker.
[2019-12-12] MEDS ORDERED: ACET325T9 PO (12:44)
[2019-12-12] MEDS ORDERED: DIVA500T4 PO (12:45)
--- NOTE | 2019-12-12 12:45 | NUR ---
Call placed to Te, /POA, to provide update and progress report following team meeting. Matteo will be transferred to ICU this date for continued monitoring and treatment. Provided ICU phone number to Te. Te continues to explore d/c options including "[facility]" a residential care facility offered by part of the [facility]. ship yard electrical person is Sarahy Adams at [phone].
[2019-12-12] MEDS ORDERED: MAG-115 PO (12:46)
[2019-12-12] MEDS ORDERED: MAGN24003 PO (12:46)
[2019-12-12] MEDS ORDERED: MELA3TAB4 PO (12:47)
[2019-12-12] MEDS ORDERED: SCOP1PAT11 TD (12:48)
[2019-12-12] MEDS ORDERED: METH28OI2 TP (12:48)
[2019-12-12] MEDS ORDERED: RISP1TAB43 PO (12:49)
[2019-12-12] MEDS ORDERED: TRAZ-120 PO (12:50)
[2019-12-12] MEDS ORDERED: TRAZ-125 PO (12:50)
--- NOTE | 2019-12-12 13:23 | NUR ---
Patient to transfer to [address] [place] [address]. DX: Covid 19 positive
--- NOTE | 2019-12-12 18:29 | NUR ---
Transition Record was faxed to follow-up provider with the following elements: Reason for admission, procedures, tests, principal diagnosis, pending studies, patient instructions, 19/12 contact information for unit, phone number to obtain pending test results, plan for follow-up care, physician follow-up, advanced directive information, and medication list with dose, duration and instructions. This information was included in the following documents: History and physical, lab results, study results, progress notes, social work planning form, DC instruction form, patient visit summary, and medication reconciliation form. Date & time record faxed: 12/12/2019 at 1341 [place] [facility] [place] report given to: LESLIE Keller 1 [facility]
--- NOTE | 2019-12-12 23:31 | PDOC ---
Exam Note: Quoc Note: Please also refer to the separate dictated note~for this date of service dictated separately.~Patient seen individually. Discussed the patient with Nursing staff reviewed the chart.~Reviewed interim history and current functioning. Reviewed vital signs,~Labs/ Radiology~and current medications noted below. Continue current treatment with the changes noted in the dictated addendum note Assessment: Vital Signs/I&O: Vital Signs Date Time Temp Pulse Resp B/P (MAP) Pulse Ox O2 Delivery O2 Flow Rate FiO2 12/12/19 09:45 98.1 99 12/12/19 06:24 73 20 115/66 (82) 12/06/19 15:39 Room Air I & O 12/11/19 12/11/19 12/12/19 15:00 23:00 07:00 Intake Total 960 ml 360 ml 120 ml Balance 960 ml 360 ml 120 ml Current Medications: I have reviewed the current psychotropics carefully including drug interactions. Risk benefit ratio favors no change other than as noted in my dictated progress note. Diagnosis: Problems: (1) Bipolar disorder, curr episode mixed, severe, with psychotic features (2) Impulse control disorder, unspecified (3) Mild cognitive impairment (4) Anxiety disorder, unspecified (5) Bipolar disorder, current episode manic severe with psychotic features (6) COVID-19 WAN SEO MD Dec 12, 2019 23:31
[2019-12-13] MEDS ORDERED: ENOXAPARIN 40 MG/0.4 ML SYRINGE. SQ SCH (17:45)
== END 2019-12-12 13:24 | disposition short-term general hospital (02) | DRG 885 ==
LOC: GEROPSY 14:42
PROVIDERS: ADMIT Psychiatry & Neurology Psychiatry; ATTEND Psychiatry & Neurology Psychiatry
DX: F31.64 Bipolar disorder, current episode mixed, severe, with psychotic features (principal); U07.1 COVID-19; E78.5 Hyperlipidemia, unspecified; F41.9 Anxiety disorder, unspecified; F63.9 Impulse disorder, unspecified; G31.84 Mild cognitive impairment of uncertain or unknown etiology; I12.9 Hypertensive chronic kidney disease with stage 1 through stage 4 chronic kidney disease, or unspecified chronic kidney disease; M19.90 Unspecified osteoarthritis, unspecified site; N18.2 Chronic kidney disease, stage 2 (mild); N40.0 Benign prostatic hyperplasia without lower urinary tract symptoms; Z79.899 Other long term (current) drug therapy; Z85.820 Personal history of malignant melanoma of skin; Z86.010 Personal history of colon polyps; Z90.49 Acquired absence of other specified parts of digestive tract; Z96.643 Presence of artificial hip joint, bilateral; Z88.8 Allergy status to other drugs, medicaments and biological substances
CPT/HCPCS: 36415; 70450; 80053; 80061; 80164; 80178; 81001; 82140; 82306; 82607; 83036; 83540; 83550; 83735; 84436; 84443; 84480; 85025; 86592; 97530; U0003-CS

== ENCOUNTER 2019-12-12 14:15 | Inpatient (IN) | payer MEDICARE ==
[~2019-12-12] VITALS: Ht 170.2 cm; Wt 78.9 kg
[~2019-12-12 14:15] MED LIST: ACET325T9 PO; DIVA500T4 PO; LEVO25TA4 PO; LITH300T22 PO; MAG-115 PO; MAGN24003 PO; MELA3TAB4 PO; METH28OI2 TP; OLAN5TAB9 PO; RISP0.5T3 PO; RISP1TAB43 PO; SCOP1PAT11 TD; TRAZ-120 PO; TRAZ-125 PO
[2019-12-12] MEDS ORDERED: traZODone 50 MG TABLET. PO PRN (15:15)
[2019-12-12] MEDS ORDERED: MAGNESIUM HYDROXIDE 2,400 MG/30 ML ORAL.SUSP. PO PRN (15:15)
[2019-12-12] MEDS ORDERED: METHYL SALICYLATE/MENTHOL TOPICAL OINTMENT 57GM TUBE. TP PRN (15:15)
[2019-12-12] MEDS ORDERED: MAG HYDROX/AL HYDROX/SIMETH 30 ML ORAL.SUSP PO PRN (15:15)
[2019-12-12 16:22] VITALS: BP 160/70
[2019-12-12 20:32] VITALS: BP 131/74
--- NOTE | 2019-12-12 21:00 | NUR ---
Pt. arrived to room 125 via wheelchair accompanied by [facility] staff member. Pt. tested positive on 12/10 for COVID-19 and is now placed in airborne and contact precautions. Pt. was orientated to unit and routines after assessment. Pt. seems to be quit talkative and somewhat confused about where he is. Pt was reoriented about which hospital he is at. Pt. states that he uses upper and lower dentures but did not have any on admission. Pt said that his lower dentures broke before coming into hospital. Pt. states he is to get fitted for new dentures following discharge.
[2019-12-12] MEDS: traZODone 100 MG TABLET. PO SCH (21:18)
[2019-12-12] MEDS: MELATONIN 3 MG TABLET PO SCH (21:18)
[2019-12-12] MEDS: DIVALPROEX ER 500 MG TAB.ER.24H PO SCH (21:18)
[2019-12-12] MEDS: risperiDONE 1 MG TABLET. PO SCH (21:18)
[2019-12-12 22:02] VITALS: BP 145/72
[2019-12-13] MEDS: LEVOTHYROXINE 25 MCG TABLET. PO SCH (04:54)
[2019-12-13 05:01] VITALS: BP 112/56
--- NOTE | 2019-12-13 07:58 | NUR ---
IP: patient COVID-19 +, requires contact and airborne precautions.
[2019-12-13] MEDS: risperiDONE 0.5 MG TABLET. PO SCH (08:45)
[2019-12-13] MEDS ORDERED: OLANZapine 5 MG TABLET PO PRN (09:00)
[2019-12-13 11:04] VITALS: BP 129/67
--- NOTE | 2019-12-13 12:54 | NUR ---
PATIENT IS A/O X4 THIS AM, NICE AND PLEASANT UPON ASSESSMENT, STATED HE IS IN A GOOD SPIRIT, WAS ABLE TO TAKE A SHOWER, NO C/O OF PAIN, NO N/V/D, HE IS AWARE THAT HE IS ON ISOLATION D/T COVID POSITIVE RESULT. RAOUL.
[2019-12-13 14:55] VITALS: BP 155/79
[2019-12-13] MEDS: ENOXAPARIN 40 MG/0.4 ML SYRINGE. SQ SCH (17:59)
--- NOTE | 2019-12-13 19:07 | HP ---
ADMIT DATE: 12/12/2019 HISTORY OF PRESENT ILLNESS: The patient is a 79-year-old male patient who was transferred from [facility] on account of being positive for COVID-19; however, he himself is asymptomatic. He denied any complaint, in particular denied any chest pain, has shortness of breath. He was afebrile and he was transferred to [address] [place] [address] for 2 weeks quarantine. The patient was admitted to [facility] on account of marked agitation, yelling at family, having a labile mood, hearing voices, delusional, being manic with racing thoughts, jumping from one thing to another. He had laid himself in a driveway, behaviors were deemed dangerous, unmanageable at home. He was evaluated by the Crisis intervention team with the local mental health center and taken to the Emergency Room at [facility] on 11/14/2019. Seroquel was started and discontinued behaviors and mood liability resisted. He continued to have racing thoughts, tearfulness, deemed a potential danger to himself if he returned home without psychiatric stabilization and therefore he was transferred to [facility] for inpatient psychiatric stabilization. PAST MEDICAL HISTORY: Medically, the patient has multiple medical problems including: A. Hypertension. B. Benign prostatic hypertrophy. C. Hyperlipidemia. D. ____. E. Melanoma. F. Peripheral neuropathy. G. Sensorineural deafness. H. History of chronic kidney disease. I. Diverticulitis. PAST SURGICAL HISTORY: Significant for appendectomy and status post bilateral total hip arthroplasty. ALLERGIES: He is allergic to PREDNISOLONE. FAMILY HISTORY: Noncontributory. SOCIAL HISTORY: He lives with his . He does not smoke, drink alcohol or use any recreational drugs. REVIEW OF SYSTEMS: As per history of present illness. MEDICATIONS: He is currently on following medications: He is on analgesic balm topically 4 times a day, acetaminophen 650 mg every 6 hours, divalproex 1000 mg at bedtime, trazadone ____, trazodone 100 mg at bedtime, olanzapine 5 mg twice a day as needed, risperidone 0.5 mg daily, risperidone 1 mg at bedtime, Mylanta 15 mL after meals and as needed, milk of magnesia 30 mL p.o. daily p.r.n. for constipation, scopolamine 1.5 mg transdermal patch topically q. 3 days, levothyroxine sodium 25 mcg once a day, and melatonin 6 mg at bedtime. PHYSICAL EXAMINATION: GENERAL: On arrival, he looked well and was in no apparent respiratory distress. No pallor, jaundice, cyanosis or thyromegaly. No jugular venous distention. No limb edema. VITAL SIGNS: His heart rate was 77, blood pressure was 131/74, temperature was 98.9, respiratory rate 20, and oxygen saturation was 93% on room air. HEAD, EYES, EARS, NOSE AND THROAT: Showed normocephalic, atraumatic. NECK: Supple. HEART: Showed normal first and second heart sounds. No gallop or murmur. CHEST: Clear to auscultation. No crepitation or rhonchi. ABDOMEN: Distended, soft, nontender. NEUROLOGIC: He was awake, alert, responding appropriately. All cranial nerves intact. EXTREMITIES: He moves extremities without difficulty, ambulates without assistance or assistive devices. LABORATORY DATA: Showed that he was tested positive for COVID-19 by PCR on December 10. His most recent chemistry showed a serum sodium 140, potassium 4.5, chloride 106, bicarbonate 28, anion gap of 6, BUN 15, creatinine 1.7, estimated GFR was 39 mL per minute. His glucose was 101, calcium was 8.7. Total bilirubin, AST, ALT, alkaline phosphatase were normal. Total protein was 6.2, albumin 2.5. His most recent white cell count was 5200, hemoglobin 12, hematocrit 37, MCV 95, and platelet count of 197,000. PLAN: Obviously to continue on all his current medications. I will repeat his lab work including his inflammatory markers and we will monitor him closely and decide the further management accordingly. ABBIE BARLOW MD DR: BRENDEN/hamlet JOB#: [id number] / [id number]
[2019-12-13 19:38] VITALS: BP 157/70
--- NOTE | 2019-12-13 20:52 | PN ---
DATE: 12/13/2019 SUBJECTIVE: The patient was transferred yesterday from [facility] on account of his testing positive for coronavirus-19. However, he remains asymptomatic, in particular, he is afebrile. Denied any cough, phlegm. PHYSICAL EXAMINATION: GENERAL: When I examined him this afternoon, he looked well and was clearly in no apparent respiratory distress. No pallor, jaundice, cyanosis or thyromegaly. No jugular venous distention or limb edema. VITAL SIGNS: His heart rate was 77, blood pressure 155/79, temperature 97.8, respiratory rate 20, and oxygen saturation was 94%. The rest of clinical exam is stable. ASSESSMENT: In summary, this is a 79-year-old male patient who was transferred from [facility] on account of being positive for COVID-19. He remains asymptomatic, hemodynamically stable and afebrile. He has multiple other medical problems including hypertension, benign prostatic hypertrophy, hyperlipidemia, hypothyroidism, sensorineural deafness, peripheral neuropathy, osteoarthritis as well as chronic kidney disease. PLAN: To again check his CBC, CMP, CRP and D-dimer. I did start him also on Lovenox. We will follow him closely and decide on further management accordingly. ABBIE BARLOW MD DR: BRENDEN/hamlet JOB#: [id number] / [id number]
[2019-12-13] MEDS: MELATONIN 3 MG TABLET PO SCH (22:03)
[2019-12-13] MEDS: ACETAMINOPHEN 325 MG TABLET PO PRN (22:03)
[2019-12-13] MEDS: risperiDONE 1 MG TABLET. PO SCH (22:03)
[2019-12-13] MEDS: traZODone 100 MG TABLET. PO SCH (22:04)
[2019-12-13] MEDS: DIVALPROEX ER 500 MG TAB.ER.24H PO SCH (22:04)
[2019-12-13 23:37] VITALS: BP 123/62
--- NOTE | 2019-12-14 00:32 | NUR ---
Pt pleasant and smiling, watching television in bed at start of shift. Pt denies pain; fully oriented. He looks forward to getting new dentures in a couple weeks. Pt on pureed diet until new dentures can be acquired. Will continue to monitor.
[2019-12-14] MEDS: LEVOTHYROXINE 25 MCG TABLET. PO SCH (05:38)
[2019-12-14 06:23] VITALS: BP 127/93
[2019-12-14 07:02] LABS: HEMATOCRIT 36.3 % (39.0-53.0); HEMOGLOBIN 11.8 g/dL (13.0-17.5); RED BLOOD COUNT 3.92 x10^6/uL (4.30-5.70); RED CELL DISTRIBUTION WIDTH 13.4 % (11.5-14.5); WHITE BLOOD COUNT 3.8 x10^3/uL (4.0-11.0)
[2019-12-14 07:21] LABS: ALBUMIN 2.2 g/dL (3.4-5.0); ALBUMIN/GLOBULIN RATIO 0.6 (1.0-1.7); C REACTIVE PROTEIN 5.8 mg/L (0-3.3); CALCIUM 8.4 mg/dL (8.5-10.1); CREATININE 1.8 mg/dL (0.7-1.3); GFR 36.6; POTASSIUM 4.5 mmol/L (3.5-5.1); TOTAL BILIRUBIN 0.1 mg/dL (0.2-1.0); TOTAL PROTEIN 5.9 g/dL (6.4-8.2)
[2019-12-14] MEDS: risperiDONE 0.5 MG TABLET. PO SCH (08:31)
[2019-12-14 15:49] VITALS: BP 134/74
--- NOTE | 2019-12-14 15:54 | PN ---
DATE: 12/14/2019 SUBJECTIVE: The patient is a 79-year-old male patient who tested positive for COVID-19, was transferred from [facility]. He continues to be completely asymptomatic, afebrile, hemodynamically stable. PHYSICAL EXAMINATION: GENERAL: When I examined him this afternoon, he looked well and was clearly in no apparent respiratory distress. No pallor, jaundice, cyanosis or thyromegaly. No jugular venous distention. No limb edema. VITAL SIGNS: Heart rate was 77, blood pressure was 127/93, temperature was 97, respiratory rate was 20, and oxygen saturation was 100% on room air. HEAD, EYES, EARS, NOSE AND THROAT: Showed normocephalic, atraumatic. NECK: Supple. HEART: Showed normal first and second heart sounds. No gallop or murmur. CHEST: Clear to auscultation. No crepitation or rhonchi. ABDOMEN: Distended, soft, nontender. NEUROLOGIC: He is demented, but however, he is grossly intact. He ambulates without assistance or assistive devices. His intake over the last 24 hours was 1580, no output was recorded. LABORATORY DATA: His lab work this morning showed a white cell count 3800, hemoglobin 12, hematocrit 36, MCV 93, and platelet count 217,000. His chemistry showed a serum sodium 139, potassium 4.5, chloride 107, bicarbonate 27, anion gap of 5, BUN 22, creatinine 1.8, estimated GFR was 36 mL per minute. His glucose was 92, calcium was 8.4. Total bilirubin, AST, ALT, alkaline phosphatase were normal. Total protein was 5.9, albumin was 2.2. His C-reactive protein was 5.8 mg per liter and his D-dimer was 0.6 mg/liter. ASSESSMENT: 1. This is a 79-year-old male patient who was transferred from [facility] on account of being positive for COVID-19. 2. He remained asymptomatic, hemodynamically stable, afebrile, and his kidney function and liver enzymes are all normal. His white cell count is somewhat on the lower side. 3. He has multiple medical problems including: A. Hypertension. B. Benign prostatic hypertrophy. C. Hyperlipidemia. D. Hypothyroidism. E. Sensorineural deafness. F. Peripheral neuropathy. G. Osteoarthritis. H. Chronic kidney disease. PLAN: To continue with all his current medication. We will continue to follow him closely. ABBIE BARLOW MD DR: BRENDEN/hamlet JOB#: [id number] / [id number]
[2019-12-14] MEDS: ENOXAPARIN 40 MG/0.4 ML SYRINGE. SQ SCH (16:57)
[2019-12-14 20:24] VITALS: BP_SYST 124; BP_SYST 152; BP_DIAS 92
[2019-12-14] MEDS: DIVALPROEX ER 500 MG TAB.ER.24H PO SCH (21:02)
[2019-12-14] MEDS: MELATONIN 3 MG TABLET PO SCH (21:02)
[2019-12-14] MEDS: traZODone 100 MG TABLET. PO SCH (21:02)
[2019-12-14] MEDS: risperiDONE 1 MG TABLET. PO SCH (21:02)
[2019-12-14 23:41] VITALS: BP 121/62
[2019-12-15 06:08] VITALS: BP 125/66
[2019-12-15] MEDS: LEVOTHYROXINE 25 MCG TABLET. PO SCH (06:41)
[2019-12-15] MEDS: SCOPOLAMINE 1.5MG PATCH. TD SCH (09:23)
[2019-12-15] MEDS: risperiDONE 0.5 MG TABLET. PO SCH (09:23)
[2019-12-15 10:52] VITALS: BP 134/66
[2019-12-15 15:20] VITALS: BP 146/71
--- NOTE | 2019-12-15 16:23 | PN ---
DATE: 12/15/2019 SUBJECTIVE: The patient is sitting on the edge of the bed comfortably in no apparent distress. On questioning, denied any complaint. The nursing staff did not voice any concern, stated that he had uneventful night. PHYSICAL EXAMINATION: GENERAL: When I examined him, he looked pale, no jaundice, cyanosis or thyromegaly. No jugular venous distention. No limb edema. VITAL SIGNS: His heart rate was 88, blood pressure was 134/66, temperature 97.6, respiratory rate was 18, and oxygen saturation was 92% on room air. The rest of clinical exam is stable, has not really changed. His intake over the last 24 hours was 1970, no output was recorded. LABORATORY DATA: As of yesterday, his white cell count was 3800, hemoglobin 12, hematocrit 36, MCV 93, platelet count of 217,000. His chemistry showed that his BUN is 22, creatinine 1.8. His liver enzymes are normal and his D-dimer was slightly elevated at 0.6. ASSESSMENT: 1. This is a 79-year-old male patient who was transferred from [facility] on account of being positive for COVID-19. Today, he remained asymptomatic, hemodynamically stable and afebrile. His kidney function is stable and liver enzymes are normal. His white cell count is somewhat in the lower side. He has multiple other medical problems including: A. Hypertension. B. Benign prostatic hypertrophy. C. Hyperlipidemia. D. Hypothyroidism. E. Sensorineural deafness. F. Peripheral neuropathy. G. Osteoarthritis. H. Chronic kidney disease. PLAN: To continue with all his current medication. We will continue to follow him closely. ABBIE BARLOW MD DR: BRENDEN/hamlet JOB#: [id number] / [id number]
[2019-12-15] MEDS: ENOXAPARIN 40 MG/0.4 ML SYRINGE. SQ SCH (17:02)
[2019-12-15 19:40] VITALS: BP 131/71
[2019-12-15] MEDS: DIVALPROEX ER 500 MG TAB.ER.24H PO SCH (20:39)
[2019-12-15] MEDS: traZODone 100 MG TABLET. PO SCH (20:39)
[2019-12-15] MEDS: MELATONIN 3 MG TABLET PO SCH (20:39)
[2019-12-15] MEDS: risperiDONE 1 MG TABLET. PO SCH (20:39)
[2019-12-16 05:44] VITALS: BP 127/81
[2019-12-16] MEDS: LEVOTHYROXINE 25 MCG TABLET. PO SCH (06:02)
[2019-12-16] MEDS: risperiDONE 0.5 MG TABLET. PO SCH (08:44)
[2019-12-16 10:54] VITALS: BP 111/72
[2019-12-16 14:20] VITALS: BP 133/58
[2019-12-16] MEDS: NEOMY/BACITR/POLYMYXIN OINT PACKET. TP SCH ×2 (14:30→20:38)
[2019-12-16] MEDS: ENOXAPARIN 40 MG/0.4 ML SYRINGE. SQ SCH (17:05)
[2019-12-16 19:18] VITALS: BP 151/74
--- NOTE | 2019-12-16 19:21 | PN ---
DATE: 12/16/2019 SUBJECTIVE: The patient is sitting at the edge of the bed, eating his lunch comfortably, in no apparent respiratory distress. He denied any complaint. The nursing staff did not voice any concern and stated that he has an uneventful night, he remained completely asymptomatic. PHYSICAL EXAMINATION: GENERAL: When I examined him, he was slightly pale, but no jaundice, cyanosis or thyromegaly. No jugular venous distention. No lower limb edema. VITAL SIGNS: Her heart rate was 78, blood pressure was 111/72, temperature 97.8, respiratory rate 20, and oxygen saturation was 94%. HEAD, EYES, EARS, NOSE AND THROAT: Showed normocephalic, atraumatic. NECK: Supple. HEART: Showed normal first and second heart sounds. No gallop or murmur. CHEST: Clear to auscultation. No crepitation or rhonchi. ABDOMEN: Distended, nontender. No guarding or rigidity. No organomegaly. All hernial orifices intact. Bowel sounds normal. NEUROLOGIC: He is awake, alert, responding appropriately. All his cranial nerves are intact. He moves extremities without difficulty, ambulates without assistance or assistive devices. His intake over the last 24 hours was 1200, no output was recorded. LABORATORY DATA: No lab work is done today. ASSESSMENT: 1. This is a 79-year-old male patient who was transferred from [facility] on account of being positive for COVID-19. He remains hemodynamically stable and afebrile. His kidney function is stable and liver enzymes are normal. His white cell count is somewhat in the lower side. 2. He has multiple other medical problems including: A. Hypertension. B. Benign prostatic hypertrophy. C. Hyperlipidemia. D. Hypothyroidism. D. Sensorineural deafness. F. Peripheral neuropathy. G. Osteoarthritis. H. Chronic kidney disease. PLAN: To continue with all his current medications. We will continue to follow him closely. ABBIE BARLOW MD DR: BRENDEN/hamlet JOB#: [id number] / [id number]
[2019-12-16] MEDS: MELATONIN 3 MG TABLET PO SCH (20:37)
[2019-12-16] MEDS: risperiDONE 1 MG TABLET. PO SCH (20:37)
[2019-12-16] MEDS: DIVALPROEX ER 500 MG TAB.ER.24H PO SCH (20:37)
[2019-12-16] MEDS: traZODone 100 MG TABLET. PO SCH (20:37)
[2019-12-16 22:18] VITALS: BP 125/64
[2019-12-17] MEDS: LEVOTHYROXINE 25 MCG TABLET. PO SCH (05:45)
[2019-12-17 06:20] VITALS: BP 126/77
[2019-12-17 08:44] LABS: BASO % 0 % (0-3); EOS % 1 % (0-3); HEMATOCRIT 35.5 % (39.0-53.0); HEMOGLOBIN 11.7 g/dL (13.0-17.5); LYMPH % 19 % (24-48); MEAN CORPUSCULAR HEMOGLOBIN 31 pg (25-35); MEAN CORPUSCULAR HGB CONC 33 g/dL (31-37); MEAN CORPUSCULAR VOLUME 93 fL (79-100); MONO # 0.8 x10^3/uL (0.0-1.1); MONO % 14 % (0-9); NEUT # 3.5 x10^3uL (1.8-7.7); NEUT % 66 % (31-73); PLATELET COUNT 222 x10^3/uL (140-400); RED BLOOD COUNT 3.82 x10^6/uL (4.30-5.70); RED CELL DISTRIBUTION WIDTH 13.2 % (11.5-14.5); WHITE BLOOD COUNT 5.4 x10^3/uL (4.0-11.0)
[2019-12-17 08:58] LABS: ALBUMIN 2.1 g/dL (3.4-5.0); ALBUMIN/GLOBULIN RATIO 0.6 (1.0-1.7); CALCIUM 8.2 mg/dL (8.5-10.1); CREATININE 1.6 mg/dL (0.7-1.3); GFR 41.9; POTASSIUM 4.3 mmol/L (3.5-5.1); TOTAL BILIRUBIN 0.2 mg/dL (0.2-1.0); TOTAL PROTEIN 5.9 g/dL (6.4-8.2)
[2019-12-17] MEDS: NEOMY/BACITR/POLYMYXIN OINT PACKET. TP SCH ×2 (10:09→20:38)
[2019-12-17] MEDS: risperiDONE 0.5 MG TABLET. PO SCH (10:09)
[2019-12-17] MEDS: ACETAMINOPHEN 325 MG TABLET PO PRN (10:09)
[2019-12-17 10:20] VITALS: BP 115/64
[2019-12-17 13:06] LABS: % BANDS 11 % (0-9); % LYMPHS 18 % (24-48); % MONOS 15 % (0-10); % MYELOS 3 % (0-0); % SEGS 53 % (35-66)
[2019-12-17 13:08] LABS: PLT ESTIMATE ADEQUATE (ADEQUATE)
[2019-12-17 13:10] LABS: BURR CELLS FEW
[2019-12-17 15:39] VITALS: BP 110/66
--- NOTE | 2019-12-17 16:25 | NUR ---
Wound Care Wound Type/Assessment: patient has a left index finger intact blister, the area was cleaned, measured and skin prep applied with a bandaid. the finger is swollen and reddened Recommended Referrals: Will have Wound care ROULETTE DEALER to assess tomorrow.
[2019-12-17] MEDS: ENOXAPARIN 40 MG/0.4 ML SYRINGE. SQ SCH (18:34)
--- NOTE | 2019-12-17 18:48 | PN ---
DATE: 12/17/2019 SUBJECTIVE: The patient is resting, slightly propped up in bed, in no apparent distress. His left index finger is red and he has a large blister on the dorsal aspect of his index finger. Surprisingly, there is no tenderness. The fingernail itself is normal. The patient himself not complaining of any pain. He remained hemodynamically stable and afebrile. PHYSICAL EXAMINATION: GENERAL: When I examined him, he looked well, slightly pale. No jaundice, cyanosis or thyromegaly. No jugular venous distention. No limb edema. VITAL SIGNS: Her heart rate was 74, blood pressure 115/64, temperature 97.2, respiratory rate 20, and oxygen saturation was 95%. HEAD, EYES, EARS, NOSE AND THROAT: Showed normocephalic, atraumatic. NECK: Supple. HEART: Showed normal first and second heart sounds. No gallop or murmur. CHEST: Clear to auscultation. No crepitation or rhonchi. ABDOMEN: Distended, soft, nontender. NEUROLOGIC: He is awake, alert, responding appropriately. All cranial nerves intact. He moves extremities without difficulty. He ambulates without assistance or assistive devices. His intake over the last 24 hours was 1680, no output was recorded. LABORATORY DATA: As of this morning, his white cell count was 5400, hemoglobin 11.7, hematocrit 36, MCV 93, and platelet count 222,000 with normal manual differential. His chemistry showed a serum sodium 138, potassium 4.3, chloride 106, bicarbonate 23, anion gap of 9, BUN 23, creatinine 1.6, estimated GFR was 42 mL per minute. His glucose was 87, calcium was 8.2. Total bilirubin, AST, ALT, alkaline phosphatase were normal. Total protein was 5.9, albumin was 2.1. His D-dimer was slightly elevated at 0.6 mg/dL. ASSESSMENT: 1. This is a 79-year-old male patient who again was transferred from [facility] on account of being positive for COVID-19; however, he remained hemodynamically stable and afebrile. Actually, his kidney function has slightly improved. His creatinine came down from 1.8 to 1.6. His white cell count and liver enzymes are all within normal range. 2. He has multiple other medical problems including: A. Hypertension. B. Benign prostatic hypertrophy. C. Hyperlipidemia. D. Hypothyroidism. E. Sensorineural deafness. F. Peripheral neuropathy. G. Osteoarthritis. H. Acute on chronic kidney injury. 3. The patient has erythema and a large blister on the dorsal aspect of the left index finger. Plan is to consult the wound care team. I would also start him empirically on oral Keflex 500 mg 3 times a day, continued all other medication. He will be swabbed again for COVID-19 tomorrow, 12/18/2019. ABBIE BARLOW MD DR: BRENDEN/hamlet JOB#: [id number] / [id number]
[2019-12-17 19:50] VITALS: BP 151/74
[2019-12-17] MEDS: traZODone 100 MG TABLET. PO SCH (20:38)
[2019-12-17] MEDS: risperiDONE 1 MG TABLET. PO SCH (20:38)
[2019-12-17] MEDS: LACTOBACILLUS RHAMNOSUS GG 1 CAPSULE. PO SCH (20:38)
[2019-12-17] MEDS: MELATONIN 3 MG TABLET PO SCH (20:38)
[2019-12-17] MEDS: CEPHALEXIN 250 MG CAPSULE PO SCH (20:38)
[2019-12-17] MEDS: DIVALPROEX ER 500 MG TAB.ER.24H PO SCH (20:38)
[2019-12-17 22:30] VITALS: BP 117/64
[2019-12-18] MEDS: LEVOTHYROXINE 25 MCG TABLET. PO SCH (05:58)
[2019-12-18 06:05] VITALS: BP 113/64
[2019-12-18] MEDS: NEOMY/BACITR/POLYMYXIN OINT PACKET. TP SCH ×2 (08:26→20:50)
[2019-12-18] MEDS: LACTOBACILLUS RHAMNOSUS GG 1 CAPSULE. PO SCH ×2 (08:26→20:49)
[2019-12-18] MEDS: risperiDONE 0.5 MG TABLET. PO SCH (08:26)
[2019-12-18] MEDS: CEPHALEXIN 250 MG CAPSULE PO SCH ×2 (08:26→20:49)
[2019-12-18] MEDS: SCOPOLAMINE 1.5MG PATCH. TD SCH (08:28)
[2019-12-18 10:20] VITALS: BP 117/61
--- NOTE | 2019-12-18 14:01 | PN ---
DATE: 12/18/2019 ATTENDING PHYSICIAN: Dr. Guillory and Dr. Delatorre. SUBJECTIVE: No new complaints. We had a very nystatin conversation regarding his previous jobs in the [employer] as well as with the [employer]. He tells me he is also from [place]. We had some common friends we visited about. There is no shortness of breath. He has a large blood blister on his left index. Fingernail is normal. He probably jammed it in the doorway. He is not complaining of any symptoms. OBJECTIVE FINDINGS: VITAL SIGNS: Blood pressure today is 117/61, pulse is 78 and regular, temperature 97.6 degrees Fahrenheit, oxygen saturation 94% on room air. HEENT: Head is without trauma. Pupils are reactive. Sclerae nonicteric. Oropharynx clear. NECK: Supple, no bruits. LUNGS: Good breath sounds. CARDIOVASCULAR: Showed regular heart tones. ABDOMEN: Soft, nontender, no organomegaly. NEUROLOGIC: Alert. No focal deficits. Speech is fluent. SKIN: Warm and dry. PERTINENT LABORATORY DATA: Hemoglobin yesterday was 11.7 grams, normal white count. Electrolytes; BUN and creatinine were within normal range for him. Creatinine is 1.6, which is his baseline. He had a repeat swab today for coronavirus. ASSESSMENT: 1. A 79-year-old gentleman with exposure to coronavirus. He is asymptomatic. At this time, he had positive swabs. 2. Essential hypertension. 3. Benign prostatic hypertrophy. 4. Memory loss. 5. Chronic kidney disease stage 3. 6. Peripheral neuropathy. 7. Recent minor trauma to the index finger of the left hand. PLAN: 1. Wound care. 2. Continue home medications. 3. He will be swabbed again today for COVID-19. 4. Placement. PETE DELATORRE MD DR: PERRY/hamlet JOB#: [id number] / [id number] ABBIE Michael MD
[2019-12-18 14:16] VITALS: BP 141/72
--- NOTE | 2019-12-18 15:25 | NUR ---
Wound Care COVID + Proper PPE worn for assessment Wound Type/Assessment: Left index finger intact blister, SCOTT Warren assessed and is going to order for Epson salt soaks. Treatment Recommendations/Plan: See SCOTT Warren's progress note. Wound Care will continue to f/u for changes.
[2019-12-18] MEDS: ENOXAPARIN 40 MG/0.4 ML SYRINGE. SQ SCH (16:48)
--- NOTE | 2019-12-18 16:53 | PDOC2 ---
CONSULT Date of Admission DATE: 12/18/19 TIME: 16:40 Reason for Consult: Infection of the left 2nd finger Referring Physician: Dr Mantilla Chief Complaint Left 2nd finger paronychial infection Source: Chart review, Patient Problem List Paronychia of left 2nd finger, index History of Present Illness Pt admitted to [address] [place] [address] following testing positive for COVID. Pt asymptotic and was admitted for observation and quarantine. Pt states prior to admission, he used an emery board on his fingernails and knicked his cuticle bed of his left index finger. A blister formed and has gradually worsened over the last several days. Pt c/o decreased dexterity and pain with palpation. Pt denies underlying DM or difficulty with wound healing in the past. Past Medical History A. Hypertension. B. Benign prostatic hypertrophy. C. Hyperlipidemia. D. ____. E. Melanoma. F. Peripheral neuropathy. G. Sensorineural deafness. H. History of chronic kidney disease. I. Diverticulitis. Past Surgical History: Appendectomy, Total hip replacement (Bilateral) Smoke: No ALCOHOL: none Drugs: None Current Medications Current Medications Acetaminophen (Tylenol) 650 mg PRN Q6HRS PRN PO pain/temp Last administered on 12/17/19at 10:09; Start 12/12/19 at 15:15 Divalproex Sodium (Depakote Er) 1,000 mg QHS PO Last administered on 12/17/19at 20:38; Start 12/12/19 at 21:00 Levothyroxine Sodium (Synthroid) 25 mcg DAILY06 PO Last administered on 12/18/19at 05:58; Start 12/13/19 at 06:00 Al Hydroxide/Mg Hydroxide (Mylanta Plus Xs) 15 ml PRN AFTMEALHC PRN PO DYSPEPSIA; Start 12/12/19 at 15:15 Melatonin (Melatonin) 6 mg HS PO Last administered on 12/17/19at 20:38; Start 12/12/19 at 21:00 Olanzapine (ZyPREXA) 5 mg PRN BID PRN PO ANXIETY/AGITATION; Start 12/13/19 at 09:00 Risperidone (RisperDAL) 0.5 mg DAILY PO Last administered on 12/18/19at 08:26; Start 12/13/19 at 09:00 Risperidone (RisperDAL) 1 mg QHS PO Last administered on 12/17/19at 20:38; Start 12/12/19 at 21:00 Scopolamine (Transderm-Scop) 1 patch Q3DAYS TD Last administered on 12/18/19at 08:28; Start 12/15/19 at 09:00 Trazodone HCl (Desyrel) 50 mg PRN QHS PRN PO insomnia, 2nd dose; Start 12/12/19 at 15:15 Trazodone HCl (Desyrel) 100 mg QHS PO Last administered on 12/17/19at 20:38; Start 12/12/19 at 21:00 Magnesium Hydroxide (Milk Of Magnesia) 2,400 mg PRN QHS PRN PO CONSTIPATION; Start 12/12/19 at 15:15 Multi-Ingredient Ointment (Analgesic Odessa) 1 anna PRN QID PRN TP MUSCLE PAIN; Start 12/12/19 at 15:15 Enoxaparin Sodium (Lovenox 40mg Syringe) 40 mg Q24H SQ Last administered on 12/17/19at 18:34; Start 12/13/19 at 18:00 Neomycin/ Polymyxin/ Bacitracin (Triple Antibiotic Ointment) 1 pkt BID TP Last administered on 12/18/19at 08:26; Start 12/16/19 at 14:30 Cephalexin HCl (Keflex) 500 mg BID PO Last administered on 12/18/19at 08:26; Start 12/17/19 at 21:00 Lactobacillus Rhamnosus (Culturelle) 1 cap BID PO Last administered on 12/18/19at 08:26; Start 12/17/19 at 21:00 Active Scripts Active Reported Trazodone Hcl 100 Mg Tablet 100 Mg PO QHS Trazodone Hcl 50 Mg Tablet 50 Mg PO PRN QHS PRN Risperdal (Risperidone) 1 Mg Tablet 1 Mg PO QHS Transderm-Scop (Scopolamine) 1 Each Patch.td72 1 Each TD Q3DAYS Analgesic [place]essa (Methyl Salicylate/Menthol) 28 Gm Oint...g. 1 Anna TP PRN QID PRN Melatonin 3 Mg Tablet 6 Mg PO HS Milk Of Magnesia (Magnesium Hydroxide) 2,400 Mg/10 Ml Oral.susp 2,400 Mg PO PRN QHS PRN Mylanta Maximum Strength Liq (Mag Hydrox/Aluminum Hyd/Simeth) 355 Ml Oral.susp 15 Ml PO PRN AFTMEALHC PRN Depakote Er (Divalproex Sodium) 500 Mg Tab.er.24h 1,000 Mg PO QHS Tylenol (Acetaminophen) 325 Mg Tablet 650 Mg PO PRN Q6HRS PRN Levothyroxine Sodium 25 Mcg Tablet 25 Mcg PO DAILY06 Risperidone 0.5 Mg Tablet 0.5 Mg PO DAILY Olanzapine 5 Mg Tablet 1 Tab PO PRN BID PRN Allergies: Coded Allergies: prednisolone (Verified Allergy, Mild, 11/20/19) General: YES: Appetite (Pt states he has been eating and drinking well.); No: Chills, Fatigue PSYCHOLOGICAL ROS: No: Anxiety, Depression, Hostility, Sleep disturbances HEENT: No: Heacaches Respiratory: No: Cough, Orthopnea, Shortness of breath, SOB with excertion Cardiovascular: No: Chest Pain, Orthopnea, Edema Gastrointestinal: No: Nausea, Vomiting, Diarrhea, Constipation Neurological: YES: Memory Loss; No: Behavorial Changes, Headaches Skin: YES: Skin Lesion Changes (left index finger) General: Alert, Oriented X3, No acute distress HEENT: Atraumatic, EOMI Lungs: Clear to auscultation, Normal air movement Abdomen: Normal bowel sounds, Soft, No tenderness Skin: No significant lesion (Left second finger with erythema, edema and blood/pus filled blister to from distal aspect to MIP. Area cleansed. 18 gauge needle used to open bulla. Copious serosanguineous draiange removed with gentle palpation. Cx obtained. Pt denied painful symptoms with procedure. Bandaid applied. ) VITALS Vital Signs Date Time Temp Pulse Resp B/P (MAP) Pulse Ox O2 Delivery O2 Flow Rate FiO2 12/18/19 14:16 98.5 75 20 141/72 (95) 97 Room Air Labs Laboratory Tests Test 12/17/19 07:21 White Blood Count 5.4 x10^3/uL (4.0-11.0) Red Blood Count 3.82 x10^6/uL (4.30-5.70) Hemoglobin 11.7 g/dL (13.0-17.5) Hematocrit 35.5 % (39.0-53.0) Mean Corpuscular Volume 93 fL (79-100) Mean Corpuscular Hemoglobin 31 pg (25-35) Mean Corpuscular Hemoglobin Concent 33 g/dL (31-37) Red Cell Distribution Width 13.2 % (11.5-14.5) Platelet Count 222 x10^3/uL (140-400) Neutrophils (%) (Auto) 66 % (31-73) Lymphocytes (%) (Auto) 19 % (24-48) Monocytes (%) (Auto) 14 % (0-9) Eosinophils (%) (Auto) 1 % (0-3) Basophils (%) (Auto) 0 % (0-3) Neutrophils # (Auto) 3.5 x10^3uL (1.8-7.7) Lymphocytes # (Auto) 1.0 x10^3/uL (1.0-4.8) Monocytes # (Auto) 0.8 x10^3/uL (0.0-1.1) Eosinophils # (Auto) 0.0 x10^3/uL (0.0-0.7) Basophils # (Auto) 0.0 x10^3/uL (0.0-0.2) Segmented Neutrophils % 53 % (35-66) Band Neutrophils % 11 % (0-9) Lymphocytes % 18 % (24-48) Monocytes % 15 % (0-10) Myelocytes % 3 % (0-0) Platelet Estimate Adequate (ADEQUATE) [place] Cells Few Sodium Level 138 mmol/L (136-145) Potassium Level 4.3 mmol/L (3.5-5.1) Chloride Level 106 mmol/L (98-107) Carbon Dioxide Level 23 mmol/L (21-32) Anion Gap 9 (6-14) Blood Urea Nitrogen 23 mg/dL (8-26) Creatinine 1.6 mg/dL (0.7-1.3) Estimated GFR (Cockcroft-Gault) 41.9 BUN/Creatinine Ratio 14 (6-20) Glucose Level 87 mg/dL (70-99) Calcium Level 8.2 mg/dL (8.5-10.1) Total Bilirubin 0.2 mg/dL (0.2-1.0) Aspartate Amino Transf (AST/SGOT) 18 U/L (15-37) Alanine Aminotransferase (ALT/SGPT) 15 U/L (16-63) Alkaline Phosphatase 54 U/L (46-116) Total Protein 5.9 g/dL (6.4-8.2) Albumin 2.1 g/dL (3.4-5.0) Albumin/Globulin Ratio 0.6 (1.0-1.7) Thyroid Stimulating Hormone (TSH) 1.044 uIU/mL (0.358-3.740) Assessment/Plan Paronychia of left 2nd finger - Bulla lanced at bedside, copious serosanguineous drainage removed with gentle palpation. - Cx sent for C and S - Epsom Salt soaks tid for 20 minutes - Pt currently on Keflex 500mg bid, continue till cx resulted. Apply bandaid for protection following soaks. - Encourage pt to keep affected hand elevated as much as possible. RAMYA MCGEE [employer] SHOVELMAN Dec 18, 2019 16:53
[2019-12-18 19:54] VITALS: BP 134/69
[2019-12-18] MEDS: MELATONIN 3 MG TABLET PO SCH (20:49)
[2019-12-18] MEDS: DIVALPROEX ER 500 MG TAB.ER.24H PO SCH (20:50)
[2019-12-18] MEDS: risperiDONE 1 MG TABLET. PO SCH (20:50)
[2019-12-18] MEDS: traZODone 100 MG TABLET. PO SCH (20:50)
[2019-12-18 22:25] VITALS: BP 108/71
[2019-12-19 05:56] VITALS: BP 120/61
[2019-12-19] MEDS: LEVOTHYROXINE 25 MCG TABLET. PO SCH (06:13)
[2019-12-19] MEDS: CEPHALEXIN 250 MG CAPSULE PO SCH ×2 (09:23→20:00)
[2019-12-19] MEDS: risperiDONE 0.5 MG TABLET. PO SCH (09:23)
[2019-12-19] MEDS: LACTOBACILLUS RHAMNOSUS GG 1 CAPSULE. PO SCH ×2 (09:23→20:00)
[2019-12-19] MEDS: NEOMY/BACITR/POLYMYXIN OINT PACKET. TP SCH ×2 (09:23→20:01)
[2019-12-19 11:00] VITALS: BP 119/66
[2019-12-19] MEDS ORDERED: METHYL SALICYLATE/MENTHOL TOPICAL OINTMENT 57GM TUBE. TP PRN (14:46)
[2019-12-19 15:00] VITALS: BP 120/68
[2019-12-19] MEDS: ENOXAPARIN 40 MG/0.4 ML SYRINGE. SQ SCH (17:26)
[2019-12-19 19:24] VITALS: BP 119/71
[2019-12-19] MEDS: risperiDONE 1 MG TABLET. PO SCH (20:00)
[2019-12-19] MEDS: DIVALPROEX ER 500 MG TAB.ER.24H PO SCH (20:00)
[2019-12-19] MEDS: traZODone 100 MG TABLET. PO SCH (20:00)
[2019-12-19] MEDS: MELATONIN 3 MG TABLET PO SCH (20:00)
--- NOTE | 2019-12-19 21:38 | PN ---
DATE: 12/19/2019 ATTENDING PHYSICIAN: Dr. Guillory. SUBJECTIVE: The patient is doing well. He had no complaints. He is totally asymptomatic. We had another nice conversation regarding what he did in the past and his life experience. OBJECTIVE FINDINGS: The patient is afebrile. FINDINGS: VITAL SIGNS: His blood pressure today is 129/68 mmHg, temperature 97.3 degrees Fahrenheit, pulse 60 and regular, oxygen saturation 95% on room air. HEENT: Head is without trauma. Pupils are reactive. Sclerae nonicteric. Oropharynx clear. NECK: Supple, no bruits. LUNGS: Otherwise clear. CARDIOVASCULAR: Showed regular heart tones. No gallops. ABDOMEN: Soft, nontender, no organomegaly, normal bowel sounds. NEUROLOGIC: Alert. No focal deficits. Speech is fluent. SKIN: Warm and dry. LABORATORY DATA: Reviewed. He had a repeat COVID swab yesterday, is still pending. ASSESSMENT: 1. A 79-year-old gentleman with exposure to coronavirus. He is totally asymptomatic at this time. 2. Essential hypertension, currently normotensive. 3. Benign prostatic hypertrophy. 4. Memory loss, stable. 5. Chronic kidney disease stage 3. 6. Peripheral neuropathy. 7. Recent minor trauma at the index finger of the left hand. PLAN: 1. Wound care as ordered. 2. Home meds reviewed. 3. He was re-swabbed yesterday for COVID-19. This will be followed up. 4. Discharge planning. PETE DELATORRE MD DR: PERRY/hamlet JOB#: [id number] / [id number] marlon Guillory Dr.
[2019-12-19 23:20] VITALS: BP 101/57
--- NOTE | 2019-12-20 03:07 | NUR ---
Patient is in pleasant spirits. Calm, cooperative and compliant with assessments and medications taken whole. No agitation. Denies any pain or discomfort. Denies SI. Patient appears to be sleeping comfortably at present time. Will continue to monitor.
[2019-12-20] MEDS: LEVOTHYROXINE 25 MCG TABLET. PO SCH (05:16)
[2019-12-20 05:53] VITALS: BP 104/62
[2019-12-20] MEDS: CEPHALEXIN 250 MG CAPSULE PO SCH (07:46)
[2019-12-20] MEDS: risperiDONE 0.5 MG TABLET. PO SCH (07:47)
[2019-12-20] MEDS: NEOMY/BACITR/POLYMYXIN OINT PACKET. TP SCH ×2 (07:47→21:01)
[2019-12-20] MEDS: LACTOBACILLUS RHAMNOSUS GG 1 CAPSULE. PO SCH ×2 (07:47→21:01)
[2019-12-20 10:37] VITALS: BP 122/71
--- NOTE | 2019-12-20 13:46 | PN ---
DATE: 12/20/2019 ATTENDING PHYSICIAN: Dr. Guillory. SUBJECTIVE: Doing well. He is anxious to go home. He has no new complaints. He has been asymptomatic. He is afebrile. FINDINGS: VITAL SIGNS: Blood pressure today is 122/71 mmHg, oxygen saturation 98% on room air, temperature 97.2 degrees Fahrenheit, pulse 63 and regular. HEENT: Head is without trauma. Pupils are reactive. Sclerae nonicteric. Oropharynx clear. NECK: Supple. LUNGS: Otherwise clear. CARDIOVASCULAR: Showed regular heart tones. No gallops. ABDOMEN: Soft, nontender, no organomegaly. Bowel sounds are normoactive. EXTREMITIES: Showed no cyanosis or edema. NEUROLOGIC: Focally intact. Speech is fluent. SKIN: Warm and dry. Repeat COVID-19 swab on 12/18/2019 returned again positive for coronavirus. ASSESSMENT: 1. A 79-year-old gentleman with positive exposure to coronavirus. He has been testing positive on the repeat swab. He is totally asymptomatic at this time. 2. Essential hypertension. 3. Benign prostatic hypertrophy. 4. Memory loss, improved. 5. Chronic kidney disease stage III. 6. Peripheral neuropathy. PLAN: 1. Continue to manage on the COVID unit. 2. Quarantine precautions. 3. Home meds reviewed. 4. Tentative discharge when the [facility] say that he can go home. He is once again asymptomatic totally. PETE DELATORRE MD DR: PERRY/hamlet JOB#: [id number] / [id number]
[2019-12-20 14:56] VITALS: BP 121/62
--- NOTE | 2019-12-20 16:08 | NUR ---
PATIENT IS NICE AND PLEASANT THIS AM UPON ASSESSMENT, DENIES COUGH, DENIES N/V/D OR ANY ABDOMINAL DISCOMFORT AND LOSS OF APPETITE. PT IS A/O X4, INDEPENDENT WITH ADLS. PT HAS BLISTER ON L INDEX FINGER, ANTIBIOTIC OINTMENT APPLIED TO HIS LEFT INDEX FINGER RECOMMENDED BY WOUND CARE NURSE, PATIENT REQUESTED TO COVER IT WITH A BANDAID, PT WAS ASSISTED WITH PUTTING A BANDAID OVER THE INDEX FINGER. TM.
--- NOTE | 2019-12-20 17:06 | NUR ---
wound care patient seen for f/u of wound care consult. see wound assessment. patient still has some creamy serosanguineous drainage, that is draining from wound. patients left index finger is reddened and edematous. the area was cleaned, and redressed with KANWAL with Xeroform gauze with kerlix and tape. Notified SCOTT aWrren of the culture result and the assessment of the finger. She ordered to change the antibiotics from Keflex to Bactrim. this order was changed at this time. she stated she would be up to assess the finger on Monday12/23/2019. LESLIE Sams notified about the POC and to page wound care over the weekend if the wound gets worse, and wound care will continue to f/u at this time.
[2019-12-20] MEDS: ENOXAPARIN 40 MG/0.4 ML SYRINGE. SQ SCH (17:07)
[2019-12-20 19:00] VITALS: BP 118/61
[2019-12-20] MEDS: traZODone 100 MG TABLET. PO SCH (21:00)
[2019-12-20] MEDS: SMZ/TMP 800/160MG TABLET. PO SCH (21:00)
[2019-12-20] MEDS: DIVALPROEX ER 500 MG TAB.ER.24H PO SCH (21:00)
[2019-12-20] MEDS: ACETAMINOPHEN 325 MG TABLET PO PRN (21:01)
[2019-12-20] MEDS: risperiDONE 1 MG TABLET. PO SCH (21:01)
[2019-12-20] MEDS: MELATONIN 3 MG TABLET PO SCH (21:01)
[2019-12-20 22:26] VITALS: BP 112/53
[2019-12-21 05:38] VITALS: BP 97/57
[2019-12-21] MEDS: LEVOTHYROXINE 25 MCG TABLET. PO SCH (06:25)
[2019-12-21] MEDS: risperiDONE 0.5 MG TABLET. PO SCH (08:45)
[2019-12-21] MEDS: LACTOBACILLUS RHAMNOSUS GG 1 CAPSULE. PO SCH ×2 (08:45→20:31)
[2019-12-21] MEDS: SMZ/TMP 800/160MG TABLET. PO SCH ×2 (08:45→20:31)
[2019-12-21] MEDS: NEOMY/BACITR/POLYMYXIN OINT PACKET. TP SCH ×2 (08:45→21:00)
[2019-12-21] MEDS: SCOPOLAMINE 1.5MG PATCH. TD SCH (08:47)
[2019-12-21 10:50] VITALS: BP 109/60
[2019-12-21 16:19] VITALS: BP 128/62
[2019-12-21] MEDS: ENOXAPARIN 40 MG/0.4 ML SYRINGE. SQ SCH (18:00)
[2019-12-21 19:36] VITALS: BP 133/61
[2019-12-21] MEDS: risperiDONE 1 MG TABLET. PO SCH (20:31)
[2019-12-21] MEDS: DIVALPROEX ER 500 MG TAB.ER.24H PO SCH (20:31)
[2019-12-21] MEDS: MELATONIN 3 MG TABLET PO SCH (20:31)
[2019-12-21] MEDS: ACETAMINOPHEN 325 MG TABLET PO PRN (20:31)
[2019-12-21] MEDS: traZODone 100 MG TABLET. PO SCH (20:31)
[2019-12-21 22:46] VITALS: BP 113/61
[2019-12-22 05:44] VITALS: BP 103/64
[2019-12-22] MEDS: LEVOTHYROXINE 25 MCG TABLET. PO SCH (06:00)
--- NOTE | 2019-12-22 06:16 | NUR ---
Pt is pleasant, cooperative and oriented; occasionally forgetful. Pt c/o minimal pain in his left finger, 4/10 and declines pain medication. Pt slept soundly through the night. Will continue to monitor.
[2019-12-22] MEDS: LACTOBACILLUS RHAMNOSUS GG 1 CAPSULE. PO SCH ×2 (08:30→20:34)
[2019-12-22] MEDS: SMZ/TMP 800/160MG TABLET. PO SCH ×2 (08:30→20:34)
[2019-12-22] MEDS: NEOMY/BACITR/POLYMYXIN OINT PACKET. TP SCH ×2 (08:30→20:35)
[2019-12-22] MEDS: risperiDONE 0.5 MG TABLET. PO SCH (08:30)
--- NOTE | 2019-12-22 10:05 | PN ---
DATE: 12/21/2019 ATTENDING PHYSICIAN: Dr. Guillory. SUBJECTIVE: The patient has no new complaints. He is very calm. He has accepted the fact that he will be here for several more days despite he wants to go home. OBJECTIVE FINDINGS: VITAL SIGNS: Temperature today is 97.6 degrees Fahrenheit, blood pressure 110/60 mmHg, oxygen saturation 95% on room air, pulse is regular. HEENT: Head is without trauma. Pupils are reactive. Sclerae nonicteric. Oropharynx clear. NECK: Supple. LUNGS: Entirely clear. CARDIOVASCULAR: Showed regular heart tones. No gallops. ABDOMEN: Soft, scaphoid, nontender, no organomegaly. EXTREMITIES: Showed no cyanosis or edema. NEUROLOGIC: Focally intact. Speech is fluent. SKIN: Warm and dry. ASSESSMENT: 1. A 79-year-old gentleman with positive exposure to coronavirus. He is totally asymptomatic despite the fact he was tested positive twice. 2. Benign prostatic hypertrophy, stable. 3. Essential hypertension. 4. Memory loss, improved. 5. Chronic kidney disease stage 3. 6. Peripheral neuropathy. PLAN: 1. Continue to quarantine on the COVID unit. 2. Home meds reviewed. 3. Tentative discharge plans when it is safe and legal for him to go home. PETE DELATORRE MD DR: PERRY/hamlet JOB#: [id number] / [id number]
[2019-12-22 11:00] VITALS: BP 100/82
--- NOTE | 2019-12-22 11:30 | PN ---
DATE: 12/22/2019 ATTENDING PHYSICIAN: Dr. Delatorre. SUBJECTIVE: No new complaints. He remains very calm, cooperative. Our dialogue is very fluent. He is very short. He is accepting the fact of the quarantine. He has no new complaints today. OBJECTIVE FINDINGS: VITAL SIGNS: Blood pressure today is 113/61, pulse 63 and regular, temperature 98.4 degrees Fahrenheit, room air saturation 95%. HEENT: Head is without trauma. Pupils are reactive. Sclerae nonicteric. Oropharynx clear. NECK: Supple, no bruits identified. LUNGS: Otherwise clear. CARDIOVASCULAR: Showed regular heart tones. No gallops. Peripheral pulses were palpable and full. ABDOMEN: Soft, nontender, no organomegaly. Bowel sounds are hypoactive. EXTREMITIES: Showed no cyanosis or edema. NEUROLOGIC: Focally intact. No deficit. ASSESSMENT: 1. A 79-year-old gentleman with positive exposure to coronavirus. He is totally asymptomatic. 2. Benign prostatic hypertrophy, stable. 3. Chronic kidney disease stage 3. 4. Essential hypertension. 5. Memory loss, stable. 6. Peripheral neuropathy. PLAN: 1. Continue quarantine in the COVID unit. 2. Home meds reviewed. 3. Diet as tolerated. 4. Discharge planning underway. PETE DELATORRE MD DR: PERRY/hamlet JOB#: [id number] / [id number]
[2019-12-22 16:20] VITALS: BP 128/79
[2019-12-22] MEDS: ENOXAPARIN 40 MG/0.4 ML SYRINGE. SQ SCH (18:00)
[2019-12-22 19:20] VITALS: BP 117/61
[2019-12-22] MEDS: risperiDONE 1 MG TABLET. PO SCH (20:34)
[2019-12-22] MEDS: DIVALPROEX ER 500 MG TAB.ER.24H PO SCH (20:34)
[2019-12-22] MEDS: traZODone 100 MG TABLET. PO SCH (20:35)
[2019-12-22] MEDS: MELATONIN 3 MG TABLET PO SCH (20:35)
[2019-12-22 22:36] VITALS: BP 97/55
[2019-12-23] MEDS: LEVOTHYROXINE 25 MCG TABLET. PO SCH (05:27)
[2019-12-23 05:41] VITALS: BP 91/55
[2019-12-23] MEDS: LACTOBACILLUS RHAMNOSUS GG 1 CAPSULE. PO SCH ×2 (09:27→21:30)
[2019-12-23] MEDS: SMZ/TMP 800/160MG TABLET. PO SCH ×2 (09:28→21:31)
[2019-12-23] MEDS: ACETAMINOPHEN 325 MG TABLET PO PRN (09:28)
[2019-12-23] MEDS: risperiDONE 0.5 MG TABLET. PO SCH (09:28)
[2019-12-23] MEDS: NEOMY/BACITR/POLYMYXIN OINT PACKET. TP SCH ×2 (09:28→21:31)
[2019-12-23 10:41] VITALS: BP 113/69
--- NOTE | 2019-12-23 11:08 | PN ---
DATE: 12/23/2019 ATTENDING PHYSICIAN: Dr. Delatorre and Dr. Guillory. SUBJECTIVE: Comfortable. He is asymptomatic, no complaints. He is anxious to go home. OBJECTIVE FINDINGS: VITAL SIGNS: The patient is afebrile, temperature is 97.7 degrees Fahrenheit, blood pressure 113/69 mmHg, heart rate 69 and regular, oxygen saturation 97% on room air. HEENT: Head is without trauma. Pupils are reactive. Sclerae nonicteric. Oropharynx clear. NECK: Supple, no bruits. LUNGS: Otherwise clear. CARDIOVASCULAR: Showed regular heart tones. No obvious gallops. Peripheral pulses are palpable and full. ABDOMEN: Soft, scaphoid, nontender, no organomegaly. Bowel sounds were hypoactive. EXTREMITIES: Showed no cyanosis or edema. NEUROLOGIC: Focally intact. Speech is fluent. No focal deficit. SKIN: Warm and dry. ASSESSMENT: 1. A 79-year-old gentleman with positive exposure to coronavirus. He remains totally asymptomatic despite positive swabs. 2. Benign prostatic hypertrophy, stable. 3. Chronic kidney disease stage 3. 4. Essential hypertension. 5. Peripheral neuropathy. PLAN: 1. Continue quarantine. 2. The new guidelines this week indicate that the patient can be discharged home if he has a 10 days quarantine given a positive swab and if the patient remains asymptomatic. He would certainly qualify, will have discharge planning. PETE DELATORRE MD DR: PERRY/hamlet JOB#: [id number] / [id number]
--- NOTE | 2019-12-23 11:30 | NUR ---
IP: patient has MRSA in finger wound, continue contact precautions.
[2019-12-23 14:46] VITALS: BP 123/69
--- NOTE | 2019-12-23 15:20 | NUR ---
Wound Care COVID + Proper PPE worn for assessment Wound Type/Assessment: Left index finger open blister, SCOTT Warren assessed. The wound was cleaned, measured, pictured and patient went back to soaking the finger. Treatment Recommendations/Plan: See SCOTT Warren's progress note. She ordered to continue with the finger soaks and then apply the Triple Antibiotic Ointment with a bandaid. Wound Care will continue to f/u for changes.
--- NOTE | 2019-12-23 15:53 | PDOC ---
SUBJECTIVE: Pt seen for paronychial infection, MRSA, of left 2nd finger. Pt denies pain of the infected finger at rest, states pain 3/10 with cleansing and palpation. Pt states he has been eating and drinking well with normal output. Denies n/v/d. Nursing staff deny concern. Pt positive for COVID 19, however currently asymptomatic. Denies cough, SOB, nasal congestion or drainage. OBJECTIVE: Problems: Wound care consulted for infection of the left index finger. Original consult on 12/18/19. Bulla I and D'd at bedside and cx obtained. Cx returned MRSA. Keflex dc'd and Bactrim initiated with tid Epson salt soaks. Pt awake and alert. Pleasant in conversation. Resp even and unlabored. Pt on RA, now requiring supplemental O2. Abdomen soft, nondistended and nontender. Skin WDP. Left second finger with popped bulla with exposed pink, smooth tissue. Several pustules present.Surrounding tissue without erythema or edema. Moderate serosanguineous drainage. Loose epithelial tissue removed with sterile scissors and pickups. Pt deneid painful symptoms. Erythema previously noted surrounding wound, now resolved. Vital Signs/I&O: Vital Signs Date Time Temp Pulse Resp B/P (MAP) Pulse Ox O2 Delivery O2 Flow Rate FiO2 12/23/19 14:46 98.2 63 20 123/69 (87) 97 12/23/19 08:00 Room Air I & O 12/22/19 12/22/19 12/23/19 15:00 23:00 07:00 Intake Total 720 ml 600 ml 120 ml Balance 720 ml 600 ml 120 ml ASSESSMENT: Parochial infection of left 2nd finger digit PLAN: - Loose epithelial tissue removed at bedside. Pt denied painful symptoms. No bleeding occurred. - Cx revealed MRSA, Bactrim initiated d/t sensitivity - Continue tid Epson Salt soaks - Apply bandaid for protection following soaks. Justification of Admission: Justification of Admission: Justification of Admission Dx: N/A Comments: COVID 19 positive MRSA infection of left 2nd finger digit RAMYA MCGEE [employer]PECT[employer] BARREL Dec 23, 2019 15:53
[2019-12-23] MEDS: ENOXAPARIN 40 MG/0.4 ML SYRINGE. SQ SCH (17:32)
[2019-12-23 19:00] VITALS: BP 133/66
[2019-12-23] MEDS: DIVALPROEX ER 500 MG TAB.ER.24H PO SCH (21:30)
[2019-12-23] MEDS: traZODone 100 MG TABLET. PO SCH (21:30)
[2019-12-23] MEDS: risperiDONE 1 MG TABLET. PO SCH (21:30)
[2019-12-23] MEDS: MELATONIN 3 MG TABLET PO SCH (21:31)
[2019-12-23 23:12] VITALS: BP 104/60
[2019-12-24 05:09] VITALS: BP 101/61
[2019-12-24] MEDS: LEVOTHYROXINE 25 MCG TABLET. PO SCH (06:09)
[2019-12-24] MEDS: SCOPOLAMINE 1.5MG PATCH. TD SCH (10:33)
[2019-12-24] MEDS: SMZ/TMP 800/160MG TABLET. PO SCH ×2 (10:33→20:27)
[2019-12-24] MEDS: risperiDONE 0.5 MG TABLET. PO SCH (10:33)
[2019-12-24] MEDS: NEOMY/BACITR/POLYMYXIN OINT PACKET. TP SCH ×2 (10:33→20:26)
[2019-12-24] MEDS: LACTOBACILLUS RHAMNOSUS GG 1 CAPSULE. PO SCH ×2 (10:33→20:26)
[2019-12-24 11:01] VITALS: BP 117/65
--- NOTE | 2019-12-24 11:04 | PN ---
DATE: 12/24/2019 ATTENDING PHYSICIAN: Dr. Delatorre and Dr. Guillory. SUBJECTIVE: Comfortable. No complaints. He is anxious to go home. OBJECTIVE FINDINGS: VITAL SIGNS: Blood pressure is 104/60 mmHg, pulse 63 and regular, oxygen saturation 96% on room air, temperature 97.1 degrees Fahrenheit. HEENT: Head is without trauma. Pupils are reactive. Sclerae nonicteric. Oropharynx clear. NECK: Supple. LUNGS: Clear. CARDIOVASCULAR: Showed regular heart tones. No gallops. ABDOMEN: Soft. EXTREMITIES: Showed no cyanosis. The blister on the left index finger is healing without any signs of infection. NEUROLOGIC: Focally intact. Speech is fluent. SKIN: Warm and dry. ASSESSMENT: 1. A 79-year-old gentleman positive exposure to coronavirus. He remains asymptomatic. 2. Benign prostatic hypertrophy, stable. 3. Chronic kidney disease stage 3. 4. Hypertension. 5. Peripheral neuropathy. PLAN: 1. Continue quarantine orders as prescribed. 2. His last positive swabs was 12/18/2019, is now possible to send him home 10 days following the last swab if he is asymptomatic that would set a target date of discharge for 12/28/2019. He is agreeable with the plan. PETE DELATORRE MD DR: PERRY/hamlet JOB#: [id number] / [id number]
[2019-12-24 14:48] VITALS: BP 116/61
--- NOTE | 2019-12-24 16:31 | NUR ---
Patient has been calm, compliant, pleasant, and cooperative throughout this shift. He has spent most of his time in his room watching TV. Patient was able to change the bandage on his left index finger with minimal assistance and set-up. Will continue to monitor and report to oncoming shift.
[2019-12-24] MEDS: ENOXAPARIN 40 MG/0.4 ML SYRINGE. SQ SCH (17:23)
[2019-12-24 18:58] VITALS: BP 118/61
[2019-12-24] MEDS: traZODone 100 MG TABLET. PO SCH (20:26)
[2019-12-24] MEDS: MELATONIN 3 MG TABLET PO SCH (20:26)
[2019-12-24] MEDS: DIVALPROEX ER 500 MG TAB.ER.24H PO SCH (20:27)
[2019-12-24] MEDS: risperiDONE 1 MG TABLET. PO SCH (20:27)
[2019-12-24 22:52] VITALS: BP 100/55
[2019-12-25] MEDS: LEVOTHYROXINE 25 MCG TABLET. PO SCH (05:19)
[2019-12-25 06:00] VITALS: BP 100/55
[2019-12-25] MEDS: LACTOBACILLUS RHAMNOSUS GG 1 CAPSULE. PO SCH ×2 (09:40→21:11)
[2019-12-25] MEDS: SMZ/TMP 800/160MG TABLET. PO SCH ×2 (09:40→21:11)
[2019-12-25] MEDS: risperiDONE 0.5 MG TABLET. PO SCH (09:40)
[2019-12-25] MEDS: NEOMY/BACITR/POLYMYXIN OINT PACKET. TP SCH ×2 (09:41→21:11)
[2019-12-25 10:40] VITALS: BP 107/55
--- NOTE | 2019-12-25 19:49 | PN ---
DATE: 12/25/2019 SUBJECTIVE: The patient is sitting on the edge of the bed comfortably, in no apparent distress. On questioning him, he denied any complaint. The blister and erythema of his index finger has improved and the blister was opened. The erythema has completely resolved. Apparently, he has had dressing changes done according to the recommendation. His culture revealed methicillin-resistant Staphylococcus aureus. He continued to be on Bactrim-DS and he is getting his dressing done 3 times a day. PHYSICAL EXAMINATION: GENERAL: When I examined him, he looked well and was clearly in no apparent respiratory distress, pale, but no jaundice, cyanosis or thyromegaly. No jugular venous distention. No lower limb edema. VITAL SIGNS: Her heart rate was 59, blood pressure was 107/55, temperature 96.8, respiratory rate 20, and oxygen saturation was 96%. HEAD, EYES, EARS, NOSE AND THROAT: Showed normocephalic, atraumatic. NECK: Supple. HEART: Showed normal first and second heart sounds. No gallop, rub or murmur. CHEST: Clear to auscultation. No crepitation or rhonchi. ABDOMEN: Distended, soft, nontender. NEUROLOGIC: He is awake, alert, responding appropriately. All cranial nerves are intact. He moves extremities without difficulty, ambulates without assistance or assistive devices. His intake over the last 24 hours was 900, no output was recorded. LABORATORY DATA: His most recent lab work available showed that his BUN was 23, creatinine is 1.6 with normal electrolytes and liver enzymes. His TSH was normal. His most recent hemoglobin was 11.7, hematocrit 35.5 with normal white cell count and platelets. ASSESSMENT: 1. A 79-year-old gentleman positive for coronavirus. He remains completely asymptomatic. 2. He has benign prostatic hypertrophy that is clinically stable. 3. Chronic kidney disease stage 3, stable. 4. Hypertension. 5. Peripheral neuropathy. 6. Infected left index finger with a culture growing methicillin-resistant Staphylococcus aureus, which he is on Bactrim and he has daily dressing changes. PLAN: To continue with quarantine as ordered. His last swab was on 12/18/2019. He will be swabbed again at the end of this week and probably discharged home if he is negative. ABBIE BARLOW MD DR: BRENDEN/hamlet JOB#: [id number] / [id number]
[2019-12-25 20:06] VITALS: BP 118/62
[2019-12-25] MEDS: traZODone 100 MG TABLET. PO SCH (21:11)
[2019-12-25] MEDS: MELATONIN 3 MG TABLET PO SCH (21:11)
[2019-12-25] MEDS: DIVALPROEX ER 500 MG TAB.ER.24H PO SCH (21:11)
[2019-12-25] MEDS: ENOXAPARIN 40 MG/0.4 ML SYRINGE. SQ SCH (21:12)
[2019-12-25] MEDS: risperiDONE 1 MG TABLET. PO SCH (21:16)
[2019-12-26] MEDS: LEVOTHYROXINE 25 MCG TABLET. PO SCH (05:41)
--- NOTE | 2019-12-26 05:50 | NUR ---
PT noted to be sleeping throughout most of night. PT was calm and cooperative with assessment and cares. PT able to take medications singly and tolerated well. PT very pleasant on interactions.
[2019-12-26] MEDS: SMZ/TMP 800/160MG TABLET. PO SCH ×2 (08:06→21:20)
[2019-12-26] MEDS: LACTOBACILLUS RHAMNOSUS GG 1 CAPSULE. PO SCH ×2 (08:06→21:20)
[2019-12-26] MEDS: NEOMY/BACITR/POLYMYXIN OINT PACKET. TP SCH ×2 (08:06→21:20)
[2019-12-26] MEDS: risperiDONE 0.5 MG TABLET. PO SCH (08:06)
[2019-12-26 08:35] VITALS: BP 102/54
[2019-12-26 19:33] VITALS: BP 123/69
[2019-12-26] MEDS: traZODone 100 MG TABLET. PO SCH (21:20)
[2019-12-26] MEDS: risperiDONE 1 MG TABLET. PO SCH (21:20)
[2019-12-26] MEDS: MELATONIN 3 MG TABLET PO SCH (21:20)
[2019-12-26] MEDS: DIVALPROEX ER 500 MG TAB.ER.24H PO SCH (21:20)
[2019-12-26] MEDS: ENOXAPARIN 40 MG/0.4 ML SYRINGE. SQ SCH (21:21)
--- NOTE | 2019-12-26 22:43 | PDOC ---
Exam Note: Quoc Note: This is a late entry for DOS 12/26/19. Please also refer to the separate dictated note~for this date of service dictated separately.~Patient seen individually. Discussed the patient with Nursing staff reviewed the chart.~Reviewed interim history and current functioning. Reviewed vital signs,~Labs/ Radiology~and current medications noted below. Continue current treatment with the changes noted in the dictated addendum note Assessment: Vital Signs/I&O: Vital Signs Date Time Temp Pulse Resp B/P (MAP) Pulse Ox O2 Delivery O2 Flow Rate FiO2 12/26/19 21:41 Room Air 12/26/19 19:33 98.1 61 20 123/69 (87) 96 I & O 12/25/19 12/25/19 12/26/19 15:00 23:00 07:00 Intake Total 480 ml 360 ml Balance 480 ml 360 ml Current Medications: I have reviewed the current psychotropics carefully including drug interactions. Risk benefit ratio favors no change other than as noted in my dictated progress note. Diagnosis: Problems: (1) Bipolar disorder, curr episode mixed, severe, with psychotic features (2) Impulse control disorder, unspecified (3) Mild cognitive impairment (4) Anxiety disorder, unspecified (5) Bipolar disorder, current episode manic severe with psychotic features WAN SEO MD Dec 26, 2019 22:43
--- NOTE | 2019-12-26 23:33 | PN ---
DATE: 12/26/2019 SUBJECTIVE: The patient is sitting comfortably in his chair, in no apparent distress. He continued to be completely asymptomatic and nursing staff stated that he has been extremely pleasant, cooperative and compliant. Apparently, he will be discharged home tomorrow. PHYSICAL EXAMINATION: GENERAL: When I examined him, he looked pale, but no jaundice, cyanosis or thyromegaly. No jugular venous distention or limb edema. VITAL SIGNS: His heart rate was 54, blood pressure was 102/54, temperature was 97, respiratory rate was 18 and oxygen saturation was 98%. HEENT: Normocephalic, atraumatic. NECK: Supple. HEART: Normal first and second sounds. No gallop, rub or murmur. CHEST: Clear to auscultation. No crepitation or rhonchi. ABDOMEN: Distended, soft, nontender. No guarding or rigidity. No organomegaly. All hernial orifices intact. Bowel sounds normal. NEUROLOGIC: He is awake, alert, responding appropriately. All cranial nerves are intact. He moves extremities without difficulty, ambulates without assistance or assistive devices. His intake over the last 24 hours was 1000. No output was recorded. LABORATORY DATA: No lab work was available today. ASSESSMENT: 1. This is a 79-year-old gentleman positive for coronavirus. He remains completely asymptomatic. 2. He has benign prostatic hypertrophy that is clinically stable. 3. Chronic kidney disease stage 3, stable. 4. Hypertension. 5. Peripheral neuropathy. 6. Infected left index finger, the culture grew methicillin-resistant Staphylococcus aureus, for which he is on Bactrim and has daily dressing changes. PLAN: To be discharged home tomorrow. ABBIE BARLOW MD DR: BRENDEN/hamlet JOB#: [id number] / [id number]
[2019-12-27] MEDS: LEVOTHYROXINE 25 MCG TABLET. PO SCH (05:48)
--- NOTE | 2019-12-27 07:23 | PDOC ---
Exam Note: Quoc Note: This note is a late entry for 12/26/2019 covers elements not covered in my initial note. Subjective: The patient was seen on telehealth rounds in the evening of 12/26/2019 with Chiquita NELSON. The patient has been quite appropriate on the [facility] isolation unit. He is much less grandiose. No overt psychotic symptoms, suicidal or homicidal ideation. Sleep and appetite have been fair. At times he gets a little grandiose but minimal if at all. I received a call from the patients and had a lengthy discussion with her about the patients current psychotropics including Risperdal 0.5 mg a.m. and 1 mg h.s., Depakote ER 500 mg two at night, trazodone h.s., melatonin h.s. We discussed his diagnosis at great length further treatment plans. He is going to get home health services at home and follow up with Dr. Philippe outpatient. At some point the Risperdal should be gradually tapered by about 0.25 mg every few weeks to see what is the lowest dosage he can be stable on. The repeatedly expressed appreciation of all the treatment and care the patient has received at the hospital and very good communication she has had and appreciative of the visit today. Review of Systems: No CV, , pulmonary, eye system symptoms on review. Mental Status Exam: Oriented reasonably. Speech has been coherent. Abstraction fair. Computation reasonable. No suicidal or homicidal ideation. Laboratory Data: Reviewed. Impression: Bipolar disorder manic with psychotic features in partial remission. Mild cognitive impairment. Plan: Continue current psychotropics. Received informed consent. Psychological testing could be repeated at some point in the future to compare with what was done in the hospital and requested this. Assessment: Vital Signs/I&O: Vital Signs Date Time Temp Pulse Resp B/P (MAP) Pulse Ox O2 Delivery O2 Flow Rate FiO2 12/26/19 21:41 Room Air 12/26/19 19:33 98.1 61 20 123/69 (87) 96 I & O 12/26/19 12/26/19 12/27/19 15:00 23:00 07:00 Intake Total 1080 ml 240 ml Balance 1080 ml 240 ml Current Medications: I have reviewed the current psychotropics carefully including drug interactions. Risk benefit ratio favors no change other than as noted in my dictated progress note. Diagnosis: Problems: (1) COVID-19 (2) Impulse control disorder, unspecified (3) Mild cognitive impairment (4) Anxiety disorder, unspecified (5) Bipolar disorder, current episode manic severe with psychotic features (6) Bipolar disorder, curr episode mixed, severe, with psychotic features WAN SEO MD Dec 27, 2019 07:23
[2019-12-27] MEDS: LACTOBACILLUS RHAMNOSUS GG 1 CAPSULE. PO SCH (08:00)
[2019-12-27] MEDS: SCOPOLAMINE 1.5MG PATCH. TD SCH ×2 (08:00→09:00)
[2019-12-27] MEDS: NEOMY/BACITR/POLYMYXIN OINT PACKET. TP SCH (08:00)
[2019-12-27] MEDS: SMZ/TMP 800/160MG TABLET. PO SCH (08:00)
[2019-12-27] MEDS: risperiDONE 0.5 MG TABLET. PO SCH (08:00)
[2019-12-27 08:13] VITALS: BP 117/69
--- NOTE | 2019-12-27 13:35 | NUR ---
Patient is discharging. Pt agrees with discharge plan. Instructions gone over with patient and . Belongings including seroquel and jewelry given back to patient. Dentures were lost during admission on [facility] and were not logged for this admission. Pt escorted to front entrance by RN.
--- NOTE | 2019-12-27 13:38 | DS ---
DATE OF DISCHARGE: HOSPITAL COURSE: The patient is a 79-year-old male patient who was transferred from [facility] on account of being positive for COVID-19; however, the patient was asymptomatic since admission to [facility] on 12/12. He remained asymptomatic with no fever. No cough or phlegm, no shortness of breath or hypoxia. His liver enzymes are all normal. While in [facility], he developed an infection of his left finger with a blister that was opened spontaneously. He was seen by the wound care team and he was started on Bactrim DS 1 tablet twice a day together with local wound care. All the erythema has completely resolved and as he remained stable and afebrile, a decision was made to discharge him home. PHYSICAL EXAMINATION: GENERAL: When I saw him this afternoon, he looked well and was clearly in no apparent respiratory distress. He was slightly pale, but no jaundice, cyanosis or thyromegaly. No jugular venous distention. No limb edema. HEAD, EYES, EARS, NOSE AND THROAT: Showed normocephalic, atraumatic. NECK: Supple. HEART: Showed normal first and second heart sounds. No gallop or murmur. CHEST: Clear to auscultation. No crepitation or rhonchi. ABDOMEN: Distended, soft, nontender. NEUROLOGIC: He was grossly intact. LABORATORY DATA: His most recent lab work showed a white cell count of 5,400, hemoglobin 11, hematocrit 35, MCV 93, and platelet count 222,000. His chemistry showed a serum sodium 138, potassium 4.3, chloride 106, bicarbonate 23, anion gap of 9, BUN 23, creatinine 1.6, estimated GFR was 41 mL per minute. His glucose was 87, calcium was 8.2. Total bilirubin, AST, ALT, alkaline phosphatase were normal. Total protein was 5.9, albumin 2.1. TSH was 0.44. His D-dimer was 0.6. DISCHARGE MEDICATIONS: He will be discharged on Tylenol 650 mg every 6 hours, divalproex 1000 mg p.o. at bedtime, levothyroxine sodium 25 mcg once a day, Mylanta 15 mL after meals and as needed, milk of magnesia 30 mL p.o. daily p.r.n. for constipation, melatonin 6 mg at bedtime, olanzapine 5 mg twice a day, risperidone 0.5 mg daily, risperidone 1 mg at bedtime, scopolamine transdermal patch every 3 days, trazodone 50 mg daily p.r.n. at bedtime for insomnia and again another trazodone 100 mg p.o. at bedtime for insomnia. FINAL DISCHARGE DIAGNOSES: 1. Bipolar disorder with acute manic episode that has resolved. 2. Hypertension, well controlled. 3. Benign prostatic hypertrophy. 4. Hyperlipidemia. 5. Peripheral neuropathy. 6. Sensorineural deafness. 7. Chronic kidney disease. 8. Diverticulitis. ABBIE BARLOW MD DR: BRENDEN/hamlet JOB#: [id number] / [id number]
== END 2019-12-27 13:22 | disposition home or self-care (01) | DRG 177 ==
LOC: 1 SOUTH 14:15 → UNDOADMIN 14:15
PROVIDERS: ADMIT Internal Medicine; ATTEND Internal Medicine
PROC: 0H9QXZZ Drainage of Finger Nail, External Approach (ICD-10-PCS; principal; 2019-12-18)
DX: U07.1 COVID-19 (principal); E43 Unspecified severe protein-calorie malnutrition; F31.2 Bipolar disorder, current episode manic severe with psychotic features; N17.9 Acute kidney failure, unspecified; K57.92 Diverticulitis of intestine, part unspecified, without perforation or abscess without bleeding; E03.9 Hypothyroidism, unspecified; E78.5 Hyperlipidemia, unspecified; F41.9 Anxiety disorder, unspecified; G31.84 Mild cognitive impairment of uncertain or unknown etiology; G62.9 Polyneuropathy, unspecified; H90.5 Unspecified sensorineural hearing loss; I12.9 Hypertensive chronic kidney disease with stage 1 through stage 4 chronic kidney disease, or unspecified chronic kidney disease; M19.90 Unspecified osteoarthritis, unspecified site; N18.3 Chronic kidney disease, stage 3 (moderate); N40.0 Benign prostatic hyperplasia without lower urinary tract symptoms; Z85.820 Personal history of malignant melanoma of skin; Z96.643 Presence of artificial hip joint, bilateral; L03.012 Cellulitis of left finger
CPT/HCPCS: 36415; 80053; 84443; 85007; 85025; 85027; 85379; 86140; 87070; 87077; 87186; J1650; U0003-CS